=== PATIENT | male | born 1945 | race Caucasian/White ===

== ENCOUNTER 2021-01-10 07:41 | Outpatient (REF) | payer MEDICARE, SELFPAY ==
[2021-01-10 11:15] LABS: Hematocrit 42.3 % (42-52); Hemoglobin 14.1 g/dl (14.0-18.0); Mean Corpuscular HGB Conc 33.3 g/dl (31.0-36.0); Mean Corpuscular Hemoglobin 30.4 pg (27.0-33.0); Mean Corpuscular Volume 91.2 fL (80-98); Platelet Count 367 X10*3/uL (160-400); Red Blood Count 4.64 X10*6/uL (4.60-5.80); Red Cell Distribution Width 13.1 % (11.0-16.0); White Blood Count 8.9 X10*3/uL (4.8-10.8)
[2021-01-10 11:24] LABS: Estimated Average Glucose 146 mg/dL; Hemoglobin A1c % 6.7 %
[2021-01-10 11:46] LABS: Alanine Aminotransferase 82 U/L (0-40); Albumin Level 4.2 g/dL (3.5-5.0); Alkaline Phosphatase 90 U/L (39-117); Anion Gap 14 (12-20); Aspartate Amino Transferase 57 U/L (5-37); Bilirubin Total 0.3 mg/dL (0.0-1.0); Blood Urea Nitrogen 8 mg/dL (9-16); Calcium 9.5 mg/dL (8.4-10.2); Carbon Dioxide 32 mmol/L (22-29); Chloride 97 mmol/L (96-108); Cholesterol 147 mg/dL; Estimated Glomerular Filt Rate > 60; Glucose Fasting 168 mg/dL (60-99); HDL Cholesterol 54 mg/dL; LDL Cholesterol Calculated 61 mg/dl; Potassium 5.5 mmol/L (3.3-5.1); Sodium 137 mmol/L (135-145); Total Protein 7.4 g/dL (6.5-8.0); Triglycerides 162 mg/dL
[2021-01-10 12:02] LABS: Creatinine Urine 116.48 mg/dL; Microalbum/Creatinine Ratio Ur 64.3 ug/mg cr
[2021-01-10 12:10] LABS: Prostate Specific Antigen Scr 0.18 ng/mL (<0.05-4.0)
== END 2021-01-10 07:42 | disposition home or self-care (01) ==
LOC: HO.HMGCLDS 07:41
PROVIDERS: PCP Internal Medicine; Visit Provider Internal Medicine
DX: E11.9 Type 2 diabetes mellitus without complications (principal); I10 Essential (primary) hypertension; E78.5 Hyperlipidemia, unspecified
CPT/HCPCS: 36415; 80053; 80061; 82043; 83036; 84153; 85027

== ENCOUNTER 2021-02-17 14:22 | Outpatient (REF) | payer MEDICARE, SELFPAY ==
[2021-02-17 16:22] LABS: Hematocrit 43.3 % (42-52); Hemoglobin 15.3 g/dl (14.0-18.0); Mean Corpuscular HGB Conc 35.3 g/dl (31.0-36.0); Mean Corpuscular Hemoglobin 30.6 pg (27.0-33.0); Mean Corpuscular Volume 86.6 fL (80-98); Mean Platelet Volume 8.9 fL (9.4-12.4); Platelet Count 413 X10*3/uL (160-400); Red Cell Distribution Width 12.8 % (11.0-16.0); White Blood Count 11.9 X10*3/uL (4.8-10.8)
[2021-02-17 16:32] LABS: Estimated Average Glucose 160 mg/dL; Hemoglobin A1c % 7.2 %
[2021-02-17 16:38] LABS: Glucose Urine UA 100 MG/DL (NEG); Leukocyte Esterase Urine NEG (NEG); Nitrite Urine NEG (NEG); PH 6.5 (5.0-8.0); Urine Blood TRACE (NEG); Urine Ketones NEG (NEG); Urine Protein NEG (NEG-TRACE)
[2021-02-17 16:39] LABS: Appearance Urine CLEAR; Color Urine DARK YELLOW
[2021-02-17 16:50] LABS: Alanine Aminotransferase 58 U/L (0-40); Albumin Level 4.6 g/dL (3.5-5.0); Alkaline Phosphatase 81 U/L (39-117); Anion Gap 17 (12-20); Aspartate Amino Transferase 34 U/L (5-37); Bilirubin Total 0.4 mg/dL (0.0-1.0); Blood Urea Nitrogen 17 mg/dL (9-16); Calcium 9.7 mg/dL (8.4-10.2); Carbon Dioxide 27 mmol/L (22-29); Chloride 90 mmol/L (96-108); Cholesterol 170 mg/dL; Estimated Glomerular Filt Rate > 60; Glucose Fasting 164 mg/dL (60-99); HDL Cholesterol 67 mg/dL; LDL Cholesterol Calculated 65 mg/dl; Potassium 4.2 mmol/L (3.3-5.1); Sodium 130 mmol/L (135-145); Total Protein 7.7 g/dL (6.5-8.0); Triglycerides 192 mg/dL
[2021-02-17 16:57] LABS: Mucus Urine TRACE /LPF; RBC Urine 0-2 /HPF (0); WBC Urine 0-2 /HPF (0-4)
[2021-02-17 17:03] LABS: Creatinine Urine 126.23 mg/dL; Microalbum/Creatinine Ratio Ur 101.4 ug/mg cr
== END 2021-02-17 14:23 | disposition home or self-care (01) ==
LOC: HO.HMGCLDS 14:22
PROVIDERS: PCP Internal Medicine; Visit Provider Internal Medicine
DX: E11.9 Type 2 diabetes mellitus without complications (principal); E78.5 Hyperlipidemia, unspecified; E87.5 Hyperkalemia; I10 Essential (primary) hypertension; F41.9 Anxiety disorder, unspecified
CPT/HCPCS: 36415; 80048; 80053; 80061; 81001; 82043; 83036; 85027

== ENCOUNTER 2021-04-26 08:03 | Outpatient (REF) | payer MEDICARE, SELFPAY ==
[2021-04-26 11:26] LABS: Glucose Urine UA 100 MG/DL (NEG); Leukocyte Esterase Urine NEG (NEG); Nitrite Urine NEG (NEG); PH 6.5 (5.0-8.0); Urine Blood NEG (NEG); Urine Ketones NEG (NEG); Urine Protein 1+ MG/DL (NEG-TRACE)
[2021-04-26 11:28] LABS: Appearance Urine CLEAR; Color Urine YELLOW
[2021-04-26 11:42] LABS: Squamous Epithelial Cell Urine TRACE /LPF; WBC Urine 0-2 /HPF (0-4)
[2021-04-26 11:45] LABS: Anion Gap 15 (12-20); Blood Urea Nitrogen 14 mg/dL (9-16); Calcium 9.8 mg/dL (8.4-10.2); Carbon Dioxide 30 mmol/L (22-29); Chloride 92 mmol/L (96-108); Estimated Glomerular Filt Rate > 60; Glucose Random 128 mg/dL (60-115); Potassium 4.7 mmol/L (3.3-5.1); Sodium 132 mmol/L (135-145)
== END 2021-04-26 08:04 | disposition home or self-care (01) ==
LOC: HO.HMGCLDS 08:03
PROVIDERS: PCP Internal Medicine; Visit Provider Internal Medicine
DX: E87.1 Hypo-osmolality and hyponatremia (principal); E78.5 Hyperlipidemia, unspecified; E87.5 Hyperkalemia; I10 Essential (primary) hypertension; E11.9 Type 2 diabetes mellitus without complications
CPT/HCPCS: 36415; 80048; 81001

== ENCOUNTER 2021-07-19 07:02 | Outpatient (REF) | payer MEDICARE, SELFPAY ==
[2021-07-19 11:19] LABS: Appearance Urine CLEAR; Color Urine YELLOW; Glucose Urine UA 100 MG/DL (NEG); Leukocyte Esterase Urine NEG (NEG); Nitrite Urine NEG (NEG); Urine Blood NEG (NEG); Urine Ketones NEG (NEG); Urine Protein NEG (NEG-TRACE)
[2021-07-19 11:32] LABS: MANUAL DIFF FLAG NO
[2021-07-19 11:43] LABS: Basophils Percent Auto 0.5 % (0-2); Eosinophils Absolute Auto 0.6 X10*3/uL (0.0-0.4); Eosinophils Percent Auto 8.5 % (0-4); Hematocrit 41.8 % (42-52); Hemoglobin 14.2 g/dl (14.0-18.0); Imm Gran Abs Auto 0.02 X10*3/uL (0.00-0.03); Imm Gran Pct Auto 0.3 % (0.0-0.4); Lymphocytes Absolute Auto 3.3 X10*3/uL (1.2-4.9); Lymphocytes Percent Auto 43.3 % (20-40); Mean Corpuscular Hemoglobin 30.5 pg (27.0-33.0); Mean Corpuscular Volume 89.7 fL (80-98); Mean Platelet Volume 9.1 fL (9.4-12.4); Monocytes Absolute Auto 0.8 X10*3/uL (0.1-1.2); Monocytes Percent Auto 9.9 % (2-11); Neutrophils Absolute Auto 2.8 X10*3/uL (2.0-8.3); Neutrophils Percent Auto 37.5 % (45-73); Platelet Count 329 X10*3/uL (160-400); Red Blood Count 4.66 X10*6/uL (4.60-5.80); Red Cell Distribution Width 12.9 % (11.0-16.0); White Blood Count 7.6 X10*3/uL (4.8-10.8)
[2021-07-19 11:49] LABS: Estimated Average Glucose 137 mg/dL; Hemoglobin A1C 160.7444 umol/L; Hemoglobin A1c % 6.4 %
[2021-07-19 12:08] LABS: Alanine Aminotransferase 64 U/L (0-40); Albumin Level 4.1 g/dL (3.5-5.0); Alkaline Phosphatase 72 U/L (39-117); Anion Gap 18 (12-20); Aspartate Amino Transferase 46 U/L (5-37); Bilirubin Total 0.6 mg/dL (0.0-1.0); Blood Urea Nitrogen 9 mg/dL (9-16); Calcium 9.7 mg/dL (8.4-10.2); Carbon Dioxide 29 mmol/L (22-29); Chloride 95 mmol/L (96-108); Cholesterol 160 mg/dL; Estimated Glomerular Filt Rate > 60; Glucose Fasting 141 mg/dL (60-99); HDL Cholesterol 55 mg/dL; LDL Cholesterol Calculated 75 mg/dl; Potassium 4.7 mmol/L (3.3-5.1); Sodium 137 mmol/L (135-145); Total Protein 6.9 g/dL (6.5-8.0); Triglycerides 153 mg/dL
[2021-07-19 12:17] LABS: Anion Gap 17 (12-20); Blood Urea Nitrogen 9 mg/dL (9-16); Calcium 9.8 mg/dL (8.4-10.2); Carbon Dioxide 29 mmol/L (22-29); Chloride 95 mmol/L (96-108); Estimated Glomerular Filt Rate > 60; Glucose Random 138 mg/dL (60-115); Magnesium 1.6 mg/dL (1.6-2.6); Potassium 4.6 mmol/L (3.3-5.1); Sodium 136 mmol/L (135-145)
[2021-07-19 12:18] LABS: Creatinine Urine 59.46 mg/dL; Microalbum/Creatinine Ratio Ur 38.6 ug/mg cr
[2021-07-19 12:32] LABS: TSH reflex Free T4 2.22 uIU/mL (0.32-4.0)
[2021-07-19 13:14] LABS: RBC Urine 0-2 /HPF (0)
[2021-07-19 13:15] LABS: WBC Urine 0-2 /HPF (0-4)
== END 2021-07-19 07:03 | disposition home or self-care (01) ==
LOC: HO.HMGCLDS 07:02
PROVIDERS: PCP Internal Medicine; Visit Provider Internal Medicine Cardiovascular Disease
DX: I48.0 Paroxysmal atrial fibrillation (principal); I10 Essential (primary) hypertension; E87.5 Hyperkalemia; E87.1 Hypo-osmolality and hyponatremia; E78.5 Hyperlipidemia, unspecified; E11.9 Type 2 diabetes mellitus without complications
CPT/HCPCS: 36415; 80048; 80053; 80061; 81001; 82043; 83036; 83735; 84443; 85025

== ENCOUNTER 2022-05-16 06:07 | Outpatient (REF) | payer MEDICARE, SELFPAY ==
[2022-05-16 12:02] LABS: Estimated Average Glucose 137 mg/dL; Hemoglobin A1c % 6.4 %
[2022-05-16 12:22] LABS: Alanine Aminotransferase 68 U/L (0-40); Albumin Level 4.3 g/dL (3.5-5.0); Alkaline Phosphatase 61 U/L (39-117); Anion Gap 14 (12-20); Aspartate Amino Transferase 38 U/L (5-37); Bilirubin Total 0.6 mg/dL (0.0-1.0); Blood Urea Nitrogen 11 mg/dL (9-16); Calcium 9.6 mg/dL (8.4-10.2); Carbon Dioxide 32 mmol/L (22-29); Chloride 95 mmol/L (96-108); Cholesterol 175 mg/dL; Estimated Glomerular Filt Rate > 60; Glucose Fasting 150 mg/dL (60-99); HDL Cholesterol 54 mg/dL; LDL Cholesterol Calculated 93 mg/dl; Potassium 4.7 mmol/L (3.3-5.1); Sodium 136 mmol/L (135-145); Total Protein 7.2 g/dL (6.5-8.0); Triglycerides 142 mg/dL
[2022-05-16 12:40] LABS: Creatinine Urine 68.41 mg/dL; Microalbum/Creatinine Ratio Ur 43.8 ug/mg cr
== END 2022-05-16 06:08 | disposition home or self-care (01) ==
LOC: HO.HMGCLDS 06:07
PROVIDERS: Visit Provider Internal Medicine
DX: E11.9 Type 2 diabetes mellitus without complications (principal); E78.5 Hyperlipidemia, unspecified; I10 Essential (primary) hypertension
CPT/HCPCS: 36415; 80053; 80061; 82043; 83036

== ENCOUNTER 2022-08-11 06:09 | Outpatient (REF) | payer MEDICARE, SELFPAY ==
[2022-08-11 11:46] LABS: Estimated Average Glucose 146 mg/dL; Hemoglobin A1c % 6.7 %
[2022-08-11 11:53] LABS: Anion Gap 15 (12-20); Blood Urea Nitrogen 12 mg/dL (9-16); Carbon Dioxide 31 mmol/L (22-29); Chloride 93 mmol/L (96-108); Estimated Glomerular Filt Rate > 60; Glucose Fasting 158 mg/dL (60-99); Potassium 4.4 mmol/L (3.3-5.1); Sodium 135 mmol/L (135-145)
[2022-08-11 11:54] LABS: Alanine Aminotransferase 59 U/L (0-40); Albumin Level 4.2 g/dL (3.5-5.0); Alkaline Phosphatase 67 U/L (39-117); Aspartate Amino Transferase 39 U/L (5-37); Bilirubin Total 0.4 mg/dL (0.0-1.0); Calcium 9.8 mg/dL (8.4-10.2); Cholesterol 180 mg/dL; HDL Cholesterol 56 mg/dL; LDL Cholesterol Calculated 76 mg/dl; Total Protein 6.8 g/dL (6.5-8.0); Triglycerides 241 mg/dL
== END 2022-08-11 06:10 | disposition home or self-care (01) ==
LOC: HO.HMGCLDS 06:09
PROVIDERS: PCP Internal Medicine; Visit Provider Internal Medicine
DX: E11.9 Type 2 diabetes mellitus without complications (principal); E78.5 Hyperlipidemia, unspecified; I10 Essential (primary) hypertension
CPT/HCPCS: 36415; 80053; 80061; 83036

== ENCOUNTER 2023-01-08 07:14 | Outpatient (REF) | payer MEDICARE, SELFPAY ==
[2023-01-08 12:19] LABS: Estimated Average Glucose 140 mg/dL; Hemoglobin A1c % 6.5 %
[2023-01-08 12:34] LABS: Alanine Aminotransferase 69 U/L (0-40); Alkaline Phosphatase 73 U/L (39-117); Anion Gap 16 (12-20); Aspartate Amino Transferase 51 U/L (5-37); Bilirubin Total 0.6 mg/dL (0.0-1.0); Blood Urea Nitrogen 12 mg/dL (9-16); Calcium 9.2 mg/dL (8.4-10.2); Carbon Dioxide 29 mmol/L (22-29); Chloride 96 mmol/L (96-108); Cholesterol 172 mg/dL; Estimated Glomerular Filt Rate > 60; Glucose Fasting 135 mg/dL (60-99); HDL Cholesterol 56 mg/dL; LDL Cholesterol Calculated 77 mg/dl; Potassium 4.3 mmol/L (3.3-5.1); Sodium 137 mmol/L (135-145); Total Protein 6.5 g/dL (6.5-8.0); Triglycerides 195 mg/dL
[2023-01-08 12:44] LABS: Creatinine Urine 111.51 mg/dL; Microalbum/Creatinine Ratio Ur 67.2 ug/mg cr
== END 2023-01-08 07:15 | disposition home or self-care (01) ==
LOC: HO.HMGCLDS 07:14
PROVIDERS: PCP Internal Medicine; Visit Provider Internal Medicine
DX: Z00.00 Encounter for general adult medical examination without abnormal findings (principal); Z12.5 Encounter for screening for malignant neoplasm of prostate; E11.9 Type 2 diabetes mellitus without complications; E78.5 Hyperlipidemia, unspecified; I10 Essential (primary) hypertension
CPT/HCPCS: 36415; 80053; 80061; 82043; 83036; 84153

== ENCOUNTER 2023-01-26 07:50 | Outpatient (REF) | payer MEDICARE, SELFPAY ==
[2023-01-26 12:17] LABS: C Reactive Protein 0.22 mg/dL (< or = 0.50)
[2023-01-26 12:39] LABS: Erythrocyte Sedimentation Rate 5 MM/HR (0-15)
== END 2023-01-26 07:51 | disposition home or self-care (01) ==
LOC: HO.HMGCLDS 07:50
PROVIDERS: PCP Internal Medicine; Visit Provider Internal Medicine
DX: H49.20 Sixth [abducent] nerve palsy, unspecified eye (principal)
CPT/HCPCS: 36415; 85652; 86140

== ENCOUNTER 2023-05-01 07:08 | Outpatient (REF) | payer MEDICARE, SELFPAY ==
[2023-05-01 11:12] LABS: MANUAL DIFF FLAG NO
[2023-05-01 11:37] LABS: Basophils Percent Auto 0.4 % (0-2); Eosinophils Absolute Auto 0.4 X10*3/uL (0.0-0.4); Eosinophils Percent Auto 4.3 % (0-4); Hematocrit 44.1 % (42.0-52.0); Hemoglobin 15.1 g/dl (14.0-18.0); Imm Gran Abs Auto 0.03 X10*3/uL (0.00-0.03); Imm Gran Pct Auto 0.3 % (0.0-0.4); Lymphocytes Absolute Auto 3.6 X10*3/uL (1.2-4.9); Lymphocytes Percent Auto 34.6 % (20-40); Mean Corpuscular HGB Conc 34.2 g/dl (31.0-36.0); Mean Corpuscular Hemoglobin 29.9 pg (27.0-33.0); Mean Corpuscular Volume 87.3 fL (80.0-98.0); Mean Platelet Volume 8.8 fL (9.4-12.4); Monocytes Absolute Auto 0.8 X10*3/uL (0.1-1.2); Monocytes Percent Auto 8.1 % (2-11); Neutrophils Absolute Auto 5.4 x10*3/uL (2.0-8.3); Neutrophils Percent Auto 52.3 % (45-73); Platelet Count 329 X10*3/uL (160-400); Red Blood Count 5.05 X10*6/uL (4.60-5.80); Red Cell Distribution Width 13.3 % (11.0-16.0); White Blood Count 10.3 X10*3/uL (4.8-10.8)
[2023-05-01 11:43] LABS: Estimated Average Glucose 143 mg/dL; Hemoglobin A1c % 6.6 %
[2023-05-01 11:46] LABS: Alanine Aminotransferase 44 U/L (0-40); Albumin Level 4.1 g/dL (3.5-5.0); Alkaline Phosphatase 55 U/L (39-117); Anion Gap 17 (12-20); Aspartate Amino Transferase 27 U/L (5-37); Bilirubin Total 0.6 mg/dL (0.0-1.0); Blood Urea Nitrogen 11 mg/dL (9-16); Calcium 10.1 mg/dL (8.4-10.2); Carbon Dioxide 28 mmol/L (22-29); Chloride 95 mmol/L (96-108); Cholesterol 166 mg/dL; Estimated Glomerular Filt Rate > 60; Glucose Fasting 147 mg/dL (60-99); HDL Cholesterol 64 mg/dL; LDL Cholesterol Calculated 79 mg/dl; Potassium 4.7 mmol/L (3.3-5.1); Sodium 135 mmol/L (135-145); Triglycerides 116 mg/dL
[2023-05-01 12:17] LABS: Creatinine Urine 130.67 mg/dL; Microalbum/Creatinine Ratio Ur 54.3 ug/mg cr
== END 2023-05-01 07:09 | disposition home or self-care (01) ==
LOC: HO.HMGCLDS 07:08
PROVIDERS: PCP Internal Medicine; Visit Provider Internal Medicine
DX: H49.20 Sixth [abducent] nerve palsy, unspecified eye (principal); E78.5 Hyperlipidemia, unspecified; I10 Essential (primary) hypertension; E11.9 Type 2 diabetes mellitus without complications
CPT/HCPCS: 36415; 80053; 80061; 82043; 83036; 85025

== ENCOUNTER 2023-05-02 12:32 | Outpatient (AMB) | payer MEDICARE, SELFPAY ==
--- NOTE | 2023-05-02 12:59 | MHC.PC.OV ---
Vital Signs 05/02/23 13:00 Height 6 ft 1 in Weight 233 lb BMI 30.7 BP 120/68 Blood Pressure Location Rt brachial Position Sitting Pulse 76 Pulse Source Pulse Oximeter Pulse Oximetry (%) 96 Oxygen Delivery Method Room Air Intake Visit Reasons: 3m follow up DM Intake Note: Pt is here today for 3 months follow up visit on DM. Allergies amoxicillin [Augmentin] Allergy (Unknown, Verified 05/02/23 13:07) diarrhea clavulanic acid [Augmentin] Allergy (Unknown, Verified 05/02/23 13:07) diarrhea Sulfa (Sulfonamide Antibiotics) [SULFA(SULFONAMIDE ANTIBIOTICS)] Allergy (Unknown, Verified 05/02/23 13:07) Swelling Medication List - Last Reconciled 05/02/23 by Kyung Soot MD apixaban (Eliquis) 5 mg PO BID azelastine 1 spray intranasal BID blood sugar diagnostic QD carvedilol 25 mg PO BID clotrimazole 1% appl topical diltiazem HCl 240 mg PO DAILY dulaglutide (Trulicity) 1.5 mg (0.5 mL) subcut QWEEK duloxetine 60 mg PO DAILY gabapentin 1,200 mg (2 x 600 mg) PO BID glipizide 5 mg PO BID Jardiance (empagliflozin) 10 mg PO DAILY NS ketoconazole 2% 1 appl topical DAILY lancets (OneTouch UltraSoft Lancets) qd lisinopril 40 mg PO DAILY metformin 1,000 mg PO BID omeprazole 40 mg PO DAILY pravastatin 40 mg PO DAILY Tobacco use date assessed: 05/02/23 Fall risk assessment: No Falls in past year Last assessed Fall Risk: 01/11/23 Dental Screening Dental Screen Date: 05/02/23 Did you have a dental visit in the last 12 months?: Yes Did you have a dental problem in the last 6 months where you did not have access to dental care?: No Was dental information given to patient?: Patient has dentist HPI 3m follow up DM HPI Details Patient presents for the follow-up of hypertension hyperlipidemia type 2 diabetes stable on current medications. FORMERLY [facility], LAT[facility] Medical History Annual physical exam Anxiety DM type 2 (diabetes mellitus, type 2) HTN (hypertension) Hyperkalemia Hyperlipidemia Hyponatremia Surgical History History of cataract surgery History of laparoscopic cholecystectomy Family History Father No problems noted. Mother Mental health disorder Son No problems noted. Daughter No problems noted. Daughter No problems noted. Daughter No problems noted. Daughter No problems noted. Social History Housing: House Alcohol intake: never Patient Tobacco Use Status: Never used Tobacco e-Cigarette/Vaping Use: Never Used Second Hand Smoke Exposure: No service: Yes Current occupational status: retired Cognitive needs: No Hearing needs: Yes Vision needs: Yes Questionnaire PHQ-9 Over the last 2 weeks, how often have you been bothered by any of the following problems? 1. Little interest or pleasure in doing things: not at all 2. Feeling down, depressed, or hopeless: not at all 3. Trouble falling or staying asleep, or sleeping too much: not at all 4. Feeling tired or having little energy: not at all 5. Poor appetite or overeating: not at all 6. Feeling bad about yourself - or that you are a failure or have let yourself or your family down: not at all 7. Trouble concentrating on things, such as reading the newspaper or watching television: not at all 8. Moving or speaking so slowly that other people could have noticed. Or the opposite - being so fidgety or restless that you have been moving around a lot more than usual: not at all 9. Thoughts that you would be better off or of hurting yourself in some way: not at all Total score: 0 Depression Screening Interpretation: Negative Source: Developed by Drs. Fidencio Carl, Loren Quintanilla, Shawn Khan and colleagues, with an educational alyssia from [employer]. Thrive Questionnaire Date Thrive assessed: 05/02/23 I am a: Patient What is your living situation today?: I have a steady place to live Within the past 12 months, did the food you bought not last and you didn't have the money to get more?: Never true Within the past 12 months, did you worry whether your food would run out before you got money to buy more?: Never true Do you have trouble paying for medicines?: No Do you have trouble getting transportation to medical appointments?: No Do you have trouble paying your heating and electricity bill?: No Do you have trouble taking care of your child, family member or friend?: No Do you have trouble with day-to-day activities such as bathing, preparing meals, shopping, managing finances, etc.?: No Are you currently unemployed and looking for a job?: No Are you interested in more education?: No Please select the resources that you would like help with: None Currently or been in a relationship where the following occur: no concerns reported AUDIT C Alcohol Use Questionnaire (AUDIT-C) 1. How often do you have a drink containing alcohol?: Never 3. How often do you have six or more drinks on one occasion?: Never Total Score: 0 SELENA-7 AMB Questionnaire SELENA-7 Date SELENA - 7 assessed: 05/02/23 Feeling nervous, anxious, or on edge: 0 = Not at all Not being able to stop or control worryin = Not at all Worrying too much about different things: 0 = Not at all Trouble relaxin = Not at all Being so restless that it is hard to sit still: 0 = Not at all Becoming easily annoyed or irritable: 0 = Not at all Feeling afraid as if something awful might happen: 0 = Not at all Total SELENA-7 score (0-4 normal; 5-9 mild; 10-14 moderate; 15-21 severe): 0 Source: Developed by Drs. Fidencio Carl, Loren Quintanilla, Shawn Khan and colleagues, with an educational alyssia from [employer]. Review of Systems Const All systems reviewed & are unremarkable except as noted in HPI and below Reports no additional complaints Eyes Reports no additional complaints ENT Reports no additional complaints Card Reports no additional complaints Resp Reports no additional complaints GI Reports no additional complaints Reports no additional complaints Physical exam (Primary Care) Vital Signs: Last Vital Signs Pulse 76 05/02/23 13:00 BP 120/68 05/02/23 13:00 Pulse Ox 96 05/02/23 13:00 Oxygen Delivery Method Room Air 05/02/23 13:00 BMI result Body Mass Index 30.7 Tobacco/Smoking Status: Tobacco use Status Tobacco use date assessed 05/02/23 05/02/23 13:01 Patient Tobacco Use Status Never used Tobacco 05/02/23 13:01 e-Cigarette/Vaping Use Never Used 05/02/23 13:01 PHQ-9: PHQ-9 Score PHQ-9: Total score 0 05/02/23 13:24 Depression Screening Interpretation: Negative Thrive Assessment: Date of Thrive Assessment Date Thrive assessed 05/02/23 05/02/23 13:24 Currently or been in a relationship where the following occur: no concerns reported Const General: no acute distress HENMT Ears: hearing grossly normal bilaterally Face and sinus: Yes normal facial exam Mouth: Normal oral and palatal mucosa present Neck Neck: Yes supple Resp Effort & Inspection: normal respiratory effort Auscultation: clear to auscultation bilaterally Cardio Rhythm: regular rhythm Heart sounds: S1 normal heart sound present and S2 normal heart sound present GI Inspection: Yes normal to inspection Palpation (GI): Soft to palpation Percussion: Yes normal to percussion Auscultation: normal bowel sounds Assessment and Plan Assessment & Plan (1) HTN (hypertension): Code(s): I10 - Essential (primary) hypertension Plan: Continue current medications (2) DM type 2 (diabetes mellitus, type 2): Code(s): E11.9 - Type 2 diabetes mellitus without complications Plan: A1c is 6.6, ADA diet regular activity discussed with the patient. Change Tradjenta to Jardiance 10 mg, continue Trulicity metformin and glipizide. Follow-up in 4 months with a fasting labs before (3) Hyperlipidemia: Code(s): E78.5 - Hyperlipidemia, unspecified Plan: Continue statin Orders: Orders Hemoglobin A1c 4 Months E11.9 - Type 2 diabetes mellitus without complications, E78.5 - Hyperlipidemia, unspecified, I10 - Essential (primary) hypertension Lipid Panel 4 Months E11.9 - Type 2 diabetes mellitus without complications, E78.5 - Hyperlipidemia, unspecified, I10 - Essential (primary) hypertension Microalbumin, Random (w Creat) 4 Months E11.9 - Type 2 diabetes mellitus without complications, E78.5 - Hyperlipidemia, unspecified, I10 - Essential (primary) hypertension Comprehensive [place]. Panel Fast 4 Months E11.9 - Type 2 diabetes mellitus without complications, E78.5 - Hyperlipidemia, unspecified, I10 - Essential (primary) hypertension Medications: New Jardiance (empagliflozin) 10 mg PO DAILY 90 tabs 1RF NS Discontinued linagliptin (Tradjenta) Discontinued Reason: Doctor's Order 5 mg PO DAILY 90 tabs 3RF Coding Level of Care Code Est Pt Level 4 (11554) Diagnoses HTN (hypertension) I10 DM type 2 (diabetes mellitus, type 2) E11.9 Hyperlipidemia E78.5
[2023-05-02 13:00] VITALS: BP 120/68; PULSE 76; O2SAT 96; BMI 30.7
== END 2023-05-02 13:51 | disposition home or self-care (01) ==
PROVIDERS: PCP Internal Medicine; Visit Provider Internal Medicine
DX: I10 Essential (primary) hypertension (principal); E11.9 Type 2 diabetes mellitus without complications; E78.5 Hyperlipidemia, unspecified
CPT/HCPCS: 99214

== ENCOUNTER 2023-09-05 07:04 | Outpatient (REF) | payer MEDICARE, SELFPAY ==
[2023-09-05 11:55] LABS: Estimated Average Glucose 157 mg/dL; Hemoglobin A1c % 7.1 % (<6.0)
[2023-09-05 11:59] LABS: Alanine Aminotransferase 53 U/L (0-40); Alkaline Phosphatase 70 U/L (39-117); Anion Gap 12 (12-20); Aspartate Amino Transferase 40 U/L (5-37); Bilirubin Total 0.5 mg/dL (0.0-1.0); Blood Urea Nitrogen 10 mg/dL (9-16); Calcium 9.9 mg/dL (8.4-10.2); Carbon Dioxide 30 mmol/L (22-29); Chloride 100 mmol/L (96-108); Cholesterol 169 mg/dL (<200); Estimated Glomerular Filt Rate > 60; Glucose Fasting 152 mg/dL (60-99); HDL Cholesterol 52 mg/dL (>40); LDL Cholesterol Calculated 80 mg/dL (<100); Potassium 4.4 mmol/L (3.3-5.1); Sodium 138 mmol/L (135-145); Triglycerides 188 mg/dL (<150)
[2023-09-05 12:21] LABS: Creatinine Urine 78.16 mg/dL; Microalbum/Creatinine Ratio Ur 53.7 ug/mg cr (<30)
== END 2023-09-05 07:05 | disposition home or self-care (01) ==
LOC: HO.HMGCLDS 07:04
PROVIDERS: PCP Internal Medicine; Visit Provider Internal Medicine
DX: I10 Essential (primary) hypertension (principal); E11.9 Type 2 diabetes mellitus without complications; E78.5 Hyperlipidemia, unspecified
CPT/HCPCS: 36415; 80053; 80061; 82043; 82570; 83036

== ENCOUNTER 2023-09-06 09:42 | Outpatient (AMB) | payer MEDICARE, SELFPAY ==
--- NOTE | 2023-09-06 09:46 | A.OFFPC_ITS ---
Vital Signs 09/06/23 09:47 Height 6 ft 1 in Weight 233 lb BMI 30.7 BP 120/78 Blood Pressure Location Lt brachial Position Sitting Pulse 66 Pulse Source Pulse Oximeter Pulse Oximetry (%) 97 Oxygen Delivery Method Room Air Intake Visit Reasons: EP, 4 Month FU Allergies amoxicillin [Augmentin] Allergy (Unknown, Verified 09/06/23 09:48) diarrhea clavulanic acid [Augmentin] Allergy (Unknown, Verified 09/06/23 09:48) diarrhea Sulfa (Sulfonamide Antibiotics) [SULFA(SULFONAMIDE ANTIBIOTICS)] Allergy (Unknown, Verified 09/06/23 09:48) Swelling Tobacco use date assessed: 05/02/23 Fall risk assessment: No Falls in past year Last assessed Fall Risk: 09/06/23 HPI EP, 4 Month FU HPI Details Pt presents for f/u DM2, HTN, hyperlipid, stable on meds PFSH Medical History Annual physical exam Anxiety DM type 2 (diabetes mellitus, type 2) HTN (hypertension) Hyperkalemia Hyperlipidemia Hyponatremia Surgical History History of cataract surgery History of laparoscopic cholecystectomy Family History Father No problems noted. Mother Mental health disorder Son No problems noted. Daughter No problems noted. Daughter No problems noted. Daughter No problems noted. Daughter No problems noted. Social History Housing: House Alcohol intake: never Patient Tobacco Use Status: Never used Tobacco e-Cigarette/Vaping Use: Never Used Second Hand Smoke Exposure: No service: Yes Current occupational status: retired Cognitive needs: No Hearing needs: Yes Vision needs: Yes Questionnaire Thrive Questionnaire Date Thrive assessed: 05/02/23 SELENA-7 AMB Questionnaire SELENA-7 Date SELENA - 7 assessed: 05/02/23 Source: Developed by Drs. Fidencio Carl, Loren Quintanilla, Shawn Khan and colleagues, with an educational alyssia from [employer] Physical exam (Primary Care) Vital Signs: Last Vital Signs Pulse 66 09/06/23 09:47 BP 130/100 H 09/06/23 09:47 Pulse Ox 97 09/06/23 09:47 Oxygen Delivery Method Room Air 09/06/23 09:47 BMI result Body Mass Index 30.7 Tobacco/Smoking Status: Tobacco use Status Tobacco use date assessed 05/02/23 09/06/23 09:47 Patient Tobacco Use Status Never used Tobacco 09/06/23 09:47 e-Cigarette/Vaping Use Never Used 09/06/23 09:47 Thrive Assessment: Date of Thrive Assessment Date Thrive assessed 05/02/23 09/06/23 09:47 Const General: no acute distress HENMT Head: Yes normal to inspection Ears: hearing grossly normal bilaterally Face and sinus: Yes normal facial exam Eyes General: appearance normal, both eyes and all related structures Neck Neck: Yes supple Resp Effort & Inspection: normal respiratory effort Auscultation: clear to auscultation bilaterally Cardio Rhythm: regular rhythm Heart sounds: S1 normal heart sound present and S2 normal heart sound present GI Inspection: Yes normal to inspection Palpation (GI): Soft to palpation Percussion: Yes normal to percussion Auscultation: normal bowel sounds Extrem General: Yes no clubbing, cyanosis or edema Assessment and Plan Assessment & Plan (1) Hyperlipidemia: Code(s): E78.5 - Hyperlipidemia, unspecified Plan: cont statin (2) HTN (hypertension): Code(s): I10 - Essential (primary) hypertension Plan: cont meds (3) DM type 2 (diabetes mellitus, type 2): Code(s): E11.9 - Type 2 diabetes mellitus without complications Plan: A1C is 7.0, ADA, exercise, weight loss discussed, increase Jardience to 25 mg and cont other meds, f/u 6 months Orders: Orders Complete Blood Count Auto Diff 6 Months E11.9 - Type 2 diabetes mellitus without complications, E78.5 - Hyperlipidemia, unspecified, I10 - Essential (primary) hypertension Lipid Panel 6 Months E11.9 - Type 2 diabetes mellitus without complications, E78.5 - Hyperlipidemia, unspecified, I10 - Essential (primary) hypertension Hemoglobin A1c 6 Months E11.9 - Type 2 diabetes mellitus without complications, E78.5 - Hyperlipidemia, unspecified, I10 - Essential (primary) hypertension Microalbumin, Random (w Creat) 6 Months E11.9 - Type 2 diabetes mellitus without complications, E78.5 - Hyperlipidemia, unspecified, I10 - Essential (primary) hypertension Comprehensive [place]. Panel Fast 6 Months E11.9 - Type 2 diabetes mellitus without complications, E78.5 - Hyperlipidemia, unspecified, I10 - Essential (primary) hypertension Medications: New empagliflozin (Jardiance) 25 mg PO DAILY 90 tabs 3RF Discontinued Jardiance (empagliflozin) Discontinued Reason: Doctor's Order 10 mg PO DAILY 90 tabs 1RF NS Coding Level of Care Code Est Pt Level 4 (27605) Diagnoses Hyperlipidemia E78.5 HTN (hypertension) I10 DM type 2 (diabetes mellitus, type 2) E11.9
[2023-09-06 09:47] VITALS: BP 120/78; PULSE 66; O2SAT 97; BMI 30.7
== END 2023-09-06 10:23 | disposition home or self-care (01) ==
PROVIDERS: PCP Internal Medicine; Visit Provider Internal Medicine
DX: E78.5 Hyperlipidemia, unspecified (principal); I10 Essential (primary) hypertension; E11.9 Type 2 diabetes mellitus without complications
CPT/HCPCS: 99214

== ENCOUNTER 2024-01-07 10:01 | Outpatient (AMB) | payer MEDICARE, SELFPAY ==
[2024-01-07 10:12] VITALS: BP 126/82; PULSE 92; O2SAT 96; BMI 29.0
--- NOTE | 2024-01-07 10:12 | MHC.PC.OV ---
Vital Signs 01/07/24 10:12 Height 6 ft 1 in Weight 220 lb BMI 29.0 BP 126/82 Blood Pressure Location Lt brachial Position Sitting Pulse 92 Pulse Source Pulse Oximeter Pulse Oximetry (%) 96 Oxygen Delivery Method Room Air Intake Visit Reasons: 4 month fu Intake Note: Pt is here today for 4 months follow up on labs. Allergies amoxicillin [Augmentin] Allergy (Unknown, Verified 01/07/24 10:13) diarrhea clavulanic acid [Augmentin] Allergy (Unknown, Verified 01/07/24 10:13) diarrhea Sulfa (Sulfonamide Antibiotics) [SULFA(SULFONAMIDE ANTIBIOTICS)] Allergy (Unknown, Verified 01/07/24 10:13) Swelling Medication List - Last Reconciled 01/07/24 by Kyung Soto MD apixaban (Eliquis) 5 mg PO BID azelastine 1 spray intranasal BID blood sugar diagnostic QD carvedilol 25 mg PO BID clotrimazole 1% appl topical diltiazem HCl 240 mg PO DAILY dulaglutide (Trulicity) 1.5 mg (0.5 mL) subcut QWEEK duloxetine 60 mg PO DAILY empagliflozin (Jardiance) 25 mg PO DAILY gabapentin 1,200 mg (2 x 600 mg) PO BID glipizide 5 mg PO BID ketoconazole 2% 1 appl topical DAILY lancets (OneTouch UltraSoft Lancets) qd lisinopril 40 mg PO DAILY metformin 1,000 mg PO BID omeprazole 40 mg PO DAILY pravastatin 40 mg PO DAILY Tobacco use date assessed: 01/07/24 Fall risk assessment: No Falls in past year Last assessed Fall Risk: 01/07/24 Dental Screening Dental Screen Date: 01/07/24 Did you have a dental visit in the last 12 months?: Yes Did you have a dental problem in the last 6 months where you did not have access to dental care?: No Was dental information given to patient?: Patient has dentist HPI 4 month fu HPI Details Patient presents for the follow-up of hypertension hyperlipidemia type 2 diabetes stable on current medications. he has not been monitoring his blood glucose but lost 10 lb in the last 4 months. FORMERLY [facility], [facility] Medical History Annual physical exam Anxiety DM type 2 (diabetes mellitus, type 2) HTN (hypertension) Hyperkalemia Hyperlipidemia Hyponatremia Surgical History History of laparoscopic cholecystectomy History of cataract surgery Family History Father No problems noted. Mother Mental health disorder Son No problems noted. Daughter No problems noted. Daughter No problems noted. Daughter No problems noted. Daughter No problems noted. Social History Housing: House Alcohol intake: never Patient Tobacco Use Status: Never used Tobacco e-Cigarette/Vaping Use: Never Used Second Hand Smoke Exposure: No service: Yes Current occupational status: retired Cognitive needs: No Hearing needs: Yes Vision needs: Yes Questionnaire PHQ-9 Over the last 2 weeks, how often have you been bothered by any of the following problems? 37760 - PHQ-9 Billing: Patient declined-do not bill Source: Developed by Drs. Fidencio Carl, Shawn Patterson and colleagues, with an educational alyssia from [employer]. Thrive Questionnaire Date Thrive assessed: 01/07/24 I am a: Patient What is your living situation today?: I have a steady place to live Within the past 12 months, did the food you bought not last and you didn't have the money to get more?: Never true Within the past 12 months, did you worry whether your food would run out before you got money to buy more?: Never true Do you have trouble paying for medicines?: No Do you have trouble getting transportation to medical appointments?: No Do you have trouble paying your heating and electricity bill?: No Do you have trouble taking care of your child, family member or friend?: No Do you have trouble with day-to-day activities such as bathing, preparing meals, shopping, managing finances, etc.?: No Are you currently unemployed and looking for a job?: No Are you interested in more education?: No Please select the resources that you would like help with: None THRIVE Score: 0 SELENA-7 AMB Questionnaire SELENA-7 Date SELENA - 7 assessed: 01/07/24 Source: Developed by Drs. Fidencio Carl, Shawn Patterson and colleagues, with an educational alyssia from [employer]. SELENA-7 Assessment Billing SELENA-7 Assessment Tool: pt declined-do not bill Review of Systems Const All systems reviewed & are unremarkable except as noted in HPI and below Reports no additional complaints Eyes Reports no additional complaints ENT Reports no additional complaints Card Reports no additional complaints Resp Reports no additional complaints GI Reports no additional complaints Physical exam (Primary Care) Vital Signs: Last Vital Signs Pulse 92 01/07/24 10:12 BP 126/82 01/07/24 10:12 Pulse Ox 96 01/07/24 10:12 Oxygen Delivery Method Room Air 01/07/24 10:12 BMI result Body Mass Index 29.0 Tobacco/Smoking Status: Tobacco use Status Tobacco use date assessed 01/07/24 01/07/24 10:14 Patient Tobacco Use Status Never used Tobacco 01/07/24 10:14 e-Cigarette/Vaping Use Never Used 01/07/24 10:14 Thrive Assessment: Date of Thrive Assessment Date Thrive assessed 01/07/24 01/07/24 10:27 Const General: no acute distress HENMT Head: Yes normal to inspection Face and sinus: Yes normal facial exam Throat: Yes posterior oropharynx normal Neck Neck: Yes no lymphadenopathy and Yes supple Resp Effort & Inspection: normal respiratory effort Auscultation: clear to auscultation bilaterally Cardio Rhythm: regular rhythm Heart sounds: S1 normal heart sound present and S2 normal heart sound present Assessment and Plan Assessment & Plan (1) DM type 2 (diabetes mellitus, type 2): Code(s): E11.9 - Type 2 diabetes mellitus without complications Plan: ADA diet increase physical activity weight loss discussed with the patient. Follow-up in 2 months with a fasting labs before (2) HTN (hypertension): Code(s): I10 - Essential (primary) hypertension Plan: Continue current medications (3) Hyperlipidemia: Code(s): E78.5 - Hyperlipidemia, unspecified Plan: Continue statin (4) Neuropathy: Code(s): G62.9 - Polyneuropathy, unspecified Plan: Continue gabapentin (5) Anxiety: Code(s): F41.9 - Anxiety disorder, unspecified Plan: Continue duloxetine Coding Level of Care Code Est Pt Level 4 (48178) Diagnoses DM type 2 (diabetes mellitus, type 2) E11.9 HTN (hypertension) I10 Hyperlipidemia E78.5 Neuropathy G62.9 Anxiety F41.9
== END 2024-01-07 11:12 | disposition home or self-care (01) ==
PROVIDERS: PCP Internal Medicine; Visit Provider Internal Medicine
DX: E11.42 Type 2 diabetes mellitus with diabetic polyneuropathy (principal); I10 Essential (primary) hypertension; E78.5 Hyperlipidemia, unspecified; G62.9 Polyneuropathy, unspecified; F41.9 Anxiety disorder, unspecified
CPT/HCPCS: 99214

== ENCOUNTER 2024-03-25 07:16 | Outpatient (REF) | payer MEDICARE, SELFPAY ==
[2024-03-25 10:34] LABS: MANUAL DIFF FLAG NO
[2024-03-25 10:49] LABS: Basophils Percent Auto 0.4 % (0-2); Eosinophils Absolute Auto 0.3 X10*3/uL (0.0-0.4); Eosinophils Percent Auto 3.5 % (0-4); Hematocrit 45.7 % (42.0-52.0); Hemoglobin 15.5 g/dl (14.0-18.0); Imm Gran Abs Auto 0.01 X10*3/uL (0.00-0.03); Imm Gran Pct Auto 0.1 % (0.0-0.4); Lymphocytes Absolute Auto 3.5 X10*3/uL (1.2-4.9); Lymphocytes Percent Auto 41.8 % (20-40); Mean Corpuscular HGB Conc 33.9 g/dl (31.0-36.0); Mean Corpuscular Hemoglobin 29.8 pg (27.0-33.0); Mean Corpuscular Volume 87.9 fL (80.0-98.0); Monocytes Absolute Auto 0.6 X10*3/uL (0.1-1.2); Monocytes Percent Auto 7.8 % (2-11); Neutrophils Absolute Auto 3.8 x10*3/uL (2.0-8.3); Neutrophils Percent Auto 46.4 % (45-73); Platelet Count 255 X10*3/uL (160-400); Red Cell Distribution Width 14.2 % (11.0-16.0); White Blood Count 8.3 X10*3/uL (4.8-10.8)
[2024-03-25 11:04] LABS: Alanine Aminotransferase 38 U/L (0-40); Albumin Level 3.9 g/dL (3.5-5.0); Alkaline Phosphatase 75 U/L (39-117); Anion Gap 16 (12-20); Aspartate Amino Transferase 19 U/L (5-37); Bilirubin Total 0.5 mg/dL (0.0-1.0); Blood Urea Nitrogen 11 mg/dL (9-16); Calcium 9.8 mg/dL (8.4-10.2); Carbon Dioxide 26 mmol/L (22-29); Chloride 100 mmol/L (96-108); Cholesterol 174 mg/dL (<200); Estimated Glomerular Filt Rate > 60; Glucose Fasting 126 mg/dL (60-99); HDL Cholesterol 56 mg/dL (>40); LDL Cholesterol Calculated 79 mg/dL (<100); Potassium 4.5 mmol/L (3.3-5.1); Sodium 137 mmol/L (135-145); Total Protein 6.6 g/dL (6.5-8.0); Triglycerides 198 mg/dL (<150)
[2024-03-25 11:16] LABS: Estimated Average Glucose 174 mg/dL; Hemoglobin A1c % 7.7 % (<6.0)
[2024-03-25 11:28] LABS: Microalbum/Creatinine Ratio Ur 13.8 ug/mg cr (<30)
== END 2024-03-25 07:17 | disposition home or self-care (01) ==
LOC: HO.HMGCLDS 07:16
PROVIDERS: PCP Internal Medicine; Visit Provider Internal Medicine
DX: E78.5 Hyperlipidemia, unspecified (principal); I10 Essential (primary) hypertension; E11.9 Type 2 diabetes mellitus without complications
CPT/HCPCS: 36415; 80053; 80061; 82043; 82570; 83036; 85025

== ENCOUNTER 2024-03-27 11:45 | Outpatient (AMB) | payer MEDICARE, SELFPAY ==
[2024-03-27 12:03] VITALS: BP 106/66; PULSE 78; O2SAT 95; BMI 29.9
--- NOTE | 2024-03-27 12:03 | A.OFFVIS_ITS ---
Intake Vital Signs 03/27/24 12:03 Height 6 ft 1 in Weight 227 lb BMI 29.9 BP 106/66 Blood Pressure Location Rt brachial Position Sitting Pulse 78 Pulse Source Pulse Oximeter Pulse Oximetry (%) 95 Oxygen Delivery Method Room Air Intake Visit Reasons: [facility] [id number] Allergies amoxicillin [Augmentin] Allergy (Unknown, Verified 03/27/24 12:06) diarrhea clavulanic acid [Augmentin] Allergy (Unknown, Verified 03/27/24 12:06) diarrhea Sulfa (Sulfonamide Antibiotics) [SULFA(SULFONAMIDE ANTIBIOTICS)] Allergy (Unknown, Verified 03/27/24 12:06) Swelling Medication List - Last Reconciled 03/27/24 by Kyung Soto MD apixaban (Eliquis) 5 mg PO BID azelastine 1 spray intranasal BID blood sugar diagnostic QD carvedilol 25 mg PO BID clotrimazole 1% appl topical diltiazem HCl CD 240 mg PO DAILY duloxetine 60 mg PO DAILY empagliflozin (Jardiance) 25 mg PO DAILY gabapentin 1,200 mg (2 x 600 mg) PO BID glipizide 5 mg PO BID ketoconazole 2% 1 appl topical DAILY lancets (OneTouch UltraSoft Lancets) qd lisinopril 40 mg PO DAILY metformin 1,000 mg PO BID omeprazole 40 mg PO DAILY pravastatin 40 mg PO DAILY semaglutide (Ozempic) 0.5 mg (0.736 mL) subcut QWEEK HPI [facility] [id number] HPI Details Patient presents for physical. He had difficulty using Ozempic pen and just start taking it regularly for the last month. Patient denies hypoglycemia and does not check his blood glucose regularly. Initiated the conversation about Advanced Directives. Advanced Directives help? patients prepare for current and future decisions about their medical treatment? and place of care. Discussed with patient that it is a process where a patients? current condition and prognosis are reviewed, their wishes for information? regarding their illness are elicited, and likely medical dilemmas are presented? and options discussed. The form can be amended as needed, reviewed yearly and? make changes as needed IPPE/AWV ? year old presents? for her ? Annual? Wellness Visit, initial visit.? Medical / Social History Reviewed? Past Medical History ?Yes? . ? [place]? of Care / Care Team list updated ?Yes . ? Surgical/Hospitalization? History ?Yes . ? Current Medications? (including OTC and supplements) ?Yes . ? Family History ?Yes? . ? Tobacco? Control form ?Yes . ? AUDIT-C (Alcohol use) form? ?Yes . ? Illicit drug use in Social? History ?Yes . ? Current diagnosis of? depression? ?No ? Appropriate PHQ2/PHQ9? completed ?Yes . ? Data entered by ?Medical? Stock Taker and reviewed by provider ? Fall Risk ? Fall? History? Have you had any falls with? injury in the past year? ?No . ? Have you had two or more? falls in the past year? ?No . ? Fall Risk Assessment: ?No? falls in the past year . ? HRA filled out by? the patient, reviewed by Provider and scanned. ? IPPE/AWV ? Balance? [place]? ?Yes . ? Tandem? walk ?Yes . ? Walk and? Turn ?Yes . ? Rise from? sit to stand ?Yes . ?Vision? Corrective? lens ?Yes ? Vision? screen ? Up-to-date, has an appointment [] for vision? screening and glaucoma screening ?Hearing? Whisper? test ?pass .? Initiated the conversation about Advanced Directives. Advanced Directives help? patients prepare for current and future decisions about their medical treatment? and place of care. Discussed with patient that it is a process where a patients? current condition and prognosis are reviewed, their wishes for information? regarding their illness are elicited, and likely medical dilemmas are presented? and options discussed. The form can be amended as needed, reviewed yearly and? make changes as needed Written? Plan?Completed. See Patient? Documents. [facility] Medical History Annual physical exam Anxiety DM type 2 (diabetes mellitus, type 2) HTN (hypertension) Hyperkalemia Hyperlipidemia Hyponatremia Surgical History History of laparoscopic cholecystectomy History of cataract surgery Family History Father No problems noted. Mother Mental health disorder Son No problems noted. Daughter No problems noted. Daughter No problems noted. Daughter No problems noted. Daughter No problems noted. Social History Housing: House Alcohol intake: never Patient Tobacco Use Status: Never used Tobacco e-Cigarette/Vaping Use: Never Used Second Hand Smoke Exposure: No service: Yes Current occupational status: retired Cognitive needs: No Hearing needs: Yes Vision needs: Yes Questionnaire Medicare Wellness Checkup [age] What gender do you identify with?: male During the past 4 weeks, how much have you been bothered by emotional problems such as feeling anxious, depressed, irritable, sad or downhearted, and blue?: not at all During the past 4 weeks, has your physical & emotional health limited your so cial activities with family, friends, neighbors, or groups?: not at all During the past 4 weeks, how much bodily pain have you generally had?: moderate pain During the past 4 weeks, was someone available to help you if you needed & wanted help?: yes, as much as I wanted During the past 4 weeks, what was the hardest physical activity you could do for at least 2 minutes?: very heavy Can you get to places out of walking distance without help? (For eg., can you travel alone on buses, taxis or drive your car?): Yes Can you go shopping for groceries or clothes without someone's help?: Yes Can you prepare your own meals?: Yes Can you do your housework without help?: Yes Because of any health problems, do you need the help of another person with your personal care needs such as eating, bathing, dressing or getting around the house?: No Can you handle your own money without help?: Yes During the past 4 weeks, how would you rate your health in general?: excellent During the past 4 weeks how have things been going for you?: very well; could hardly better Are you having difficulties driving your car?: no Do you always fasten your seat belt when you are in a car?: yes, usually During past 4 weeks, have you been bothered by the following: never: Falling or dizzy when standing up, Sexual problems?, Trouble eating well?, Teeth or denture problems?, Problems using the telephone? and Tiredness or fatigue? Have you fallen 2 or more times in the past year?: No Are you afraid of falling?: No Are you a smoker?: no During the past 4 weeks, how many drinks of wine, beer, or other alcoholic beverages did you have?: no alcohol at all Do you exercise for about 20 minutes 3 or more times a week?: yes, most of the time Have you been given information to help with the following?: yes: Hazards in your house that might hurt you? and yes: Keeping track of your medications? How often do you have trouble taking medicines the way you have been told to take them?: I always take medicine as prescribed How confident are you that you can control & manage most of your health p roblems?: very confident What is your race?: White Mini Mental State Exam (MMSE) Orientation What is the (year) (season) (date) (day) (month)?: year, season, date, day and month Where are we (state) (county) (town or city) (hospital) (floor)?: state, county, town or city, hospital/clinic and floor Registration Name of 3 unrelated objects clearly and slowly, then ask patient to repeat all 3 of them. (1st repeat determines score. Make sure they can repeat all three): object 1, object 2 and object 3 Attention & Calculation (CHOOSE ONE) Spell WORLD backwards (DLROW): 5 letters Recall Ask patient to repeat the 3 items from question #3.: object 1, object 2 and object 3 Language Show patient a wristwatch & ask what it is. Repeat for pencil.: watch and pencil Ask the patient to repeat the phrase 'No ifs, ands, or buts' after you.: correct Ask the patient to 'take a piece of paper with their right hand' 'fold paper in half' 'place paper on floor': take paper in right hand, fold paper in half and place paper on floor Print the sentence 'CLOSE YOUR EYES' on a piece. If patient actually closes eyes then score.: followed written direction Give patient a blank piece of paper & ask to write a sentence. Score if it contains a noun & verb.: sentence contains subject and verb Score Score: 29 Activity of Daily Living Bathing - sponge bath, tub bath or shower: receives no assistance (gets in/out by self, if usual bathing means Dressing - getting clothes from closets & drawers, including inner/outer garments & fasteners.: gets clothes & gets completely dressed without help Toileting - going to the 'toilet room' for urine/bowel elimination & cleaning self/arranging clothes: goes to toilet room, cleans self, arranges clothes without help Transfer: moves in & out of bed and chair without help (may use support object) Continence: controls urination/bowel movements completely by self Feeding: feeds self without help Total Score: 0 Information obtained from: patient Using telephone: independent Traveling: independent Shopping: independent Preparing meals: independent Housework: independent Taking medicine: independent Managing money: independent PHQ-9 Over the last 2 weeks, how often have you been bothered by any of the following problems? 1. Little interest or pleasure in doing things: not at all 2. Feeling down, depressed, or hopeless: not at all 3. Trouble falling or staying asleep, or sleeping too much: not at all 4. Feeling tired or having little energy: not at all 5. Poor appetite or overeating: not at all 6. Feeling bad about yourself - or that you are a failure or have let yourself or your family down: not at all 7. Trouble concentrating on things, such as reading the newspaper or watching television: not at all 8. Moving or speaking so slowly that other people could have noticed. Or the opposite - being so fidgety or restless that you have been moving around a lot more than usual: not at all 9. Thoughts that you would be better off or of hurting yourself in some way: not at all Total score: 0 Depression Screening Interpretation: Negative Depression Screening Done: Yes Source: Developed by Drs. Fidencio Carl, Loren Quintanilla, Shawn Khan and colleagues, with an educational alyssia from [employer]. Review of Systems Const All systems reviewed & are unremarkable except as noted in HPI and below Reports no additional complaints Eyes Reports no additional complaints ENT Reports no additional complaints Card Reports no additional complaints Resp Reports no additional complaints GI Reports no additional complaints Reports no additional complaints Musc Reports no additional complaints Physical Exam Vital Signs: Last Vital Signs Pulse 78 03/27/24 12:03 BP 106/66 03/27/24 12:03 Pulse Ox 95 03/27/24 12:03 Oxygen Delivery Method Room Air 03/27/24 12:03 BMI result Body Mass Index 29.9 Const General: no acute distress HEENT Head: Yes normal to inspection Neck Neck: Yes no meningeal signs and Yes supple Resp Effort & Inspection: normal respiratory effort Auscultation: clear to auscultation bilaterally Cardio Rhythm: regular rhythm Heart sounds: S1 normal heart sound present and S2 normal heart sound present GI Inspection: Yes normal to inspection Palpation (GI): Soft to palpation Percussion: Yes normal to percussion Auscultation: normal bowel sounds Neuro General: no meningeal signs Extrem General: Yes no clubbing, cyanosis or edema Assessment & Plan Assessment & Plan (1) Hyperlipidemia: Code(s): E78.5 - Hyperlipidemia, unspecified Plan: Continue statin (2) HTN (hypertension): Code(s): I10 - Essential (primary) hypertension Plan: Continue current medications (3) DM type 2 (diabetes mellitus, type 2): Code(s): E11.9 - Type 2 diabetes mellitus without complications Plan: A1c is up to 7.7, ADA diet increase exercise weight loss discussed with the patient he will continue 0.5 mg of Ozempic weekly with metformin and glipizide and return in 3 months with a fasting labs before (4) Annual physical exam: Code(s): Z00.00 - Encounter for general adult medical examination without abnormal findings Plan: Well-balanced diet regular exercise weight loss discussed with the patient Orders: Orders Comprehensive [place]. Panel Fast 3 Months E11.9 - Type 2 diabetes mellitus without complications, E78.5 - Hyperlipidemia, unspecified, I10 - Essential (primary) hypertension Hemoglobin A1c 3 Months E11.9 - Type 2 diabetes mellitus without complications, E78.5 - Hyperlipidemia, unspecified, I10 - Essential (primary) hypertension Medications: Refilled semaglutide (Ozempic) 0.5 mg (0.736 mL) subcut QWEEK 9 mL 2RF Quality Reporting (2019) Depression/Bipolar (159/160/161/177) PHQ-9: Total score: 0 Coding Level of Care Code Medicare Subsequent (G0439) Diagnoses Hyperlipidemia E78.5 HTN (hypertension) I10 DM type 2 (diabetes mellitus, type 2) E11.9 Annual physical exam Z00.00 CPT Codes Advance Care Planning - Advance Care Planning discussion: On file, no changes ([id number]) Advance Care Planning - Time spent: 1-15 minutes, on File ([id number]) Advance Care Planning Advance Care Planning discussion: On file, no changes Forms completed: Health Care Proxy Time spent: 1-15 minutes, on File
== END 2024-03-27 12:56 | disposition home or self-care (01) ==
PROVIDERS: PCP Internal Medicine; Visit Provider Internal Medicine
DX: Z00.00 Encounter for general adult medical examination without abnormal findings (principal); E11.9 Type 2 diabetes mellitus without complications; E78.5 Hyperlipidemia, unspecified; I10 Essential (primary) hypertension
CPT/HCPCS: 1123F; G0439

== ENCOUNTER 2024-06-25 08:12 | Outpatient (REF) | payer MEDICARE, SELFPAY ==
[2024-06-25 10:17] LABS: Estimated Average Glucose 143 mg/dL; Hemoglobin A1c % 6.6 % (<6.0)
[2024-06-25 10:24] LABS: Alanine Aminotransferase 35 U/L (0-40); Alkaline Phosphatase 67 U/L (39-117); Anion Gap 15 (12-20); Aspartate Amino Transferase 20 U/L (5-37); Bilirubin Total 0.4 mg/dL (0.0-1.0); Blood Urea Nitrogen 13 mg/dL (9-16); Carbon Dioxide 29 mmol/L (22-29); Chloride 99 mmol/L (96-108); Estimated Glomerular Filt Rate > 60; Glucose Fasting 141 mg/dL (60-99); Potassium 4.5 mmol/L (3.3-5.1); Sodium 138 mmol/L (135-145); Total Protein 6.7 g/dL (6.5-8.0)
== END 2024-06-25 08:13 | disposition home or self-care (01) ==
LOC: HO.HMGCLDS 08:12
PROVIDERS: PCP Internal Medicine; Visit Provider Internal Medicine
DX: E78.5 Hyperlipidemia, unspecified (principal); I10 Essential (primary) hypertension; E11.9 Type 2 diabetes mellitus without complications
CPT/HCPCS: 36415; 80053; 83036

== ENCOUNTER 2024-07-01 09:18 | Outpatient (AMB) | payer MEDICARE, SELFPAY ==
[2024-07-01 09:20] VITALS: BP 130/80; PULSE 89; O2SAT 96; BMI 29.4
--- NOTE | 2024-07-01 09:20 | A.OFFPC_ITS ---
Vital Signs 07/01/24 09:20 Height 6 ft 1 in Weight 223 lb BMI 29.4 BP 130/80 Blood Pressure Location Lt brachial Position Sitting Pulse 89 Pulse Source Pulse Oximeter Pulse Oximetry (%) 96 Oxygen Delivery Method Room Air Intake Visit Reasons: 3 month follow up - see comment Allergies amoxicillin [Augmentin] Allergy (Unknown, Verified 07/01/24 09:21) diarrhea clavulanic acid [Augmentin] Allergy (Unknown, Verified 07/01/24 09:21) diarrhea Sulfa (Sulfonamide Antibiotics) [SULFA(SULFONAMIDE ANTIBIOTICS)] Allergy (Unknown, Verified 07/01/24 09:21) Swelling Medication List - Last Reconciled 07/01/24 by Kyung Soto MD apixaban (Eliquis) 5 mg PO BID azelastine 1 spray intranasal BID blood sugar diagnostic QD carvedilol 25 mg PO BID clotrimazole 1% appl topical diltiazem HCl CD 240 mg PO DAILY duloxetine 60 mg PO DAILY empagliflozin (Jardiance) 25 mg PO DAILY gabapentin 1,200 mg (2 x 600 mg) PO BID glipizide 5 mg PO .QD ketoconazole 2% 1 appl topical DAILY lancets (OneTouch UltraSoft Lancets) qd lisinopril 40 mg PO DAILY metformin 1,000 mg PO BID omeprazole 40 mg PO DAILY Ozempic (semaglutide) 1 mg (0.75 mL) subcut QWEEK NS pravastatin 40 mg PO DAILY Tobacco use date assessed: 07/01/24 Dental Screening Dental Screen Date: 01/07/24 HPI 3 month follow up - see comment HPI Details Patient presents for the follow-up of hypertension hyperlipidemia type 2 diabetes chronic anxiety [facility] Medical History Annual physical exam Hyponatremia Anxiety Hyperkalemia Hyperlipidemia HTN (hypertension) DM type 2 (diabetes mellitus, type 2) Surgical History History of laparoscopic cholecystectomy History of cataract surgery Family History Father No problems noted. Mother Mental health disorder Son No problems noted. Daughter No problems noted. Daughter No problems noted. Daughter No problems noted. Daughter No problems noted. Social History Housing: House Alcohol intake: never Patient Tobacco Use Status: Never used Tobacco e-Cigarette/Vaping Use: Never Used Second Hand Smoke Exposure: No service: Yes Current occupational status: retired Cognitive needs: No Hearing needs: Yes Vision needs: Yes Questionnaire PHQ-9 Over the last 2 weeks, how often have you been bothered by any of the following problems? 1. Little interest or pleasure in doing things: not at all 2. Feeling down, depressed, or hopeless: not at all 3. Trouble falling or staying asleep, or sleeping too much: not at all 4. Feeling tired or having little energy: not at all 5. Poor appetite or overeating: not at all 6. Feeling bad about yourself - or that you are a failure or have let yourself or your family down: not at all 7. Trouble concentrating on things, such as reading the newspaper or watching television: not at all 8. Moving or speaking so slowly that other people could have noticed. Or the opposite - being so fidgety or restless that you have been moving around a lot more than usual: not at all 9. Thoughts that you would be better off or of hurting yourself in some way: not at all Total score: 0 Depression Screening Interpretation: Negative Depression Screening Done: Yes 45687 - PHQ-9 Billing: Yes Source: Developed by Drs. Fidencio Carl, Loren Quintanilla, Shawn Khan and colleagues, with an educational alyssia from [employer]. Thrive Questionnaire Date Thrive assessed: 01/07/24 I am a: Patient What is your living situation today?: I have a steady place to live Within the past 12 months, did the food you bought not last and you didn't have the money to get more?: Never true Within the past 12 months, did you worry whether your food would run out before you got money to buy more?: Never true Do you have trouble paying for medicines?: No Do you have trouble getting transportation to medical appointments?: No Do you have trouble paying your heating and electricity bill?: No Do you have trouble taking care of your child, family member or friend?: No Do you have trouble with day-to-day activities such as bathing, preparing meals, shopping, managing finances, etc.?: No Are you currently unemployed and looking for a job?: No Are you interested in more education?: No Please select the resources that you would like help with: None Currently or been in a relationship where the following occur: No concerns reported THRIVE Score: 0 AUDIT C Alcohol Use Questionnaire (AUDIT-C) 1. How often do you have a drink containing alcohol?: Never Total Score: 0 SELENA-7 AMB Questionnaire SELENA-7 Date SELENA - 7 assessed: 07/01/24 Feeling nervous, anxious, or on edge: 0 = Not at all Not being able to stop or control worryin = Not at all Worrying too much about different things: 0 = Not at all Trouble relaxin = Not at all Being so restless that it is hard to sit still: 0 = Not at all Becoming easily annoyed or irritable: 0 = Not at all Feeling afraid as if something awful might happen: 0 = Not at all Total SELENA-7 score (0-4 normal; 5-9 mild; 10-14 moderate; 15-21 severe): 0 Source: Developed by Drs. Fidencio Carl, Loren Quintanilla, Shawn Khan and colleagues, with an educational alyssia from [employer]. SELENA-7 Assessment Billing SELENA-7 Assessment Tool: SELENA-7 Assessment 90377 Review of Systems Const All systems reviewed & are unremarkable except as noted in HPI and below Eyes Reports no additional complaints ENT Reports no additional complaints Card Reports no additional complaints Resp Reports no additional complaints GI Reports no additional complaints Reports no additional complaints Physical exam (Primary Care) Vital Signs: Last Vital Signs Pulse 89 07/01/24 09:20 BP 130/80 07/01/24 09:20 Pulse Ox 96 07/01/24 09:20 Oxygen Delivery Method Room Air 07/01/24 09:20 BMI result Body Mass Index 29.4 Tobacco/Smoking Status: Tobacco use Status Tobacco use date assessed 07/01/24 07/01/24 09:28 Patient Tobacco Use Status Never used Tobacco 07/01/24 09:28 e-Cigarette/Vaping Use Never Used 07/01/24 09:28 PHQ-9: PHQ-9 Score PHQ-9: Total score 0 07/01/24 09:28 Depression Screening Interpretation: Negative Thrive Assessment: Date of Thrive Assessment Date Thrive assessed 01/07/24 07/01/24 09:28 Currently or been in a relationship where the following occur: No concerns reported Const General: no acute distress HENMT Head: Yes normal to inspection Face and sinus: Yes normal facial exam Mouth: Normal oral and palatal mucosa present Throat: Yes posterior oropharynx normal Eyes General: appearance normal, both eyes and all related structures Neck Neck: Yes supple Resp Effort & Inspection: normal respiratory effort Auscultation: clear to auscultation bilaterally Cardio Rhythm: regular rhythm Heart sounds: S1 normal heart sound present and S2 normal heart sound present GI Inspection: Yes normal to inspection Palpation (GI): Soft to palpation Percussion: Yes normal to percussion Auscultation: normal bowel sounds Assessment and Plan Assessment & Plan (1) Anxiety: Code(s): F41.9 - Anxiety disorder, unspecified Plan: Continue current medications (2) Hyperlipidemia: Code(s): E78.5 - Hyperlipidemia, unspecified Plan: Continue statin (3) HTN (hypertension): Code(s): I10 - Essential (primary) hypertension Plan: Continue current medications (4) DM type 2 (diabetes mellitus, type 2): Code(s): E11.9 - Type 2 diabetes mellitus without complications Plan: A1c is down to 6.6 from 7.7, increase Ozempic to 1 mg weekly decrease glipizide to 5 mg daily and patient was advised to monitor blood glucose for hypoglycemia, follow-up in 3 months Orders: Orders Complete Blood Count Auto Diff 3 Months E11.9 - Type 2 diabetes mellitus without complications, E78.5 - Hyperlipidemia, unspecified, I10 - Essential (primary) hypertension Comprehensive [place]. Panel Fast 3 Months E11.9 - Type 2 diabetes mellitus without complications, E78.5 - Hyperlipidemia, unspecified, I10 - Essential (primary) hypertension Lipid Panel 3 Months E11.9 - Type 2 diabetes mellitus without complications, E78.5 - Hyperlipidemia, unspecified, I10 - Essential (primary) hypertension Hemoglobin A1c 3 Months E11.9 - Type 2 diabetes mellitus without complications, E78.5 - Hyperlipidemia, unspecified, I10 - Essential (primary) hypertension Microalbumin, Random (w Creat) 3 Months E11.9 - Type 2 diabetes mellitus without complications, E78.5 - Hyperlipidemia, unspecified, I10 - Essential (primary) hypertension Medications: New Ozempic (semaglutide) 1 mg (0.75 mL) subcut QWEEK 9 mL 1RF NS Changed From glipizide 5 mg PO BID 180 tabs 3RF To glipizide 5 mg PO .QD 90 tabs 3RF Discontinued semaglutide (Ozempic) Discontinued Reason: Doctor's Order 0.5 mg (0.736 mL) subcut QWEEK 9 mL 2RF Coding Level of Care Code Est Pt Level 4 (46776) Diagnoses Anxiety F41.9 Hyperlipidemia E78.5 HTN (hypertension) I10 DM type 2 (diabetes mellitus, type 2) E11.9 Additional Codes SELENA-7 Assessment Billing - SELENA-7 Assessment Tool: SELENA-7 Assessment 73582 ( [id number])
== END 2024-07-01 09:44 | disposition home or self-care (01) ==
PROVIDERS: PCP Internal Medicine; Visit Provider Internal Medicine
DX: F41.9 Anxiety disorder, unspecified (principal); E78.5 Hyperlipidemia, unspecified; I10 Essential (primary) hypertension; E11.9 Type 2 diabetes mellitus without complications
CPT/HCPCS: 96127; 99214

== ENCOUNTER 2024-10-03 07:58 | Outpatient (REF) | payer MEDICARE, SELFPAY ==
--- OUTSIDE RECORDS SUMMARY | 2024-10-03 08:01 | XMS_ITS ---
Author Organization [facility] Address [address] [facility] [address] Care Team Providers Care Binder Stripper Hand Name Role Phone Kyung Soto MD Primary Care Provider UnavailJacek Sebastian Unavailable [phone] Allergies Allergen (clinical drug ingredient) Drug/Non Drug Allergy documented on EMR Reaction Allergy Type Onset Date Status Substance with sulfonamide structure and antibacterial mechanism of action (substance) Sulfa Antibiotics rash Drug Allergy Active REASON FOR VISIT At Risk Footcare Medications Medication SIG (Take, Route, Frequency, Duration) Notes Start Date End Date Status Multivitamins as directed Orally Active metFORMIN HCl 1000 MG Orally Twice a day Active Lisinopril 40 mg Act oskar Pravastatin Sodium 40 mg Active Omeprazole 40 mg Act oskar Eliquis 5 MG Orally Active dilTIAZem HCl Active glipiZIDE ER 5 MG 1 tablet Orally Once a day Active Gabapentin 600 mg 2 tabs Twice a day Active Carvedilol 25 MG Orally twice daily Active DULoxetine HCl 60 MG 1 capsule Orally On ce a day Active Ozempic Active Naproxen 500 MG TAKE 1 TABLET BY MOUTH TWICE A DAY WITH FOOD Oral for 30 Not-Taking Jardiance Active hydroCHLOROthiazide 25 mg Not-Taking Astelin 137 MCG/SPRAY 1 puff in each nostril Nasally Twice a day for 30 day(s) Not-Taking busPIRone HCl Not-Ta munir clonazePAM 0.5 MG 1 tablet Orally twic e a day Not-Taking Cymbalta 60 mg 1 capsule Orally onc e a day for 30 day(s) Not-Taking glipiZIDE 5 MG 1 tablet Orally Once a day Not-Taking Fish Oil 1 capsule Orally Onc e a day for 30 day(s) Active Extra Depth Orthopedic Shoes (1 Pair) with Customized Heat Molded Multidensity Innersoles (3 Pair) as directed Dx: NIDDM/Polyneuropathy (E11.42), Hammertoe Foot Deformity (M20.41,M20.42), Preulcerative Skin Lesion(s) (L85.1 09/10/2023 Active Azelastine HCl Not-T aking Trulicity Not-Taking Clotrimazole 1 % 1 application Externally Twice a day for 30 days 04/26/2023 Active Ammonium Lactate 12 % 1 application to affected area Externally to feet Twice a day for 28 Active Social History Tobacco Use: Social History Observation Description Date Details (start date - stop date) Never Smoker NA - NA Tobacco Use/Smoking Question Answer Notes Are you a: nonsmoker Additional Findings: Tobacco Non-User Current no n-smoker Alcohol Screen Question Answer Notes Did you have a drink containing alcohol in the p ast year? No Points 0 Interpretation Negative Tobacco use other than smoking: Question Answer Notes Are you an other tobacco user? No Vital Signs Height 6 ft 1 in in 04/14/2024 Weight 221 lbs 04/14/2024 BMI 29.15 kg/m2 04/14/2024 Procedures Procedure Date Ordered Date Performed Result Body Sit e 68618-ABSIWFY NAIL, 6 OR MORE 04/14/2024 N/A 57009-WTUS SKIN LESIONS, OVER 4 04/14/2024 N/A Encounters Encounter Location Date Provider Diagnosis [facility] [address] [address] 04/14/2024 Jacek Parks Type 2 diabetes mellitus with diabetic polyneuropathy E11.42 and Tinea unguium B35.1 Assessments Encounter Date Diagnosis (ICD Code) Assessment Notes Treatment Notes Treatment Clinical Notes Section Notes 04/14/2024 Type 2 diabetes mellitus with diabetic polyneuropathy (ICD-10 - E11.42) 04/14/2024 Tinea unguium (ICD-10 - B35.1) Plan Of Treatment Pending Test Test Name Order Date 89261-[id number] NAIL, 6 OR MORE 04/14/2024 71511-MDYL SKIN LESIONS, OVER 4 04/14/20 Next Appt Details Follow Up: prn, Reason: Provider Name:Jacek Garcia Charly , 12/31/2024 08:45:00 AM, [address] , [address], [place], [address], Procedure Notes * Category Sub-Category Detail Notes Debride Nail 6-10 Nail debridement Nail debridem ent performed extensively to reduce/remove overall nail length, girth, thickness, subungual debris, and necrotic tissue, by manual and electrical means through the use of a nail nipper and/or dremel, to more viable healthy nail plate or bed tissue 1-5. Silver nitrate used for any petechial bleeding as necessary. Patient chooses, no pharmaceutical tx (38489) Keratoma Treatment Parring or Cutting o f Benign Hyperkeratotic Lesion(s) 48614 ( >4 Lesions) - The Benign hyperkeratotic lesions, as described above were pared, and/or cut utilizing a sterile #15 blade, tissue nippers, and/or dremel Progress Notes * Gerardo WEI GDOB:1945 (78 yo M)Acc No.[id number]:04/14/2024 Progress Note Patient:?Eriberto Gerardo Belkis Provider:?Jacek Parks DPM :1945???Age:78 Y???Sex:Male Patel e:04/14/2024 Address:[address] [place], [place] [address] Pcp:Kyung Soto MD Subjective: * Chief Complaints: * ???At Risk Footcare * HPI: ???At Risk footcare:?Pt States Last PCP Visit:?Date?01/17/2024 * ROS:?General/Constitutional:?Nausea?denies.?Vomiting?denies.?Hunger Thirst?denies.?Loss appetite?denies.?Chills?denies.?Fatigue?denies.?Fever?denies.?Night Sweats?denies.?Unexplained weight loss?denies.?Ophthalmologic:?Blurred vision?denies.?Red eye?denies.?HEENTM:?Dentures?denies.?Dizziness?denies.?Glasses/contacts?admits.?Retinopathy?de nies.?Blurred/double vision?denies.?TMJ?denies.?Discharge/drainage?denies.?Implants?denies.?Hard of hearing admits.?Difficulty chewing/swallowing/speaking?denies.?Nose bleeds?denies.?Sore mouth?denies.?Swollen glands?denies.?Respiratory:?On Oxygen?denies.?Pneumonia/pleurisy?denies.?Bronchitis?denies.?Emphysema?denies.?C oughing?denies.?Cough blood?denies.?Shortness of breath?denies.?Wheezing?denies.?Cardiovascular:?Pacemaker?denies.?MVP?denies.?WPW?denies.?CHF?denies.?Heart attack?denies.?Septal defect?denies.?Rapid beat?denies.?Chest pain ?denies.?Atrial Fib.?denies.?Murmur/Palpitations?denies.?Gastrointestinal:?Hemorrhoids?denies.?Stomach/Abdominal pain?denies.?Dark blood stool?denies.?Irritable bowel ?denies.?Constipation?denies.?Diarrhea?denies.?Vomiting?denies.?Hematology:?Swelling?denies.?Bruising?admits, on anticoagulants.?Bleeding problem?admits, on anticoagulants.?Genitourinary:?Blood urine?denies.?Frequent/Painfu/urination/bladder control?denies.?Kidney stones?denies.?Infection (UTI)?denies.?Nephropathy?denies.?Musculoskeletal:?Hammertoes?admits.?Bunions?admits.?Scoliosis/kyphosis?denies.?Muscle cramps / walking?denies.?Generalized aches and pains?denies.?Weakness?denies.?Integ.:?[place]?denies.?Scars?denies.?Corns/calluses?admits.?Ingrown nails?admits.?Painful nails?denies.?Rashes?denies.?Neurologic:?Difficulty sleeping?denies.?Bipolar?denies.?Brain disorder?denies.?Balance trouble?denies.?Confusion?denies.?Fainting/blackouts?denies.?Headache?denies.?Tr emors?denies.? * Medical History:? * Surgical History:?elbow sx 1 984prostate surgery 06/2012eye surgery 12/07/2015gall bladder 06/30/2016left knee replacement 12/28/2016skin cancer, cheek * Hospitalization/Major Diagno stic Procedure:?[facility]- Dehydration and A-fib 01/2018 * Family History:?Mother: dece ased, diagnosed with Unspecified heart disease.?Father: .?Daughter(s): alive.?Son(s): alive.?Spouse: alive.?Paternal Grand Mother: diagnosed with Diabetic - NIDDM, Other malignant neoplasm of unspecified site.?Paternal Grand Father: diagnosed with Family history of arthritis.?1 son(s) , 4 daughter(s) . .? * Social History:?Tobacco Use:?Tobacco Use/Smoking?Are you a:?nonsmoker ?Additional Findings: Tobacco Non-User?Current non-smoker ?Tobacco use other than smoking?Are you an other tobacco user??No ???Drugs/Alcohol:?Drugs?Have you used drugs other than those for medical reasons in the past 12 months??No ?Alcohol Screen?Did you have a drink containing alcohol in the past year??No ?Points?0 ?Interpretation?Negative ???Miscellaneous:?Caffeine: yes, frequency:, 2-3 cups per day. ?Children: yes, 5. ?no Exercise. ?Marital status: . ?Occupation: Retired. * Medications:?TakingOzempic D ULoxetine HCl 60 MG Capsule Delayed Release Particles 1 capsule Orally Once a dayJardiance Carvedilol 25 MG Tablet Orally twice dailydilTIAZem HCl Eliquis 5 MG Tablet Orally Gabapentin 600 mg 2 tabs Twice a dayglipiZIDE ER 5 MG Tablet Extended Release 24 Hour 1 tablet Orally Once a dayLisinopril 40 mg metFORMIN HCl 1000 MG Tablet Orally Twice a dayMultivitamins Tablet as directed Orally Omeprazole 40 mg Pravastatin Sodium 40 mg Ammonium Lactate 12 % Cream 1 application to affected area Externally to feet Twice a dayClotrimazole 1 % Cream 1 application Externally Twice a dayExtra Depth Orthopedic Shoes (1 Pair) with Customized Heat Molded Multidensity Innersoles (3 Pair) as directed Dx: NIDDM/Polyneuropathy (E11.42), Hammertoe Foot Deformity (M20.41,M20.42), Preulcerative Skin Lesion(s) (L85.1Fish Oil Capsule 1 capsule Orally Once a dayTaking Ozempic Taking DULoxetine HCl 60 MG Capsule Delayed Release Particles 1 capsule Orally Once a dayTaking Jardiance Taking Carvedilol 25 MG Tablet Orally twice dailyTaking dilTIAZem HCl Taking Eliquis 5 MG Tablet Orally Taking Gabapentin 600 mg 2 tabs Twice a dayTaking glipiZIDE ER 5 MG Tablet Extended Release 24 Hour 1 tablet Orally Once a dayTaking Lisinopril 40 mg Taking metFORMIN HCl 1000 MG Tablet Orally Twice a dayTaking Multivitamins Tablet as directed Orally Taking Omeprazole 40 mg Taking Pravastatin Sodium 40 mg Taking Ammonium Lactate 12 % Cream 1 application to affected area Externally to feet Twice a dayTaking Clotrimazole 1 % Cream 1 application Externally Twice a dayTaking Extra Depth Orthopedic Shoes (1 Pair) with Customized Heat Molded Multidensity Innersoles (3 Pair) as directed Dx: NIDDM/Polyneuropathy (E11.42), Hammertoe Foot Deformity (M20.41,M20.42), Preulcerative Skin Lesion(s) (L85.1Taking Fish Oil Capsule 1 capsule Orally Once a dayNot-Taking/PRNTrulicity Azelastine HCl clonazePAM 0.5 MG Tablet 1 tablet Orally twice a daybusPIRone HCl Astelin 137 MCG/SPRAY Solution 1 puff in each nostril Nasally Twice a dayglipiZIDE 5 MG Tablet 1 tablet Orally Once a dayCymbalta 60 mg Capsule Delayed Release Particles 1 capsule Orally once a dayhydroCHLOROthiazide 25 mg Naproxen 500 MG Tablet TAKE 1 TABLET BY MOUTH TWICE A DAY WITH FOOD Oral Medication List reviewed and reconciled with the patientNot-Taking/PRN Trulicity Not-Taking/PRN Azelastine HCl Not-Taking/PRN clonazePAM 0.5 MG Tablet 1 tablet Orally twice a dayNot-Taking/PRN busPIRone HCl Not-Taking/PRN Astelin 137 MCG/SPRAY Solution 1 puff in each nostril Nasally Twice a dayNot-Taking/PRN glipiZIDE 5 MG Tablet 1 tablet Orally Once a dayNot-Taking/PRN Cymbalta 60 mg Capsule Delayed Release Particles 1 capsule Orally once a dayNot-Taking/PRN hydroCHLOROthiazide 25 mg Not-Taking/PRN Naproxen 500 MG Tablet TAKE 1 TABLET BY MOUTH TWICE A DAY WITH FOOD Oral Medication List reviewed and reconciled with the patient * Allergies:?Sulfa Antibiotics : rashyes[Allergies Verified] Objective: * Vitals:?Ht: 6 ft 1 in, Wt: 2 21, BMI: 29.15, Shoe size: 13, BS: did not test, Wt- k.24 kg. * ???Past Orders: ???Lab:HEMOGLOBIN A1C (GLYCO HEMOGLOBIN) (Order Date - 01/30/2024) (Collection Date - 01/30/2024) ? Value Reference Range ?HEMOGLOBIN A1C % (HH) 7.4 * Examination: ???Neurological: ?SENSORY:?Neurological exam demonstrates, reduced light touch sensation, reduced sharp/dull discrimination , plantar aspects, B/L, 5.07 monofilament test performed at plantar aspects of 5 varied sites per foot shows sensation, reduced, B/L.?Nails: ?NAILS are:?Elongated, overgrown, dystrophic, lytic, greater than 3mm thick, discolored and friable with crumbly malodorous subungual debris, 1-5 B/L.?Dermatologic: ?SKIN FINDINGS:?Skin exam reveals Keratotic lesion(s) located at, Medial, IPJ, TA,?Medial, IPJ, T5, SUB MTH (s), 1, B/L , SUB MTH (s), 2, B/L, SUB MTH (s), 3, B/L, SUB MTH (s), 5, B/L , Heel, B/L.? Assessment: * Assessment: 1.?Type 2 diabetes mellitus with diabetic polyneuropathy - E11.42 (Primary)?2.?Tinea unguium - B35.1? Plan: * Treatment: * Procedures:?Debride Nail 6-10:?Nail debridement?Nail debridement performed extensively to reduce/remove overall nail length, girth, thickness, subungual debris, and necrotic tissue, by manual and electrical means through the use of a nail nipper and/or dremel, to more viable healthy nail plate or bed tissue 1-5. Silver nitrate used for any petechial bleeding as necessary. Patient chooses, no pharmaceutical tx (92226).?Keratoma Treatment:?Parring or Cutting of Benign Hyperkeratotic Lesion(s)?05583 ( >4 Lesions) - The Benign hyperkeratotic lesions, as described above were pared, and/or cut utilizing a sterile #15 blade, tissue nippers, and/or dremel.? * Procedure Codes:?68322 DEBRI DE NAIL, 6 OR MORE, Modifiers: XS 99351 TRIM SKIN LESIONS, OVER 4, Modifiers: XS * Follow Up:?prn * Images: * Sign off status: Completed Addendum: * ? true * Provider:?Jacek Parks DPM Date:?2023 Generated for Дмитрий pace/De/Agustin on:?10/03/2024 08:01 AM EST History and Physical Notes * HPI (History of Present Illness) Category Sub-Category Detail Notes Category Not es At Risk footcare Pt States Last PCP Visit: Date: 4 Examination Category Sub-Category Detail Notes Category Not es Neurological SENSORY: Neurological exa m demonstrates, reduced light touch sensation, reduced sharp/dull discrimination , plantar aspects, B/L, 5.07 monofilament test performed at plantar aspects of 5 varied sites per foot shows sensation, reduced, B/L Dermatologic SKIN FINDINGS: Skin exam reveal s Keratotic lesion(s) located at, Medial, IPJ, TA, Medial, IPJ, T5, SUB MTH (s), 1, B/L , SUB MTH (s), 2, B/L, SUB MTH (s), 3, B/L, SUB MTH (s), 5, B/L , Heel, B/L Nails NAILS are: Elongated, overg rown, dystrophic, lytic, greater than 3mm thick, discolored and friable with crumbly malodorous subungual debris, 1-5 B/L
--- OUTSIDE RECORDS SUMMARY | 2024-10-03 08:01 | XMS_ITS ---
Author Organization [facility] Address [address] [facility] [place] [address] Care Team Providers Care Supervisor Case Loading Name Role Phone Kyung Soto MD Primary Care Provider Unavaila Jacek Otoole Unavailable [phone] Allergies Allergen (clinical drug ingredient) Drug/Non Drug Allergy documented on EMR Reaction Allergy Type Onset Date Status Substance with sulfonamide structure and antibacterial mechanism of action (substance) Sulfa Antibiotics rash Drug Allergy Active REASON FOR VISIT At Risk Footcare Medications Medication SIG (Take, Route, Frequency, Duration) Notes Start Date End Date Status Astelin 137 MCG/SPRAY 1 puff in each nostril Nasally Twice a day for 30 day(s) Not-Taking hydroCHLOROthiazide 25 mg Not-Taking Naproxen 500 MG TAKE 1 TABLET BY MOUTH TWICE A DAY WITH FOOD Oral for 30 Not-Taking glipiZIDE 5 MG 1 tablet Orally Once a day Not-Taking Cymbalta 60 mg 1 capsule Orally onc e a day for 30 day(s) Not-Taking Trulicity Not-Taking busPIRone HCl Not-Ta munir Azelastine HCl Not-T aking clonazePAM 0.5 MG 1 tablet Orally twic e a day Not-Taking Clotrimazole 1 % APPLY TO AFFECTED AREA TWICE A DAY 30 DAYS. MAX 45GM/30DAYS for 30 Active Ammonium Lactate 12 % 1 application to affected area Externally to feet Twice a day for 28 Active Extra Depth Orthopedic Shoes (1 Pair) with Customized Heat Molded Multidensity Innersoles (3 Pair) as directed Dx: NIDDM/Polyneuropathy (E11.42), Hammertoe Foot Deformity (M20.41,M20.42), Preulcerative Skin Lesion(s) (L85.1 09/10/2023 Active Omeprazole 40 mg Act oskar Pravastatin Sodium 40 mg Active Fish Oil 1 capsule Orally Onc e a day for 30 day(s) Active metFORMIN HCl 1000 MG Orally Twice a day Active Multivitamins as directed Orally Active glipiZIDE ER 5 MG 1 tablet Orally Once a day Active Lisinopril 40 mg Act oskar Gabapentin 600 mg 2 tabs Twice a day Active Jardiance Active Carvedilol 25 MG Orally twice daily Active DULoxetine HCl 60 MG 1 capsule Orally On ce a day Active dilTIAZem HCl Active Eliquis 5 MG Orally Active Ozempic Active Social History Tobacco Use: Social History [...] Signs Height 6 ft 1 in in 06/26/2024 Weight 223 lbs 06/26/2024 BMI 29.42 kg/m2 06/26/2024 Procedures Procedure Date Ordered Date Performed Result Body Sit e 65256-XVSTBFG NAIL, 6 OR MORE 06/26/2024 N/A 13218-SSCM SKIN LESIONS, OVER 4 06/26/2024 N/A Encounters Encounter Location Date Provider Diagnosis [facility] [address] [address] 06/26/2024 Jacek Parks Type 2 diabetes mellitus with diabetic polyneuropathy E11.42 and Tinea unguium B35.1 Assessments Encounter Date Diagnosis (ICD Code) Assessment Notes Treatment Notes Treatment Clinical Notes Section Notes 06/26/2024 Type 2 diabetes mellitus with diabetic polyneuropathy (ICD-10 - E11.42) 06/26/2024 Tinea unguium (ICD-10 - B35.1) Plan Of Treatment Pending Test Test Name Order Date 46513-OYTCBAI NAIL, 6 OR MORE 06/26/2024 23526-WFGT SKIN LESIONS, OVER 4 06/26/20 24 Next Appt Details Follow Up: prn, Reason: Provider Name:Jacek Garcia Charly , 12/31/2024 08:45:00 AM, [address] , [address], [place], [address], Procedure Notes * Category Sub-Category Detail Notes Debride Nail 6-10 Nail debridement Performance o f this nail treatment by a nonprofessional would put this patients foot and overall health at risk. Therefore, nail debridement was performed extensively to reduce/remove overall nail length, girth, thickness, subungual debris, and necrotic tissue, by manual and/or electrical means through the use of a nail nipper and/or dremel-type watch parts grinder, to a more viable healthy nail plate or bed tissue 6-10. Silver nitrate used for any petechial bleeding as necessary. Definitive antifungal treatment options have been reviewed and discussed with the patient. The patient chooses, no pharmaceutical tx - 85669 Keratoma Treatment Parring or Cutting o f Benign Hyperkeratotic Lesion(s) (-57) More than 4 Lesions - The Benign hyperkeratotic lesions, as described above were pared, and/or cut utilizing a sterile 15 blade, tissue nippers, and/or dremel - 25658 Progress Notes * Gerardo WEI GDOB:1945 (79 yo M)Acc No.[id number]:06/26/2024 Progress Note Patient:Gerardo Carrizales Provider:?Jacek Parks DPM :1945???Age:79 Y???Sex:Male Patel e:06/26/2024 Address:[facility] [address] [place], [place] Pcp:Kyung oSto MD Subjective: * Chief Complaints: * ???At [...] affected area Externally to feet Twice a dayExtra Depth Orthopedic Shoes (1 Pair) with Customized Heat Molded Multidensity Innersoles (3 Pair) as directed Dx: NIDDM/Polyneuropathy (E11.42), Hammertoe Foot Deformity (M20.41,M20.42), Preulcerative Skin Lesion(s) (L85.1Fish Oil Capsule 1 capsule Orally Once a dayClotrimazole 1 % Cream APPLY TO AFFECTED AREA TWICE A DAY 30 DAYS. MAX 45GM/30DAYS Taking Ozempic Taking DULoxetine HCl 60 MG Capsule [...] area Externally to feet Twice a dayTaking Extra Depth Orthopedic Shoes (1 Pair) with Customized Heat Molded Multidensity Innersoles (3 Pair) as directed Dx: NIDDM/Polyneuropathy (E11.42), Hammertoe Foot Deformity (M20.41,M20.42), Preulcerative Skin Lesion(s) (L85.1Taking Fish Oil Capsule 1 capsule Orally Once a dayTaking Clotrimazole 1 % Cream APPLY TO AFFECTED AREA TWICE A DAY 30 DAYS. MAX 45GM/30DAYS Not-Taking/PRNTrulicity Azelastine HCl clonazePAM 0.5 MG Tablet 1 [...] Vitals:?Ht: 6 ft 1 in, Wt: 2 23, BMI: 29.42, Shoe size: 13, BS: 110, Wt-k.15 kg. * ???Past Orders: ???Lab:HEMOGLOBIN A1C (GLYCO [...] Plan: * Treatment: * Procedures:?Debride Nail 6-10:?Nail debridement?Performance of this nail treatment by a nonprofessional would put this patients foot and overall health at risk. Therefore, nail debridement was performed extensively to reduce/remove overall nail length, girth, thickness, subungual debris, and necrotic tissue, by manual and/or electrical means through the use of a nail nipper and/or dremel-type watch parts grinder, to a more viable healthy nail plate or bed tissue 6-10. Silver nitrate used for any petechial bleeding as necessary. Definitive antifungal treatment options have been reviewed and discussed with the patient. The patient chooses, no pharmaceutical tx - 35411.?Keratoma Treatment:?Parring or Cutting of Benign Hyperkeratotic Lesion(s)?(-57) More than 4 Lesions - The Benign hyperkeratotic lesions, as described above were pared, and/or cut utilizing a sterile 15 blade, tissue nippers, and/or dremel - 14148.? * Procedure Codes:?03146 DEBRI DE NAIL, 6 OR MORE, Modifiers: XS 74419 TRIM SKIN LESIONS, OVER 4, Modifiers: XS * Follow Up:?prn * Images: * Sign off status: Completed true * Provider:?Jacek Parks DPM Date:?2023 Generated for Дмитрий pace/De/eTransmitting on:?10/03/2024 08:01 AM EST History and Physical [...]
--- OUTSIDE RECORDS SUMMARY | 2024-10-03 08:01 | XMS_ITS ---
[facility] Organization [facility] Address [address] [place] [address] Care Team Providers Care Librarian Helper Name Role Phone Kyung Soto MD Primary Care Provider Unavaila Jacek Otoole Unavailable [phone] Allergies Allergen (clinical drug ingredient) Drug/Non Drug Allergy documented on EMR Reaction Allergy Type Onset Date Status Substance with sulfonamide structure and antibacterial mechanism of action (substance) Sulfa Antibiotics rash Drug Allergy Active REASON FOR VISIT At Risk Footcare, Skin problem(s) Medications Medication SIG (Take, Route, Frequency, Duration) Notes Start Date End Date Status Ammonium Lactate 12 % 1 application Externally to affected areas of dry skin to feet except for between the toes Twice a day for 30 days Active hydroCHLOROthiazide 25 mg Not-Taking Naproxen 500 MG TAKE 1 TABLET BY MOUTH TWICE A DAY WITH FOOD Oral for 30 Not-Taking glipiZIDE 5 MG 1 tablet Orally Once a day Not-Taking Cymbalta 60 mg 1 capsule Orally onc e a day for 30 day(s) Not-Taking Trulicity Not-Taking Azelastine HCl Not-T aking busPIRone HCl Not-Ta munir Astelin 137 MCG/SPRAY 1 puff in each nostril Nasally Twice a day for 30 day(s) Not-Taking clonazePAM 0.5 MG 1 tablet Orally twic e a day Not-Taking Fish Oil 1 capsule Orally Onc e a day for 30 day(s) Active Clotrimazole 1 % APPLY TO AFFECTED AREA TWICE A DAY 30 DAYS. MAX 45GM/30DAYS for 30 Active Pravastatin Sodium 40 mg Active Extra Depth Orthopedic Shoes (1 Pair) with Customized Heat Molded Multidensity Innersoles (3 Pair) as directed Dx: NIDDM/Polyneuropathy (E11.42), Hammertoe Foot Deformity (M20.41,M20.42), Preulcerative Skin Lesion(s) (L85.1 09/10/2023 Active Omeprazole 40 mg Act oskar glipiZIDE ER 5 MG 1 tablet Orally Once a day Active Gabapentin 600 mg 2 tabs Twice a day Active Multivitamins as directed Orally Active Lisinopril 40 mg Act oskar metFORMIN HCl 1000 MG Orally Twice a day Active Eliquis 5 MG Orally Active Carvedilol 25 MG Orally twice daily Active dilTIAZem HCl Active DULoxetine HCl 60 MG 1 capsule Orally On ce a day Active Jardiance Active Ozempic Active Social History Tobacco Use: Social History Observation Description Date Details (start date - stop date) Never Smoker NA - NA Tobacco Use/Smoking Question Answer Notes Are you a: nonsmoker Additional Findings: Tobacco Non-User Current no n-smoker Tobacco use other than smoking: Question Answer Notes Are you an other tobacco user? No Vital Signs Height 6 ft 1 in in 09/25/2024 Weight 212 lbs 09/25/2024 BMI 27.97 kg/m2 09/25/2024 Blood pressure systolic 118 mm Hg 09/25/20 24 Blood pressure diastolic 78 mm Hg 024 Procedures Procedure Date Ordered Date Performed Result Body Sit e 07875-XWMWSGH NAIL, 6 OR MORE 09/25/2024 N/A 01887-FBCF SKIN LESIONS, OVER 4 09/25/2024 N/A Encounters Encounter Location Date Provider Diagnosis [facility] [address] [address] 09/25/2024 Jacek Parks Type 2 diabetes mellitus with diabetic polyneuropathy E11.42 ; Tinea unguium B35.1 and Xerosis of skin L85.3 Assessments Encounter Date Diagnosis (ICD Code) Assessment Notes Treatment Notes Treatment Clinical Notes Section Notes 09/25/2024 Type 2 diabetes mellitus with diabetic polyneuropathy (ICD-10 - E11.42) 09/25/2024 Tinea unguium (ICD-10 - B35.1) 09/25/2024 Xerosis of skin (ICD-10 - L85.3) Plan Of Treatment Medication Medication Name Sig Start Date Stop Date Notes Ammonium Lactate 12 % 1 application Exte rnally to affected areas of dry skin to feet except for between the toes Twice a day for 30 days Pending Test Test Name Order Date 10522-CIZFVXY NAIL, 6 OR MORE 09/25/2024 70522-MDVE SKIN LESIONS, OVER 4 09/25/20 24 Next Appt Details Follow Up: prn, Reason: Provider Name:Jacek Parks , 12/31/2024 08:45:00 AM, [address], [place], [address], Procedure Notes * Category Sub-Category Detail Notes Debride Nail 6-10 Nail debridement Performance o f this nail treatment by a nonprofessional would put this patients foot and overall health at risk. Therefore, debridement to affected nail(s), as described in exam, was performed extensively to reduce/remove overall nail length, girth, thickness, subungual debris, and necrotic tissue, by manual and/or electrical means through the use of a nail nipper and/or dremel-type sapphire stylus grinder, to a more viable healthy nail plate or bed tissue 6-10 nails in total. Silver nitrate was used for any petechial bleeding as necessary. Definitive antifungal treatment options, both pharmaceutical and surgical, have been reviewed and discussed with the patient. The patient solely prefers the use of intermittent/as needed professional debridement services for their nail condition and understands the need for additional periodic treatments to maintain effectiveness in symptomatic relief - 74658 Keratoma Treatment Parring or Cutting o f Benign Hyperkeratotic Lesion(s) (-57) More than 4 Lesions - The Benign hyperkeratotic lesions, ( 12) in total, locations as stated and described in exam, were pared, and/or cut utilizing a sterile 15 blade, tissue nippers, and/or power dremel instrumentation - 02227 Progress Notes * Gerardo WEI GDOB:1945 (79 yo M)Acc No.[id number]:09/25/2024 Progress Note Patient:?Gerardo WEI Provider:?Jacek Parks DPM :1945???Age:79 Y???Sex:Male Patel e:09/25/2024 [facility] [facility] Pcp:Kyung Soto MD Subjective: * Chief Complaints: * ???At Risk FootcareSkin prob vazquez(s) * HPI: ???At Risk footcare:?Pt States Last PCP Visit:?Date?07/21/2024 ???Skin problems:?Nature:?dryness , scaling.?Location:?B/L .?Duration:?several days.?Course:?worse.? * ROS:?General/Constitutional:?Nausea?denies.?Vomiting?denies.?Hunger Thirst?denies.?Loss appetite?denies.?Chills?denies.?Fatigue?denies.?Fever?denies.?Night Sweats?denies.?Unexplained weight loss?denies.?Ophthalmologic:?Blurred [...] alive.?Son(s): alive.?Spouse: alive.?Paternal Grand Mother: diagnosed with Other malignant neoplasm of unspecified site, Diabetic - NIDDM.?Paternal Grand Father: diagnosed with Family history of arthritis.?1 son(s) , 4 daughter(s) . .? * Social History:?Tobacco Use:?Tobacco Use/Smoking?Are you a:?nonsmoker ?Additional Findings: Tobacco Non-User?Current non-smoker ?Tobacco use other than smoking?Are you an other tobacco user??No * Medications:?TakingOzempic D ULoxetine HCl 60 MG Capsule Delayed Release Particles 1 capsule Orally Once a day Jardiance Carvedilol 25 MG Tablet Orally twice daily dilTIAZem HCl Eliquis 5 MG Tablet Orally Gabapentin 600 mg 2 tabs Twice a day glipiZIDE ER 5 MG Tablet Extended Release 24 Hour 1 tablet Orally Once a day Lisinopril 40 mg metFORMIN HCl 1000 MG Tablet Orally Twice a day Multivitamins Tablet as directed Orally Omeprazole 40 mg Pravastatin Sodium 40 mg Extra Depth Orthopedic Shoes (1 Pair) with Customized Heat Molded Multidensity Innersoles (3 Pair) as directed Dx: NIDDM/Polyneuropathy (E11.42), Hammertoe Foot Deformity (M20.41,M20.42), Preulcerative Skin Lesion(s) (L85.1 Fish Oil Capsule 1 capsule Orally Once a day Clotrimazole 1 % Cream APPLY TO AFFECTED AREA TWICE A DAY 30 DAYS. MAX 45GM/30DAYS Taking Ozempic Taking DULoxetine HCl 60 MG Capsule Delayed Release Particles 1 capsule Orally Once a day Taking Jardiance Taking Carvedilol 25 MG Tablet Orally twice daily Taking dilTIAZem HCl Taking Eliquis 5 MG Tablet Orally Taking Gabapentin 600 mg 2 tabs Twice a day Taking glipiZIDE ER 5 MG Tablet Extended Release 24 Hour 1 tablet Orally Once a day Taking Lisinopril 40 mg Taking metFORMIN HCl 1000 MG Tablet Orally Twice a day Taking Multivitamins Tablet as directed Orally Taking Omeprazole 40 mg Taking Pravastatin Sodium 40 mg Taking Extra Depth Orthopedic Shoes (1 Pair) with Customized Heat Molded Multidensity Innersoles (3 Pair) as directed Dx: NIDDM/Polyneuropathy (E11.42), Hammertoe Foot Deformity (M20.41,M20.42), Preulcerative Skin Lesion(s) (L85.1 Taking Fish Oil Capsule 1 capsule Orally Once a day Taking Clotrimazole 1 % Cream APPLY TO AFFECTED AREA TWICE A DAY 30 DAYS. MAX 45GM/30DAYS Not-Taking/PRNTrulicity Azelastine HCl clonazePAM 0.5 MG Tablet 1 tablet Orally twice a day busPIRone HCl Astelin 137 MCG/SPRAY Solution 1 puff in each nostril Nasally Twice a day glipiZIDE 5 MG Tablet 1 tablet Orally Once a day Cymbalta 60 mg Capsule Delayed Release Particles 1 capsule Orally once a day hydroCHLOROthiazide 25 mg Naproxen 500 MG Tablet TAKE 1 TABLET BY MOUTH TWICE A DAY WITH FOOD Oral Medication List reviewed and reconciled with the patientNot- Taking/PRN Trulicity Not-Taking/PRN Azelastine HCl Not-Taking/PRN clonazePAM 0.5 MG Tablet 1 tablet Orally twice a day Not-Taking/PRN busPIRone HCl Not-Taking/PRN Astelin 137 MCG/SPRAY Solution 1 puff in each nostril Nasally Twice a day Not-Taking/PRN glipiZIDE 5 MG Tablet 1 tablet Orally Once a day Not-Taking/PRN Cymbalta 60 mg Capsule Delayed Release Particles 1 capsule Orally once a day Not-Taking/PRN hydroCHLOROthiazide 25 mg Not-Taking/PRN Naproxen 500 MG Tablet TAKE 1 TABLET BY MOUTH TWICE A DAY WITH FOOD Oral Medication List reviewed and reconciled with the patient * Allergies:?Sulfa Antibiotics : rashyes[Allergies Verified] Objective: * Vitals:?Ht: 6 ft 1 in, Wt: 2 12, BMI: 27.97, Shoe size: 13, BP: 118/78 mm Hg, BS: not taken, Wt-k.16 kg. * ???Past Orders: ???Lab:HEMOGLOBIN A1C (GLYCO HEMOGLOBIN) (Order Date - 06/22/2024) (Collection Date & Time - 06/22/2024 10:54 AM) ? Value Reference Range ?TOTAL HEMOGLOBIN (HGBA1C) 6.4 * Examination: ???Neurological: ?SENSORY:?Neurological exam demonstrates, reduced light touch sensation, reduced sharp/dull discrimination , plantar aspects, B/L, 5.07 monofilament test performed at plantar aspects of 5 varied sites per foot shows sensation, reduced, B/L.?Nails: ?NAILS are:?Elongated, overgrown, dystrophic, lytic, greater than 3mm thick, discolored and friable with crumbly malodorous subungual debris, 1-5 B/L.?Dermatologic: ?SKIN FINDINGS:?Skin exam reveals Keratotic lesion(s) located at, Medial, IPJ, TA, Medial, IPJ, T5, SUB MTH (s), 1, B/L , SUB MTH (s), 2, B/L, SUB MTH (s), 3, B/L, SUB MTH (s), 5, B/L , Plantar, Heel, B/L , Skin shows sign(s) of, dryness, scaling, in a stocking fashion, no fissure(s) present, B/L.? Assessment: * Assessment: 1.?Type 2 diabetes mellitus with diabetic polyneuropathy - E11.42 (Primary)???2.?Tinea unguium - B35.1???3.?Xerosis of skin - L85.3???Specify :Acute problem, Uncomplicated (3),Rx Management (4)??? Plan: * Treatment: 2.?Xerosis of skin? Start Ammonium Lactate Cream, 12 %, 1 application, Externally to affected areas of dry skin to feet except for between the toes, Twice a day, 30 days, 140, Refills 2.?? * Procedures:?Debride Nail 6-10:?Nail debridement?Performance of this nail treatment by a nonprofessional would put this patients foot and overall health at risk. Therefore, debridement to affected nail(s), as described in exam, was performed extensively to reduce/remove overall nail length, girth, thickness, subungual debris, and necrotic tissue, by manual and/or electrical means through the use of a nail nipper and/or dremel-type sapphire stylus grinder, to a more viable healthy nail plate or bed tissue 6-10 nails in total. Silver nitrate was used for any petechial bleeding as necessary. Definitive antifungal treatment options, both pharmaceutical and surgical, have been reviewed and discussed with the patient. The patient solely prefers the use of intermittent/as needed professional debridement services for their nail condition and understands the need for additional periodic treatments to maintain effectiveness in symptomatic relief - 44783.?Keratoma Treatment:?Parring or Cutting of Benign Hyperkeratotic Lesion(s)?(-57) More than 4 Lesions - The Benign hyperkeratotic lesions, ( 12) in total, locations as stated and described in exam, were pared, and/or cut utilizing a sterile 15 blade, tissue nippers, and/or power dremel instrumentation - 66157.? * Procedure Codes:?24529 DEBRI DE NAIL, 6 OR MORE, Modifiers: XS 79488 TRIM SKIN LESIONS, OVER 4, Modifiers: XS * Preventive Medicine:? ??Counseling:?Discussion:?-13: Office or other outpatient visit for the evaluation and management of an established patient, which required a medically appropriate history and/or examination and LOW level of DECISION MAKING for: 1 STABLE ACUTE UNCOMPLICATED PROBLEM, 2 OR MORE MINOR PROBLEMS, OR 1 STABLE CHRONIC PROBLEM, THAT POSE(S) A LOW RISK FOR MORBIDITY/MORTALITY. The visit on the day of the encounter encompassed interpreting the data and educating the patient as to the nature of their condition, treatment options available according to their individual PMH, meds, allergies, and overall health/living conditions, as well as any potential risks or complications that may occur from a failure to adhere to, and participate in, the recommended course of therapy. The discussion included a complete verbal, and/or written explanation of the examination results, any x-rays taken, the proposed diagnosis, and outline of the treatment plan. A schedule for future care needs was also explained. The patient verbalized an understanding of the instructions at this time and agreed to be an active participant in their treatment. If the patient should think of any questions or concerns after the visit, I have encouraged the patient to call the office.?Xerosis:?The patient was counseled on the diagnosis, potential etiologies, and treatment options for their skin condition. We discussed the risks and benefits of each option from performing no treatment, to utilizing OTC topical skin creams/ointments, to utilizing prescription topical creams/ointments, to utilizing customized compounded topical medications and use of nocturnal occlusion with any/all previously detailed therapies. We discussed the advantages and disadvantages of each possible treatment and importance for adherence to all the recommended therapies for optimum success and avoid potential complications such as open sore/infection/possible hospitalization. We discussed the potential effectiveness of each topical preparation as well as each ones possible side effects and/or patient medication interactions. Patient questions re: use, dosage, successful outcomes, and application consistency were reviewed and the patient verbalized that all answers were clearly understood. The patient has decided to apply Rx skin creams to their feet save the interspaces while paying special attention to the heels. Such was sent to their pharmacy at the time of visit.? * Follow Up:?prn * Images: * Sign off status: Completed true * Provider:?Jacek Parks DPM Date:?2023 Generated for Дмитрий pace/De/Agustin on:?10/03/2024 08:01 AM EST History and Physical Notes * HPI (History of Present Illness) Category Sub-Category Detail Notes Category Not es Skin problems Nature: dryness , scaling Location: B/L Duration: several days Course: worse At Risk footcare Pt States Last PCP [...] B/L, SUB MTH (s), 5, B/L , Plantar, Heel, B/L , Skin shows sign(s) of, dryness, scaling, in a stocking fashion, no fissure(s) present, B/L Nails NAILS are: Elongated, overg rown, dystrophic, lytic, greater than 3mm thick, discolored and friable with crumbly malodorous subungual debris, 1-5 B/L
--- OUTSIDE RECORDS SUMMARY | 2024-10-03 08:01 | XMS_ITS | Patient Health Record ---
Author Organization [facility] Address [address] [place] [address] Care Team Providers Care Lining Finisher Name Role Phone Kyung Soto MD Primary Care Provider UnavailJacek Sebastian Unavailable [phone] Allergies Allergen (clinical drug ingredient) Drug/Non Drug Allergy documented on EMR Reaction Allergy Type Onset Date Status Substance with sulfonamide structure and antibacterial mechanism of action (substance) Sulfa Antibiotics rash Drug Allergy Active Results Component Value Reference Range Notes HEMOGLOBIN A1C (GLYCOHEMOGLO BIN) Reviewed date:01/30/2024 08:34:51 AM Interpretation: Performing Lab: Notes/Report: HEMOGLOBIN A1C % (HH) 7.4 HEMOGLOBIN A1C (GLYCOHEMOGLO BIN) Reviewed date:09/25/2024 10:55:31 AM Interpretation: Performing Lab: Notes/Report: TOTAL HEMOGLOBIN (HGBA1C) 6.4 Reason For Referral No Information Medications Medication SIG (Take, Route, Frequency, Duration) Notes Start Date End Date Status Trulicity Not-Taking Azelastine HCl Not-T aking Fish Oil 1 capsule Orally Onc e [...] (M20.41,M20.42), Preulcerative Skin Lesion(s) (L85.1 09/10/2023 Active glipiZIDE 5 MG 1 tablet Orally Once a day Not-Taking Ozempic Active Cymbalta 60 mg 1 capsule Orally onc e a day for 30 day(s) Not-Taking busPIRone HCl Not-Ta munir Astelin 137 MCG/SPRAY 1 puff in each nostril Nasally Twice a day for 30 day(s) Not-Taking clonazePAM 0.5 MG 1 tablet Orally twic e a day Not-Taking glipiZIDE ER 5 MG 1 tablet Orally Once a day Active Eliquis 5 MG Orally Active Gabapentin 600 mg 2 tabs Twice a day Active Ammonium Lactate 12 % 1 application Externally to affected areas of dry skin to feet except for between the toes Twice a day for 30 days Active Carvedilol 25 MG Orally twice daily Active dilTIAZem HCl Active DULoxetine HCl 60 MG 1 capsule Orally On ce a day Active hydroCHLOROthiazide 25 mg Not-Taking Jardiance Active Naproxen 500 MG TAKE 1 TABLET BY MOUTH TWICE A DAY WITH FOOD Oral for 30 Not-Taking Multivitamins as directed Orally Active Omeprazole 40 mg Act oskar Lisinopril 40 mg Act oskar metFORMIN HCl 1000 MG Orally Twice a day Active Immunizations Vaccine Route Administration Date Status Comme nts Pneumococcal Unknown 09/21/2015 Administered Pneumococcal Unknown 08/08/2016 Administered Influenza Unknown 02/23/2016 Administered Influenza Unknown 07/27/2016 Administered Influenza Unknown 09/12/2017 Administered Influenza Unknown 08/09/2018 Administered Influenza Unknown 07/22/2019 Administered COVID-19 Moderna Vaccine Unknown 12/01/2020 Administere d #2 12/29/20 Social History Tobacco Use: Social History Observation [...] Are you an other tobacco user? No Problems Problem Type SNOMED Code ICD Code Onset Dates Problem Status W/U Status Risk Notes Problem Acquired hammer toe of right foot (0720191335548205 ) Other hammer toe(s) (acquired), right foot (M20.41) Active confirmed Response to treatment, Improvemen t Problem Acquired hammer toe of left foot (6029091907812418 ) Other hammer toe(s) (acquired), left foot (M20.42) Active confirmed Response to treatment, Gigi gomez Problem Polyneuropathy due to type 2 diabetes mellitus (936053972) Type 2 diabetes mellitus with diabetic polyneuropathy (E11.42) Active confirmed Vital Signs Blood pressure diastolic 78 mm Hg 09/25/2024 Height 6 ft 1 in in 09/25/2024 Blood pressure systolic 118 mm Hg 09/25/2024 Weight 212 lbs 09/25/2024 BMI 27.97 kg/m2 09/25/2024 Procedures Procedure Date Ordered Date Performed Result Body Sit e 69566-AQWLWMV NAIL, 6 OR MORE 11/19/2023 N/A 62200-VNUZ SKIN LESIONS, OVER 4 11/19/2023 N/A 60521-HZOQQWS NAIL, 6 OR MORE 01/30/2024 N/A 53273-RFWY SKIN LESIONS, OVER 4 01/30/2024 N/A 74737-PNKRDHW NAIL, 6 OR MORE 04/14/2024 N/A 02383-HVFZ SKIN LESIONS, OVER 4 04/14/2024 N/A 71167-HTCVEJN NAIL, 6 OR MORE 06/26/2024 N/A 66521-KTUF SKIN LESIONS, OVER 4 06/26/2024 N/A 62813-TOQFXJC NAIL, 6 OR MORE 09/25/2024 N/A 55907-CJKF SKIN LESIONS, OVER 4 09/25/2024 N/A Encounters Encounter Location Date Provider Diagnosis [address] [address] 11/19/2023 Jacek Parks Type 2 diabetes mellitus with diabetic polyneuropathy E11.42 and Tinea unguium B35.[address] [address] 01/30/2024 Jacek Charly Type 2 diabetes mellitus with diabetic polyneuropathy E11.42 ; Tinea unguium B35.1 ; Other hammer toe(s) (acquired), right foot M20.41 and Other hammer toe(s) (acquired), left foot M20.[address] [address] 04/14/2024 Jacek Parks Type 2 diabetes mellitus with diabetic polyneuropathy E11.42 and Tinea unguium B35.[address] [address] 06/26/2024 Jacek Parks Type 2 diabetes mellitus with diabetic polyneuropathy E11.42 and Tinea unguium B35.[address] [address] 09/25/2024 Jacek Parks Type 2 diabetes mellitus with diabetic polyneuropathy E11.42 ; Tinea unguium B35.1 and Xerosis of skin L85.3 Assessments Encounter Date Diagnosis (ICD Code) Assessment Notes Treatment Notes Treatment Clinical Notes Section Notes 01/30/2024 Type 2 diabetes mellitus with diabetic polyneuropathy (ICD-10 - E11.42) 01/30/2024 Tinea unguium (ICD-10 - B35.1) 04/14/2024 Type 2 diabetes mellitus with diabetic polyneuropathy (ICD-10 - E11.42) 04/14/2024 Tinea unguium (ICD-10 - B35.1) 06/26/2024 Type 2 diabetes mellitus with diabetic polyneuropathy (ICD-10 - E11.42) 06/26/2024 Tinea unguium (ICD-10 - B35.1) 09/25/2024 Type 2 diabetes mellitus with diabetic polyneuropathy (ICD-10 - E11.42) 09/25/2024 Tinea unguium (ICD-10 - B35.1) 11/19/2023 Type 2 diabetes mellitus with diabetic polyneuropathy (ICD-10 - E11.42) 11/19/2023 Tinea unguium (ICD-10 - B35.1) 09/25/2024 Xerosis of skin (ICD-10 - L85.3) 01/30/2024 Other hammer toe(s) (acquired), right foot (ICD-10 - M20.41) Response to treatment,Impro vement 01/30/2024 Other hammer toe(s) (acquired), left foot (ICD-10 - M20.42) Response to treatment,Impro vement 11/19/2023 Other 01/30/2024 Other Plan Of Treatment Pending Test Test Name Order Date Hemoglobin A1c 02/24/2015 X ray : Foot, left 3V 10/18/2017 19807-EESGHZH NAIL, 6 OR MORE 11/23/2017 74274-OEWFYIT NAIL, 6 OR MORE 02/05/2018 74779-ZFDUQYE NAIL, 6 OR MORE 04/16/2018 14915-DXASUTE NAIL, 6 OR MORE 2018 52537-WMGVSVV NAIL, 6 OR MORE 09/25/2018 56660-HPTPFQU NAIL, 6 OR MORE 12/26/2018 30977-VDFQPHJ NAIL, 6 OR MORE 04/02/2019 82112-ZDBOPAP NAIL, 6 OR MORE 06/04/2019 57061-KIGLIXR NAIL, 6 OR MORE 02/23/2016 29187-DPKEKNG NAIL, 6 OR MORE 05/24/2016 63643-INMXNNH NAIL, 6 OR MORE 08/21/2016 21513-XRSQDWN NAIL, 6 OR MORE 10/30/2016 52635-RXPIQAQ NAIL, 6 OR MORE 01/29/2017 11916-OEWTREK NAIL, 6 OR MORE 04/05/2017 64146-ZFDKXFV NAIL, 6 OR MORE 07/11/2017 62179-YFMEAGG NAIL, 6 OR MORE 09/19/2017 68422-TYRWJHS NAIL, 6 OR MORE 05/10/2015 42226-JAZOPVK NAIL, 6 OR MORE 07/19/2015 15923-UCYREIZ NAIL, 6 OR MORE 09/30/2015 65164-RTQJFAJ NAIL, 6 OR MORE 12/16/2015 51840-WRZCIOS NAIL, 6 OR MORE 11/14/2012 39831-HONJVBQ NAIL, 6 OR MORE 09/21/2014 07671-XBNVPHG NAIL, 6 OR MORE 12/14/2014 35171-LTYZOYO NAIL, 6 OR MORE 02/24/2015 65705-TFBXZSQ NAIL, 6 OR MORE 03/19/2013 49906-YTBSCDQ NAIL, 6 OR MORE 06/26/2013 53811-ZJYUCET NAIL, 6 OR MORE 09/10/2013 87051-LDFWMHR NAIL, 6 OR MORE 11/20/2013 78640-NVOYOIR NAIL, 6 OR MORE 01/21/2014 37426-OQADFTZ NAIL, 6 OR MORE 05/04/2014 97039-LDWDEHT NAIL, 6 OR MORE 07/20/2014 92831-WNQRXTL NAIL, 6 OR MORE 08/13/2019 50585-MMMKURR NAIL, 6 OR MORE 12/15/2019 89425-XRKRIVA NAIL, 6 OR MORE 07/15/2020 66378-WPLIDIG NAIL, 6 OR MORE 01/13/2021 68904-HLXNHLW NAIL, 6 OR MORE 04/11/2021 33116-DMXWHNC NAIL, 6 OR MORE 07/13/2021 70767-THGUDEQ NAIL, 6 OR MORE 09/21/2021 03512-CROMHHQ NAIL, 6 OR MORE 12/07/2021 86530-MQRIYJO NAIL, 6 OR MORE 02/15/2022 57351-SUXFGNC NAIL, 6 OR MORE 04/26/2022 87209-LAYCLCF NAIL, 6 OR MORE 07/17/2022 54771-AZJDQMU NAIL, 6 OR MORE 09/25/2022 29609-BBUBHBZ NAIL, 6 OR MORE 12/04/2022 74265-MCCMVRV NAIL, 6 OR MORE 02/12/2023 12083-CEZHLBK NAIL, 6 OR MORE 04/26/2023 43279-QJRLSFU NAIL, 6 OR MORE 07/05/2023 64442-APQRZSV NAIL, 6 OR MORE 09/10/2023 80602-ARIAEIJ NAIL, 6 OR MORE 11/19/2023 27304-SLIMMFX NAIL, 6 OR MORE 01/30/2024 42777-GXMQXCX NAIL, 6 OR MORE 04/14/2024 93031-VLEYNAC NAIL, 6 OR MORE 06/26/2024 81450-SYUPCCE NAIL, 6 OR MORE 09/25/2024 35257-Bmwxckjn Plate 07/20/2014 56574-Gpsbbszp Plate 05/04/2014 60102-Sluwpcgz Plate 01/21/2014 89149-Deaxogzh Plate 11/20/2013 46825-Knsbgrin Plate 12/14/2014 34709-Chwcxnoo Plate 09/21/2014 09455-Ubwmfhiu Plate 01/06/2013 73828-Nncxdvul Plate 05/10/2015 83612-Jkrlvxra Plate Each Additional 49134-Nsnsqkjx Plate Each Additional 11/2013 30476-Wxfqfcmm Plate Each Additional 47735-Mmdmylyc Plate Each Additional 51775- Debride <25 sq cm 10/18/2017 75102- Debride <25 sq cm 02/05/2018 83977 I&D ABSCESS- SIMPLE,SINGLE 013 49025-FGDE SKIN LESIONS, OVER 4 09/25/20 79966-OGKL SKIN LESIONS, OVER 4 06/26/20 87633-YRFV SKIN LESIONS, OVER 4 04/14/20 60538-DKZD SKIN LESIONS, OVER 4 01/30/20 18989-QHHJ SKIN LESIONS, OVER 4 11/19/19 35087-XYJM SKIN LESIONS, OVER 4 09/10/20 65975-CHSY SKIN LESIONS, OVER 4 07/05/20 76954-ZYKD SKIN LESIONS, OVER 4 04/26/20 54246-QHNW SKIN LESIONS, OVER 4 02/13/20 05273-XYKV SKIN LESIONS, OVER 4 12/04/19 16820-XCNH SKIN LESIONS, OVER 4 09/25/20 37225-SDNM SKIN LESIONS, OVER 4 07/17/20 65288-PGGL SKIN LESIONS, OVER 4 04/26/20 56176-GEBI SKIN LESIONS, OVER 4 02/16/20 76997-ZPQM SKIN LESIONS, OVER 4 12/07/19 48329-HDAF SKIN LESIONS, OVER 4 09/21/20 15104-UCGC SKIN LESIONS, OVER 4 07/13/20 14175-TODI SKIN LESIONS, OVER 4 04/11/20 28474-FYRC SKIN LESIONS, OVER 4 01/14/20 77638-LWMN SKIN LESIONS, OVER 4 07/15/20 20 12191-MSMU SKIN LESIONS, OVER 4 12/15/19 20 05212-MDND SKIN LESIONS, OVER 4 08/13/20 45444-BQRN SKIN LESIONS, OVER 4 02/06/20 18 28749-DGQD SKIN LESIONS, OVER 4 11/23/19 18 83855-LJAK SKIN LESIONS, OVER 4 06/25/20 18 20172-ROJW SKIN LESIONS, OVER 4 04/16/20 18 78157-IBAY SKIN LESIONS, OVER 4 06/04/20 19 79860-GJDM SKIN LESIONS, OVER 4 04/02/20 19 11935-VEZG SKIN LESIONS, OVER 4 12/27/19 19 47734-FSWC SKIN LESIONS, OVER 4 09/25/20 18 31822-LPTL SKIN LESIONS, OVER 4 09/19/20 17 88492-LUEG SKIN LESIONS, OVER 4 07/11/20 17 70973-HCCV SKIN LESIONS, OVER 4 01/30/20 17 19621-DRBY SKIN LESIONS, OVER 4 04/05/20 17 59399-CYSV SKIN LESIONS, OVER 4 10/30/19 17 12689-EAFX SKIN LESIONS, OVER 4 08/21/20 16 17567-AOUN SKIN LESIONS, OVER 4 05/24/20 16 87194-LNIX SKIN LESIONS, OVER 4 02/23/20 16 36009-XSSV SKIN LESIONS, OVER 4 07/20/20 14 85076-PJXI SKIN LESIONS, OVER 4 05/10/20 15 04553-LBCZ SKIN LESIONS, OVER 4 12/16/19 16 11551-MUOL SKIN LESIONS, OVER 4 07/19/20 15 28257-LRTL SKIN LESIONS, OVER 4 09/30/20 15 92447-AYRO SKIN LESIONS, OVER 4 09/21/20 14 75852-ERRW SKIN LESIONS, OVER 4 12/14/19 15 80695-IWYH SKIN LESIONS, OVER 4 02/25/20 15 50135-MIVG SKIN LESIONS, 2 TO 4 05/04/20 14 56487-KMQX SKIN LESIONS, 2 TO 4 01/22/20 14 19034-KZQK SKIN LESIONS, 2 TO 4 11/20/19 14 Next Appt Details Provider Name:Jacek Garcia Charly , 12/31/2024 08:45:00 AM, [address] [facility], [place] [address], [place], [address], Insurance Providers Payer Name Payer Address Payer Phone Subscriber Number Group Number Insured Name Patient Relationship to Insured Coverage Start Date Coverage End Date Medicare National [employer]t [employer] [address] [facility] [place] [address] [id number] Gerardo Wei Self - patient is the insured 0 [employer] [address] [place] [address] [id number] Gerardo Wei Self - patient is the insured Medical (General) History Medical History History ICD Code chicken pox cholesterol Diabetic high blood pressure measles mumps reflux Surgical History Surgery Date(Month/Year) elbow sx 1984 prostate surgery 06/2012 eye surgery 12/07/2015 gall bladder 06/30/2016 left knee replacement 12/28/2016 skin cancer, cheek Hospitalization History Reason Date(Month/Year) [facility]- Dehydration and A-fib 01/2018
[2024-10-03 10:31] LABS: MANUAL DIFF FLAG NO
[2024-10-03 10:39] LABS: Basophils Percent Auto 0.4 % (0-2); Eosinophils Absolute Auto 0.3 X10*3/uL (0.0-0.4); Eosinophils Percent Auto 3.6 % (0-4); Hemoglobin 16.3 g/dl (14.0-18.0); Imm Gran Abs Auto 0.02 X10*3/uL (0.00-0.03); Imm Gran Pct Auto 0.2 % (0.0-0.4); Lymphocytes Absolute Auto 3.4 X10*3/uL (1.2-4.9); Lymphocytes Percent Auto 37.6 % (20-40); Mean Corpuscular HGB Conc 34.7 g/dl (31.0-36.0); Mean Corpuscular Hemoglobin 29.3 pg (27.0-33.0); Mean Corpuscular Volume 84.5 fL (80.0-98.0); Mean Platelet Volume 8.6 fL (9.4-12.4); Monocytes Absolute Auto 0.7 X10*3/uL (0.1-1.2); Monocytes Percent Auto 7.9 % (2-11); Neutrophils Absolute Auto 4.6 x10*3/uL (2.0-8.3); Neutrophils Percent Auto 50.3 % (45-73); Platelet Count 277 X10*3/uL (160-400); Red Blood Count 5.56 X10*6/uL (4.60-5.80); Red Cell Distribution Width 14.4 % (11.0-16.0); White Blood Count 9.1 X10*3/uL (4.8-10.8)
[2024-10-03 10:43] LABS: Creatinine Urine 174.65 mg/dL
[2024-10-03 10:51] LABS: Estimated Average Glucose 137 mg/dL; Hemoglobin A1C 193.7945 umol/L; Hemoglobin A1c % 6.4 % (<6.0); Total Hemoglobin (HGBA1C) 4129.3287 umol/L
[2024-10-03 11:04] LABS: Alanine Aminotransferase 43 U/L (0-40); Alkaline Phosphatase 88 U/L (39-117); Anion Gap 14 (12-20); Aspartate Amino Transferase 25 U/L (5-37); Bilirubin Total 0.4 mg/dL (0.0-1.0); Blood Urea Nitrogen 16 mg/dL (9-16); Calcium 9.6 mg/dL (8.4-10.2); Carbon Dioxide 26 mmol/L (22-29); Chloride 100 mmol/L (96-108); Cholesterol 143 mg/dL (<200); Estimated Glomerular Filt Rate > 60; Glucose Fasting 124 mg/dL (60-99); HDL Cholesterol 50 mg/dL (>40); LDL Cholesterol Calculated 53 mg/dL (<100); Potassium 4.3 mmol/L (3.3-5.1); Sodium 136 mmol/L (135-145); Total Protein 6.8 g/dL (6.5-8.0); Triglycerides 201 mg/dL (<150)
== END 2024-10-03 07:59 | disposition home or self-care (01) ==
LOC: HO.HMGCLDS 07:58
PROVIDERS: PCP Internal Medicine; Visit Provider Internal Medicine
DX: I10 Essential (primary) hypertension (principal); E11.9 Type 2 diabetes mellitus without complications; E78.5 Hyperlipidemia, unspecified
CPT/HCPCS: 36415; 80053; 80061; 82043; 82570; 83036; 85025

== ENCOUNTER 2025-05-04 07:49 | Outpatient (REF) | payer MEDICARE, SELFPAY ==
--- OUTSIDE RECORDS SUMMARY | 2025-05-04 07:51 | XMS_ITS | Patient Health Record ---
Author Organization [facility] Address [address] [place] [address] Care Team Providers Care Internet Sales Manager Name Role Phone Kyung Soto MD Primary Care Provider UnavailJacek Sebastian Unavailable [phone] Allergies Allergen (clinical drug ingredient) Drug/Non Drug Allergy documented on EMR Reaction Allergy Type Onset Date Status Substance with sulfonamide structure and antibacterial mechanism of action (substance) Sulfa Antibiotics rash Drug Allergy Active Results Component Value Reference Range Notes HEMOGLOBIN A1C (GLYCOHEMOGLO BIN) Reviewed date:01/29/2025 10:20:06 AM Interpretation: Performing Lab: Notes/Report: HEMOGLOBIN A1C % (HH) 6.1 HEMOGLOBIN A1C (GLYCOHEMOGLO BIN) Reviewed date:09/25/2024 10:55:31 AM Interpretation: Performing Lab: Notes/Report: TOTAL HEMOGLOBIN (HGBA1C) 6.4 Reason For Referral No Information Medications Medication SIG (Take, Route, Frequency, Duration) Notes Start Date End Date Status Clotrimazole 1 % APPLY 1 APPLICATION TO AFFECTED AREA TWICE A DAY; Duration: 30 Active Ammonium Lactate 12 % 1 application Externally to affected areas of dry skin to feet except for between the toes Twice a day; Duration: 30 days Active Azelastine HCl Not-T aking Trulicity Not-Taking Pravastatin Sodium 40 mg Active Omeprazole 40 mg Act oskar Fish Oil 1 capsule Orally Onc e a day; Duration: 30 day(s) Active Multivitamins as directed Orally Active metFORMIN HCl 1000 MG Orally Twice a day Active Extra Depth Orthopedic Shoes (1 Pair) with Customized Heat Molded Multidensity Innersoles (3 Pair) as directed Dx: NIDDM/Polyneuropathy (E11.42), Hammertoe Foot Deformity (M20.41,M20.42), Preulcerative Skin Lesion(s) (L85.1 Active Lisinopril 40 mg Act oskar Eliquis 5 MG Orally Active dilTIAZem HCl Active glipiZIDE ER 5 MG 1 tablet Orally Once a day Active Gabapentin 600 mg 2 tabs Twice a day Active DULoxetine HCl 60 MG 1 capsule Orally On ce a day Active Cymbalta 60 mg 1 capsule Orally onc e a day; Duration: 30 day(s) Not-Taking Ozempic Active glipiZIDE 5 MG 1 tablet Orally Once a day Not-Taking Carvedilol 25 MG Orally twice daily Active Naproxen 500 MG TAKE 1 TABLET BY MOUTH TWICE A DAY WITH FOOD Oral; Duration: 30 Not-Taking Jardiance Active hydroCHLOROthiazide 25 mg Not-Taking clonazePAM 0.5 MG 1 tablet Orally twic e a day Not-Taking Astelin 137 MCG/SPRAY 1 puff in each nostril Nasally Twice a day; Duration: 30 day(s) Not-Taking busPIRone HCl Not-Ta munir Immunizations Vaccine Route Administration Date Status Comme nts COVID-19 Moderna Vaccine Unknown 12/01/2020 Administere d #2 12/29/20 Influenza Unknown 02/23/2016 Administered Influenza Unknown 07/27/2016 Administered Influenza Unknown 09/12/2017 Administered Influenza Unknown 08/09/2018 Administered Influenza Unknown 07/22/2019 Administered Pneumococcal Unknown 09/21/2015 Administered Pneumococcal Unknown 08/08/2016 Administered Social History Tobacco Use: Social History Observation Description Date Details (start date - stop date) Never Smoker NA - NA Alcohol Screen Question Answer Notes Did you have a drink containing alcohol in the p ast year? No Points 0 Interpretation Negative Tobacco use other than smoking: Question Answer Notes Are you an other tobacco user? No Tobacco Control (Standard) Question Answer Notes Tobacco use: Nonsmoker Additional Findings: Tobacco non-user Current no nsmoker Problems Problem Type SNOMED Code ICD Code Onset Dates Problem Status W/U Status Risk Notes Problem Acquired hammer toe of right foot (8904532458515171 ) Other hammer toe(s) (acquired), right foot (M20.41) Active confirmed Response to treatment, Improvemen t Problem Acquired hammer toe of left foot ([id number] ) Other hammer toe(s) (acquired), left foot (M20.42) Active confirmed Response to treatment, Gigi gomez Problem Polyneuropathy due to type 2 diabetes mellitus (366813912) Type 2 diabetes mellitus with diabetic polyneuropathy (E11.42) Active confirmed Vital Signs Blood pressure diastolic 70 mm Hg 01/29/2025 Height 6 ft 1 in in 01/29/2025 Blood pressure systolic 122 mm Hg 01/29/2025 Weight 212 lbs 01/29/2025 BMI 27.97 kg/m2 01/29/2025 Procedures Procedure Date Ordered Date Performed Result Body Sit e 15256-YPIBIGJ NAIL, 6 OR MORE 06/26/2024 N/A 56837-WZOJ SKIN LESIONS, OVER 4 06/26/2024 N/A 76686-BPOAGFJ NAIL, 6 OR MORE 09/25/2024 N/A 97706-ONZJ SKIN LESIONS, OVER 4 09/25/2024 N/A 87191-WOUYPCR NAIL, 6 OR MORE 01/29/2025 N/A 90785-UZQW SKIN LESIONS, OVER 4 01/29/2025 N/A Encounters Encounter Location Date Provider Diagnosis [address] [address] 06/26/2024 Jacekconor WatsonCharly Type 2 diabetes mellitus with diabetic polyneuropathy E11.42 and Tinea unguium B35.[address] [address] 09/25/2024 Jacek Charly Type 2 diabetes mellitus with diabetic polyneuropathy E11.42 ; Tinea unguium B35.1 and Xerosis of skin L85.[address] [address] 01/29/2025 Jacek Charly Type 2 diabetes mellitus with diabetic polyneuropathy E11.42 ; Tinea unguium B35.1 ; Other hammer toe(s) (acquired), right foot M20.41 and Other hammer toe(s) (acquired), left foot M20.42 Assessments Encounter Date Diagnosis (ICD Code) Assessment Notes Treatment Notes Treatment Clinical Notes Section Notes 06/26/2024 Type 2 diabetes mellitus with diabetic polyneuropathy (ICD-10 - E11.42) 06/26/2024 Tinea unguium (ICD-10 - B35.1) 09/25/2024 Type 2 diabetes mellitus with diabetic polyneuropathy (ICD-10 - E11.42) 09/25/2024 Tinea unguium (ICD-10 - B35.1) 01/29/2025 Type 2 diabetes mellitus with diabetic polyneuropathy (ICD-10 - E11.42) 01/29/2025 Tinea unguium (ICD-10 - B35.1) 01/29/2025 Other hammer toe(s) (acquired), right foot (ICD-10 - M20.41) Patient Educated with: DIABETIC FOOT CARE INSTRUCTIONS. pdf (DIABETIC FOOT CARE INSTRUCTIONS. pdf) 09/25/2024 Xerosis of skin (ICD-10 - L85.3) 01/29/2025 Other hammer toe(s) (acquired), left foot (ICD-10 - M20.42) Plan Of Treatment Pending Test Test Name Order Date Hemoglobin A1c 02/24/2015 X ray : Foot, left 3V 10/18/2017 80471-PMIWYYI NAIL, 6 OR MORE 11/23/2017 04930-DAJSVMW NAIL, 6 OR MORE 02/05/2018 81045-VANLBVY NAIL, 6 OR MORE 04/16/2018 90551-AMAQONL NAIL, 6 OR MORE 2018 76037-WLLCCMN NAIL, 6 OR MORE 09/25/2018 56995-GINDJYV NAIL, 6 OR MORE 12/26/2018 71311-BPRWQUM NAIL, 6 OR MORE 04/02/2019 19438-JLBBYRY NAIL, 6 OR MORE 06/04/2019 38031-LKTHLFB NAIL, 6 OR MORE 02/23/2016 48947-EJFCXPQ NAIL, 6 OR MORE 05/24/2016 04243-MIYKYME NAIL, 6 OR MORE 08/21/2016 01970-NDIVELZ NAIL, 6 OR MORE 10/30/2016 23353-QVMYULN NAIL, 6 OR MORE 01/29/2017 86456-CPLWVUR NAIL, 6 OR MORE 04/05/2017 67863-JBBHXPJ NAIL, 6 OR MORE 07/11/2017 49966-QVDGMCP NAIL, 6 OR MORE 09/19/2017 25864-OOONTTT NAIL, 6 OR MORE 05/10/2015 72959-QFKBCDA NAIL, 6 OR MORE 07/19/2015 79044-UNFPXYE NAIL, 6 OR MORE 09/30/2015 17489-ORYBQLM NAIL, 6 OR MORE 12/16/2015 42442-GBWDEDK NAIL, 6 OR MORE 11/14/2012 20350-MTTEEXE NAIL, 6 OR MORE 09/21/2014 86672-OAITOGL NAIL, 6 OR MORE 12/14/2014 15306-IYABUAM NAIL, 6 OR MORE 02/24/2015 62296-BZXQYEV NAIL, 6 OR MORE 03/19/2013 68358-RNYGJQA NAIL, 6 OR MORE 06/26/2013 22010-LRHYTWF NAIL, 6 OR MORE 09/10/2013 10310-HWKSNBS NAIL, 6 OR MORE 11/20/2013 54516-LFCGPGJ NAIL, 6 OR MORE 01/21/2014 84591-CEGCUIE NAIL, 6 OR MORE 05/04/2014 13961-KSYGOTA NAIL, 6 OR MORE 07/20/2014 72827-NVFLKPH NAIL, 6 OR MORE 08/13/2019 02232-QDLHNYH NAIL, 6 OR MORE 12/15/2019 73541-NSBMXBP NAIL, 6 OR MORE 07/15/2020 33327-WHNWYFT NAIL, 6 OR MORE 01/13/2021 59756-PRROTZW NAIL, 6 OR MORE 04/11/2021 47981-LLMFAOM NAIL, 6 OR MORE 07/13/2021 80530-SFGZENM NAIL, 6 OR MORE 09/21/2021 72773-BBAIYDW NAIL, 6 OR MORE 12/07/2021 28903-XRPWOSK NAIL, 6 OR MORE 02/15/2022 44335-IIMPIJV NAIL, 6 OR MORE 04/26/2022 31364-JTYWXDX NAIL, 6 OR MORE 07/17/2022 10948-RKYXPPC NAIL, 6 OR MORE 09/25/2022 10908-BKFCHUK NAIL, 6 OR MORE 12/04/2022 88941-XWYZZDQ NAIL, 6 OR MORE 02/12/2023 39056-GIYSVUK NAIL, 6 OR MORE 04/26/2023 27311-LGMBVND NAIL, 6 OR MORE 07/05/2023 47790-FHPIHAI NAIL, 6 OR MORE 09/10/2023 78834-YEBLYXY NAIL, 6 OR MORE 11/19/2023 09603-PXUTMRZ NAIL, 6 OR MORE 01/30/2024 46303-FTKSIVQ NAIL, 6 OR MORE 04/14/2024 67324-TLHDNMQ NAIL, 6 OR MORE 06/26/2024 51166-EGZAMDA NAIL, 6 OR MORE 09/25/2024 23781-NXLXMTB NAIL, 6 OR MORE 01/29/2025 24558-Jvurdwhi Plate 07/20/2014 47249-Nctaayga Plate 05/04/2014 82913-Junqpvrf Plate 01/21/2014 98647-Iangxaxu Plate 11/20/2013 79793-Pmwnidka Plate 12/14/2014 35466-Awgubrky Plate 09/21/2014 67380-Tryzssdk Plate 01/06/2013 29821-Lsewogcl Plate 05/10/2015 36668-Bbhrqmhj Plate Each Additional 42177-Cjyvuhcv Plate Each Additional 11/2013 68754-Itiiabhm Plate Each Additional 71608-Vknlujfq Plate Each Additional 99665- Debride <25 sq cm 10/18/2017 74416- Debride <25 sq cm 02/05/2018 47201 I&D ABSCESS- SIMPLE,SINGLE 013 15850-QEVB SKIN LESIONS, OVER 4 01/30/20 25 85555-ERVV SKIN LESIONS, OVER 4 09/25/20 24 41163-BAFB SKIN LESIONS, OVER 4 06/26/20 24 99167-SIMZ SKIN LESIONS, OVER 4 04/14/20 24 04467-JCDZ SKIN LESIONS, OVER 4 01/30/20 24 82229-TPAW SKIN LESIONS, OVER 4 11/19/19 24 80508-YTMS SKIN LESIONS, OVER 4 09/10/20 23 34567-IAMB SKIN LESIONS, OVER 4 07/05/20 23 05691-KACO SKIN LESIONS, OVER 4 04/26/20 23 19798-QUNH SKIN LESIONS, OVER 4 02/13/20 23 71744-BXXO SKIN LESIONS, OVER 4 12/04/19 23 91893-PWPS SKIN LESIONS, OVER 4 09/25/20 78286-DSIL SKIN LESIONS, OVER 4 07/17/20 22 11385-GBUV SKIN LESIONS, OVER 4 04/26/20 67519-JOJA SKIN LESIONS, OVER 4 02/16/20 22 66083-SKSE SKIN LESIONS, OVER 4 12/07/19 96450-VUCF SKIN LESIONS, OVER 4 09/21/20 21 80228-TLOF SKIN LESIONS, OVER 4 07/13/20 21 86020-HSPI SKIN LESIONS, OVER 4 04/11/20 21 05699-CNYN SKIN LESIONS, OVER 4 01/14/20 21 47704-CTHY SKIN LESIONS, OVER 4 07/15/20 20 26324-GZAU SKIN LESIONS, OVER 4 12/15/19 20 96622-IDZM SKIN LESIONS, OVER 4 08/13/20 19 95999-JJON SKIN LESIONS, OVER 4 02/06/20 18 83934-TTQA SKIN LESIONS, OVER 4 11/23/19 18 78418-NSHO SKIN LESIONS, OVER 4 06/25/20 18 32862-DGEQ SKIN LESIONS, OVER 4 04/16/20 18 26559-TUUI SKIN LESIONS, OVER 4 06/04/20 19 58584-WKPS SKIN LESIONS, OVER 4 04/02/20 19 26092-KVZB SKIN LESIONS, OVER 4 12/27/19 19 67576-USFO SKIN LESIONS, OVER 4 09/25/20 18 11910-GHJY SKIN LESIONS, OVER 4 09/19/20 17 15093-RVHK SKIN LESIONS, OVER 4 07/11/20 17 25919-MNIT SKIN LESIONS, OVER 4 01/30/20 17 28095-ASGI SKIN LESIONS, OVER 4 04/05/20 17 61076-NEKT SKIN LESIONS, OVER 4 10/30/19 17 15670-POVW SKIN LESIONS, OVER 4 08/21/20 16 33198-GWWK SKIN LESIONS, OVER 4 05/24/20 16 65272-GKHX SKIN LESIONS, OVER 4 02/23/20 16 81431-PZVR SKIN LESIONS, OVER 4 07/20/20 14 86169-IGEE SKIN LESIONS, OVER 4 05/10/20 15 17545-GANV SKIN LESIONS, OVER 4 12/16/19 16 22795-CVQO SKIN LESIONS, OVER 4 07/19/20 15 58215-JNVO SKIN LESIONS, OVER 4 09/30/20 15 02054-ECFM SKIN LESIONS, OVER 4 09/21/20 14 93258-ZLBR SKIN LESIONS, OVER 4 12/14/19 15 77327-RUYO SKIN LESIONS, OVER 4 02/25/20 15 48344-TIEL SKIN LESIONS, 2 TO 4 05/04/20 14 27169-MUZC SKIN LESIONS, 2 TO 4 01/22/20 14 37671-FKDB SKIN LESIONS, 2 TO 4 11/20/19 14 Next Appt Details Provider Name:Jacek Parks , 05/25/2025 09:00:00 AM, [address] [facility], [address], [place], [address], Insurance Providers Payer Name Payer Address Payer Phone Subscriber Number Group Number Insured Name Patient Relationship to Insured Coverage Start Date Coverage End Date Medicare National Govt [facility] [address] [place] [address] [id number] Gerardo Wei Self - patient is the insured 0 [employer] [address] [place] [address] [id number] Gerardo Wei Self - patient is the [...]
--- OUTSIDE RECORDS SUMMARY | 2025-05-04 07:51 | XMS_ITS | Data Portability ---
Author Organization [place] [facility], Allergy Address [address] [place] [address] Care Team Providers Care Manager Case Name Role Phone DIANECkBHAVESH Primary Care Provider Assessment No assessment recorded. Plan of Treatment Reminders Order Date Submit Date Provider Last Modified By Organization Details Last Modified Time Details Appointments [facility] Follow Up (30) 2024 09:30A M JORGE ALVARES Not available Not available Not available Lab None recorded . Referral None recorded . Procedures None recorded . Surgeries None recorded . Imaging None recorded . Medication Orders None recorded . Patient TargetsNo targets recorded. Patient InstructionsNo instructions recorded. Reason for Referral None Reported. Results Created Date Observation Date Name Description Value Unit Range Abnormal Flag Note LastModifiedBy Organization Detail LastModifiedTime 02/21/20 25 audio gram No observ ation record ed. BARCODE Not Available 2024 14:24:36 Result Notes None recorded. Problems Name Problem SNOMED Code Status Onset Date Resolution Date Notes Provider Name and Address Organization Details Recorded Time Otorrhagi a of right ear 76122222658 96010 Active 2019 Otorrhagi a, right ear; Note: Date Diagnosed : 06/18/2020 10:22 AM (H92.21) Not Available [facility] 4 02:33:32 Sensorine ural hearing loss of bilateral ears 341277302 Active 2018 Sensorine ural hearing loss, bilateral ; Note: Date Diagnosed : 12/23/2018 10:38 AM (H90.3) Not Available [facility] 4 02:33:34 Impacted cerumen in right ear 02231267737 51518 Active 2019 Impacted cerumen, right ear; Note: Date Diagnosed : 12/15/2019 4:53 PM (H61.21) Not Available [facility] 4 02:33:38 Impacted cerumen of bilateral ears 92262898961 59263 Active 2017 Impacted cerumen, bilateral ; Note: Date Diagnosed : 11/05/2017 1:06 PM (H61.23) Not Available [facility] 4 02:33:48 Problem Notes None recorded. Medical Equipment None Reported. Allergies Allergen ID Allergen Name Allergen Category Reaction Reaction Severity Criticality Documentation Date Start Date Code Code System Note Provider Name and Address Organization Details Recorded Time 73072 Substance with sulfonami de structure and antibacte rial mechanism of action (substanc e) medicatio n other Not available Not available 03/04/2024 44050 8003 SNOMED React ion: unkno wn, unspe cifie d;; Not Available [facility] 4 00:56:19 Medications Name Sig Start Date Stop Date Status Note LastModified by Organization Details LastModified Time carvedilo l 25 mg tablet TAKE 1 TABLET BY MOUTH TWICE A DAY WITH MEALS/FO OD active Not Available Not Available No t Available gabapenti n 600 mg tablet TAKE 2 TABLETS TWICE A DAY active Not Available Not Available No t Available carvedilo l 12.5 mg tablet 04/21 completed Medicati on ID: [id number] D uration Value: 90 Reason: () Brand Name: carvedil ol Send Method: E-Prescr ibed Sub s Allowed: subs OK Medic ationGen ericName : carvedil ol Not Available Not Available Not Available pravastat in 40 mg tablet TAKE 1 TABLET DAILY active Not Available Not Available No t Available diltiazem CD 180 mg capsule,e xtended release 24 hr 2018 active Medicati on ID: [id number] D uration Value: 30 Brand Name: diltiaze m HCl Send Method: E-Prescr ibed Sub s Allowed: subs OK Speci al Instruct ion: TAKE ONE CAPSULE BY MOUTH EVERY DAY Medi cationGe nericNam e: diltiaze m HCl Not Available Not Available Not Available diltiazem CD 240 mg capsule,e xtended release 24 hr TAKE 1 CAPSULE BY MOUTH DAILY active Not Available Not Available No t Available clonazepa m 0.5 mg tablet 2018 active Medicati on ID: [id number] D uration Value: 30 Brand Name: clonazep am Send Method: E-Prescr ibed Sub s Allowed: subs OK Speci al Instruct ion: TAKE 1 TABLET BY MOUTH TWICE A DAY Medi cationGe nericNam e: clonazep am Not Available Not Available Not Available glipizide ER 5 mg tablet, extended release 24 hr 2019 active Medicati on ID: [id number] D uration Value: 90 Brand Name: glipizid e Send Method: E-Prescr ibed Sub s Allowed: subs OK Speci al Instruct ion: TAKE 1 TABLET BY MOUTH TWICE A DAY Medi cationGe nericNam e: glipizid e Not Available Not Available Not Available omeprazol e 40 mg capsule,d elayed release TAKE 1 CAPSULE BY MOUTH EVERY DAY active Not Available Not Available No t Available ofloxacin 0.3 % ear drops 4 drop into both ears 2019 active Medicati on ID: [id number] D uration Value: 7 Prescri bed By Name: JADEN Corona nd Name: ofloxaci n Send Method: E-Prescr ibed Sub s Allowed: subs OK Medic ationGen ericName : ofloxaci n Not Available Not Available Not Available amlodipin e 10 mg tablet 2017 active Medicati on ID: [id number] B rand Name: amlodipi ne Send Method: E-Prescr ibed Sub s Allowed: subs OK Medic ationGen ericName : amlodipi ne Not Available Not Available Not Available glipizide ER 2.5 mg tablet, extended release 24 hr 04/21 completed Medicati on ID: [id number] D uration Value: 90 Reason: () Brand Name: glipizid e Send Method: E-Prescr ibed Sub s Allowed: subs OK Medic ationGen ericName : glipizid e Not Available Not Available Not Available metformin 1,000 mg tablet TAKE 1 TABLET TWICE A DAY active Not Available Not Available No t Available ammonium lactate 12 % topical cream APPLY TO AFFECTED AREAS OF DRY SKIN TO FEET EXCEPT FOR BETWEEN THE TOES TWICE A DAY 30 DAYS active Not Available Not Available No t Available hydrochlo rothiazid e 25 mg tablet 2017 active Medicati on ID: [id number] B rand Name: hydrochl orothiaz willis Send Method: E-Prescr ibed Sub s Allowed: subs OK Medic ationGen ericName : hydrochl orothiaz willis Not Available Not Available Not Available azelastin e 137 mcg (0.1 %) nasal spray INSTILL 1 SPRAY INTRANAS ALLY 2 TIMES A DAY ADMINIST ER INTO EACH NOSTRIL active Not Available Not Available No t Available ketoconaz ole 2 % topical cream APPLY TOPICALL Y DAILY active Not Available Not Available No t Available lisinopri l 40 mg tablet TAKE 1 TABLET BY MOUTH EVERY DAY active Not Available Not Available No t Available clotrimaz ole 1 % topical cream APPLY TO AFFECTED AREA TWICE A DAY. MAX 45GM/30D AYS active Not Available Not Available No t Available glipizide 5 mg tablet TAKE 1 TABLET BY MOUTH TWICE A DAY active Not Available Not Available No t Available buspirone 15 mg tablet 2019 active Medicati on ID: [id number] D uration Value: 90 Brand Name: buspiron e Send Method: E-Prescr ibed Sub s Allowed: subs OK Medic ationGen ericName : buspiron e Not Available Not Available Not Available metformin ER 1,000 mg tablet,ex tended release 24hr (osmotic) 2017 active Medicati on ID: [id number] B rand Name: metformi n Send Method: E-Prescr ibed Sub s Allowed: subs OK Medic ationGen ericName : metformi n Not Available Not Available Not Available duloxetin e 60 mg capsule,d elayed release TAKE 1 CAPSULE DAILY active Not Available Not Available No t Available Tradjenta 5 mg tablet 2019 active Medicati on ID: [id number] D uration Value: 90 Brand Name: Tradjent a Send Method: E-Prescr ibed Sub s Allowed: subs OK Speci al Instruct ion: TAKE 1 TABLET BY MOUTH EVERY DAY Medi cationGe nericNam e: Tradjent a Not Available Not Available Not Available Eliquis 5 mg tablet TAKE 1 TABLET BY MOUTH TWICE A DAY active Not Available Not Available No t Available Jardiance 25 mg tablet TAKE 1 TABLET BY MOUTH EVERY DAY active Not Available Not Available No t Available Trulicity 1.5 mg/0.5 mL subcutane ous pen injector active Not Available Not Available Not Available Trulicity 0.75 mg/0.5 mL subcutane ous pen injector 2019 active Medicati on ID: [id number] D uration Value: 84 Brand Name: Kristi salgado Send Method: E-Prescr ibed Sub s Allowed: subs OK Speci al Instruct ion: INJECT 0.75MG (1 SYRINGE) SUBCUTAN EOUSLY ONCE A WEEK DIRECTED Medicat ionGener icName: Kristi salgado Not Available Not Available Not Available Ozempic 1 mg/dose (4 mg/3 mL) subcutane ous pen injector INJECT 1 MG (0.75 ML) SUBCUTAN EOUSLY WEEKLY active Not Available Not Available No t Available Ozempic 0.25 mg or 0.5 mg (2 mg/3 mL) subcutane ous pen injector INJECT 0.5 MG (0.736 ML) SUBCUTAN EOUSLY EVERY WEEK active Not Available Not Available No t Available Vitals None Recorded Social History None recorded. Functional Status None recorded. Mental Status None recorded. Family History Nothing Reported. Medical History No medical history recorded. Past Encounters Encounter ID Performer Location Encounter Start Date Encounter Closed Date Diagnosis/Indication Diagnosis SNOMED-CT Code Diagnosis ICD10 Code Diagnosis Note [id number] JORGE ALVARES [facility] [place] [facility] [address] [place] [address] 11/21/2024 08:43:51 11/24/2024 10:21:47 Sensorineural hearing loss of bilateral ears 387720057 H90.3 [id number] JORGE ALVARES [facility] [place] [address] [address] 02/20/2025 08:52:52 02/24/2025 18:02:30 Sensorineural hearing loss of bilateral ears 309892833 H90.3 [id number] JORGE ALVARES [facility] [place] [address] [facility] [address] [place] [address] 03/05/2025 12:48:02 03/06/2025 09:42:07 Sensorineural hearing loss of bilateral ears 893190611 H90.3 Health Concerns Section Related Observation LastModified by Organization Detai ls LastModified Time None Recorded Concern Status LastModified by Organization Details LastModified Time None Recorded Advance Directives Directive None Recorded Payers Insurance Date Sequence Insurance Name Policy Number Policy Parish Covered Member ID Parish Member ID Guarantor Name 03/05/2025 2 [place] [id number] Gerardo Wei [id number] Gerardo Wei 03/05/2025 1 [place] [facility] Gerardo Wei [id number] Gerardo Wei Notes Date Note Type Note Provider Name and Address Organization Details Recorded Time 11/21/2024 text/html Concerns: RHA stopped working. He has been wearing his old one.Check/clean: LHA GWO before and after cleaning. RHA required a new wire and then it was working again.Adjustments: none made today. No firmware update needed today.FU: 6 months. Needs new batteries before warranty is up. Will do hearing test at this time. JORGE ALVARES [address] [facility],[address], [address], [facility] [place] [facility] 11/21/2024 09:43:29 02/20/2025 text/html Audiogram completed today showed stable hearing. Concerns: LHA has been not working for a couple weeks. RHA seems okay. Check/clean: RHA in GWO before and afte cleaning. LHA is only outputting static, microphones don't seem to be picking up sound. [employer] Operator change did not fix issue. Will need to be sent out for repair. I gave him a demo for the mean time. Adjustments: updated to new test. Changed battery in the RHA. FU: 6 months. I will call when the LHA is back from repair, I will just need the RHA dropped off to pair them together. JORGE ALVARES [address] [facility],[address], [address], [facility] [place] [facility] 02/20/2025 10:29:40 03/05/2025 text/html Returned loaner. Paired LHA to RHA. Everything was in GWO when he left the office. No charge for today's visit. JORGE ALVARES [address] [facility],[place] [address], [place], [address], [place] - [facility] 03/05/2025 13:09:07
[2025-05-04 10:25] LABS: MANUAL DIFF FLAG NO
[2025-05-04 10:42] LABS: Hematocrit 44.7 % (42.0-52.0); Hemoglobin 14.8 g/dl (14.0-18.0); Imm Gran Abs Auto 0.02 X10*3/uL (0.00-0.03); Imm Gran Pct Auto 0.2 % (0.0-0.4); Lymphocytes Absolute Auto 3.2 X10*3/uL (1.2-4.9); Mean Corpuscular HGB Conc 33.1 g/dl (31.0-36.0); Mean Corpuscular Hemoglobin 28.8 pg (27.0-33.0); Mean Corpuscular Volume 87.0 fL (80.0-98.0); NRBC Abs Auto 0.000 X10*3/uL (0.0-0.012); NRBC Pct Auto 0.0 /100WBC (0.0-0.2); Platelet Count 312 X10*3/uL (160-400); Red Blood Count 5.14 X10*6/uL (4.60-5.80); White Blood Count 8.7 X10*3/uL (4.8-10.8)
[2025-05-04 10:59] LABS: Hemoglobin A1C 154.5574 umol/L; Total Hemoglobin (HGBA1C) 3959.1161 umol/L
[2025-05-04 11:14] LABS: Alanine Aminotransferase 19 U/L (0-40); Albumin Level 4.0 g/dL (3.5-5.0); Alkaline Phosphatase 77 U/L (39-117); Anion Gap 12 (12-20); Aspartate Amino Transferase 22 U/L (5-37); Blood Urea Nitrogen 14 mg/dL (9-16); Calcium 9.1 mg/dL (8.4-10.2); Carbon Dioxide 31 mmol/L (22-29); Chloride 100 mmol/L (96-108); Cholesterol 137 mg/dL (<200); Estimated Glomerular Filt Rate > 60; HDL Cholesterol 48 mg/dL (>40); Potassium 4.2 mmol/L (3.3-5.1); Sodium 139 mmol/L (135-145); Total Protein 6.4 g/dL (6.5-8.0); Triglycerides 186 mg/dL (<150)
[2025-05-04 11:28] LABS: Microalbum/Creatinine Ratio Ur 24.3 ug/mg cr (<30)
== END 2025-05-04 07:50 | disposition home or self-care (01) ==
LOC: HO.HMGCLDS 07:49
PROVIDERS: PCP Internal Medicine; Visit Provider Internal Medicine
DX: E11.9 Type 2 diabetes mellitus without complications (principal); I10 Essential (primary) hypertension; E78.5 Hyperlipidemia, unspecified
CPT/HCPCS: 36415; 80053; 80061; 82043; 82570; 83036; 84443; 85025

== ENCOUNTER 2025-05-06 12:39 | Outpatient (AMB) | payer MEDICARE, SELFPAY ==
--- OUTSIDE RECORDS SUMMARY | 2024-12-31 04:45 | XMS_ITS ---
Author Organization [facility] Address [address] [place] [address] Care Team Providers Care Gis Database Administrator Name Role Phone Charles SEQUEIRA, Kyung Primary Care Provider Unavaila Jacek Otoole Unavailable [phone] Frank Encounters Encounter Location Date Provider Diagnosis [address] [address] 12/31/2024 Jacek Parks Plan Of Treatment Next Appt Details Provider Name:Jacek Parks , 05/25/2025 09:00:00 AM, [address] [place] [address], [phone], Progress Notes * PABLOGerardo GDOB:1945 (79 yo M)Acc No.[id number]:12/31/2024 Progress Note Patient: Gerardo WEN Provider: Kevan Parks DPM :1945 A ge:79 Y S ex:Male Date:12/31/2024 Address:[address] [place], [place] Pcp:Kyung Soto MD Subjective: * Chief [...] 0 12/31/2024 Generated for Дмитрий Rice on: 0 05/06/2025 01:34 PM EDT
[2025-05-06 12:44] VITALS: BP 120/78; PULSE 77; RESP 18; TEMP 36.8; O2SAT 97; BMI 28.6
--- NOTE | 2025-05-06 12:44 | A.OFFPC_ITS ---
Vital Signs 05/06/25 12:44 Height 6 ft 1 in Weight 217 lb BMI 28.6 BP 120/78 Blood Pressure Location Lt brachial Position Sitting Respiration 18 Pulse 77 Pulse Source Pulse Oximeter Temp 98.2 F Temp Source Oral Pulse Oximetry (%) 97 Oxygen Delivery Method Room Air Intake Visit Reasons: Diabetes followup Intake Note: Pt is here today for a follow up visit on DM. Allergies amoxicillin (Augmentin) Allergy (Unknown, Verified 05/06/25 12:57) diarrhea clavulanic acid (Augmentin) Allergy (Unknown, Verified 05/06/25 12:57) diarrhea Sulfa (Sulfonamide Antibiotics) (SULFA(SULFONAMIDE ANTIBIOTICS)) Allergy (Unknown, Verified 05/06/25 12:57) Swelling Medication List - Last Reconciled 05/06/25 by Kyung Soto MD apixaban (Eliquis) 5 mg PO BID azelastine 1 spray intranasal BID blood sugar diagnostic QD carvedilol 25 mg PO BID clotrimazole 1% appl topical diltiazem HCl CD 240 mg PO DAILY duloxetine 60 mg PO DAILY empagliflozin (Jardiance) 25 mg PO DAILY gabapentin 1,200 mg (2 x 600 mg) PO BID glipizide 5 mg PO .QD ketoconazole 2% 1 appl topical DAILY lancets (OneTouch UltraSoft Lancets) qd lisinopril 40 mg PO DAILY metformin 1,000 mg PO BID omeprazole 40 mg PO DAILY Ozempic (semaglutide) 1 mg (0.75 mL) subcut QWEEK NS pravastatin 40 mg PO DAILY Tobacco use date assessed: 05/06/25 Fall risk assessment: No Falls in past year Last assessed Fall Risk: 05/06/25 Dental Screening Dental Screen Date: 05/06/25 Did you have a dental visit in the last 12 months?: Yes Did you have a dental problem in the last 6 months where you did not have access to dental care?: No Was dental information given to patient?: Patient has dentist HPI Diabetes followup HPI Details Follow-up of type 2 diabetes hypertension hyperlipidemia. [facility] Medical History Annual physical exam Hyponatremia Anxiety Hyperkalemia Hyperlipidemia HTN (hypertension) DM type 2 (diabetes mellitus, type 2) Surgical History History of laparoscopic cholecystectomy History of cataract surgery Family History Father No problems noted. Mother Mental health disorder Son No problems noted. Daughter No problems noted. Daughter No problems noted. Daughter No problems noted. Daughter No problems noted. Social History Housing: House Alcohol intake: never Patient Tobacco Use Status: Never used Tobacco e-Cigarette/Vaping Use: Never Used Second Hand Smoke Exposure: No service: Yes Current occupational status: retired Cognitive needs: No Hearing needs: Yes Vision needs: Yes Questionnaire PHQ-9 Over the last 2 weeks, how often have you been bothered by any of the following problems? 1. Little interest or pleasure in doing things: not at all 2. Feeling down, depressed, or hopeless: not at all 3. Trouble falling or staying asleep, or sleeping too much: not at all 4. Feeling tired or having little energy: not at all 5. Poor appetite or overeating: not at all 6. Feeling bad about yourself - or that you are a failure or have let yourself or your family down: not at all 7. Trouble concentrating on things, such as reading the newspaper or watching television: not at all 8. Moving or speaking so slowly that other people could have noticed. Or the opposite - being so fidgety or restless that you have been moving around a lot more than usual: not at all 9. Thoughts that you would be better off or of hurting yourself in some way: not at all Total score: 0 Depression Screening Interpretation: Negative Depression Screening Done: Yes 31150 - PHQ-9 Billing: Yes Source: Developed by Drs. Fidencio Carl, Loren Quintanilla, Shawn Khan and colleagues, with an educational alyssia from [employer]. Thrive Questionnaire Date Thrive assessed: 05/06/25 I am a: Patient Within the past 12 months, did the food you bought not last and you didn't have the money to get more?: Never true Within the past 12 months, did you worry whether your food would run out before you got money to buy more?: Never true Do you have trouble paying for medicines?: No Do you have trouble getting transportation to medical appointments?: No Do you have trouble paying your heating and electricity bill?: No Do you have trouble taking care of your child, family member or friend?: No Do you have trouble with day-to-day activities such as bathing, preparing meals, shopping, managing finances, etc.?: No Are you currently unemployed and looking for a job?: No Are you interested in more education?: No Please select the resources that you would like help with: None Currently or been in a relationship where the following occur: No concerns reported THRIVE Score: 0 AUDIT C Alcohol Use Questionnaire (AUDIT-C) 1. How often do you have a drink containing alcohol?: Monthly or less 2. How many drinks containing alcohol do you have on a typical day when you are drinking?: 1 or 2 3. How often do you have six or more drinks on one occasion?: Never Total Score: 1 SELENA-7 AMB Questionnaire SELENA-7 Date SELENA - 7 assessed: 05/06/25 Feeling nervous, anxious, or on edge: 0 = Not at all Not being able to stop or control worryin = Not at all Worrying too much about different things: 0 = Not at all Trouble relaxin = Not at all Being so restless that it is hard to sit still: 0 = Not at all Becoming easily annoyed or irritable: 0 = Not at all Feeling afraid as if something awful might happen: 0 = Not at all Total SELENA-7 score (0-4 normal; 5-9 mild; 10-14 moderate; 15-21 severe): 0 Source: Developed by Drs. Fidencio Carl, Loren Quintanilla, Shawn Khan and colleagues, with an educational alyssia from [employer]. SELENA-7 Assessment Billing SELENA-7 Assessment Tool: SELENA-7 Assessment 56615 Review of Systems Const All systems reviewed & are unremarkable except as noted in HPI and below ENT Reports no additional complaints Resp Reports no additional complaints GI Reports no additional complaints Reports no additional complaints Musc Reports no additional complaints Physical exam (Primary Care) Vital Signs: Last Vital Signs Temp 98.2 F 05/06/25 12:44 Pulse 77 05/06/25 12:44 Resp 18 05/06/25 12:44 BP 120/78 05/06/25 12:44 Pulse Ox 97 05/06/25 12:44 Oxygen Delivery Method Room Air 05/06/25 12:44 BMI result Body Mass Index 28.6 Tobacco/Smoking Status: Tobacco use Status Tobacco use date assessed 05/06/25 05/06/25 13:02 Patient Tobacco Use Status Never used Tobacco 05/06/25 12:45 e-Cigarette/Vaping Use Never Used 05/06/25 12:45 PHQ-9: PHQ-9 Score PHQ-9: Total score 0 05/06/25 13:34 Depression Screening Interpretation: Negative Thrive Assessment: Date of Thrive Assessment Date Thrive assessed 05/06/25 05/06/25 12:45 Currently or been in a relationship where the following occur: No concerns reported Const General: no acute distress HENMT Face and sinus: Yes normal facial exam Neck Neck: Yes supple Resp Effort & Inspection: normal respiratory effort Auscultation: clear to auscultation bilaterally Cardio Rhythm: regular rhythm Heart sounds: S1 normal heart sound present and S2 normal heart sound present GI Inspection: Yes normal to inspection Palpation (GI): Soft to palpation Percussion: Yes normal to percussion Immunizations pneumoc 20-baldemar conj-dip cr(PF) 0.5 mL IM syringe Performing Provider: Kyung Soto MD Performing Location: [facility] [place] [facility] [place] Administered by: CHE Coreas on 05/06/25 13:34 Dose Route Admin Location Dispensed Lot Number Expiration Date [facility][NOTE 3] Vat Washer 0.5 mL IM Left Deltoid 0.5 mL [id number] 04/20/26 [employer] Total Dispensed Waste 0.5 mL 0 % VIS Given Date VIS Provided VIS Publication Date 05/06/25 Single Vaccine 25 Eligibility Eligibility Date Funding Source Not [facility] Eligible 05/06/25 Private Coding Level of Care Code Est Pt Level 4 (30974) Diagnoses HTN (hypertension) I10 Hyperlipidemia E78.5 DM type 2 (diabetes mellitus, type 2) E11.9 Additional Codes SELENA-7 Assessment Billing - SELENA-7 Assessment Tool: SELNEA-7 Assessment 06974 ([id number]) PHQ-9 - 94709 - PHQ-9 Billing: Yes ([id number]) Assessment & Plan Assessment & Plan (1) HTN (hypertension): Code(s): I10 - Essential (primary) hypertension Category: Medical Plan: Continue current medications (2) Hyperlipidemia: Code(s): E78.5 - Hyperlipidemia, unspecified Category: Medical Plan: Continue statin (3) DM type 2 (diabetes mellitus, type 2): Code(s): E11.9 - Type 2 diabetes mellitus without complications Category: Medical Plan: A1c is 5.7, continue ADA diet increase physical activity continue Ozempic Jardiance and metformin . Patient will discontinue glipizide he will follow-up in 4 months with a fasting labs Orders: Orders Comprehensive [place]. Panel Fast 4 Months E11.9 - Type 2 diabetes mellitus without complications, E78.5 - Hyperlipidemia, unspecified, I10 - Essential (primary) hypertension Hemoglobin A1c 4 Months E11.9 - Type 2 diabetes mellitus without complications, E78.5 - Hyperlipidemia, unspecified, I10 - Essential (primary) hypertension Microalbumin, Random (w Creat) 4 Months E11.9 - Type 2 diabetes mellitus without complications, E78.5 - Hyperlipidemia, unspecified, I10 - Essential (primary) hypertension Lipid Panel 4 Months E11.9 - Type 2 diabetes mellitus without complications, E78.5 - Hyperlipidemia, unspecified, I10 - Essential (primary) hypertension Pneumococcal 20 Immunization Today Z23 - Encounter for immunization Medications: New blood sugar diagnostic (OneTouch Ultra Test strips) 1 qd 100 ea 3RF blood-glucose meter (OneTouch Ultra2 Meter) As directed 1 ea 0RF Refilled duloxetine 60 mg PO DAILY 90 caps 3RF pravastatin 40 mg PO DAILY 90 tabs 3RF gabapentin 1,200 mg (2 x 600 mg) PO BID 360 tabs 3RF empagliflozin (Jardiance) 25 mg PO DAILY 90 tabs 3RF Discontinued glipizide Discontinued Reason: Doctor's Order 5 mg PO .QD 90 tabs 3RF
== END 2025-05-06 13:36 | disposition home or self-care (01) ==
LOC: HO.HMCC 12:40
PROVIDERS: PCP Internal Medicine; Visit Provider Internal Medicine
DX: I10 Essential (primary) hypertension (principal); E78.5 Hyperlipidemia, unspecified; E11.9 Type 2 diabetes mellitus without complications; Z23 Encounter for immunization

== ENCOUNTER → 2025-05-06 12:39 | Outpatient (BNVA) | payer MEDICARE, SELFPAY | PROVIDERS: PCP Internal Medicine; Visit Provider Internal Medicine | DX: Z23 Encounter for immunization (principal); I10 Essential (primary) hypertension; E11.9 Type 2 diabetes mellitus without complications; E78.5 Hyperlipidemia, unspecified | CPT/HCPCS: 90471; 90677; 96127; 99212 ==

== ENCOUNTER 2025-08-31 08:28 | Outpatient (REF) | payer MEDICARE, SELFPAY ==
--- OUTSIDE RECORDS SUMMARY | 2024-12-31 03:45 | XMS_ITS ---
Author Organization [facility] Address [address] [place] [address] Care Team Providers Care Petroleum Refinery Worker Name Role Phone Charles SEQUEIRA, Kyung Primary Care Provider Unavaila Jcaek Otoole Unavailable [phone] Frank Encounters Encounter Location Date Provider Diagnosis [address] [address] 12/31/2024 Jacek Parks Plan Of Treatment Next Appt Details Provider Name:Jacek Parks , 09/02/2025 09:00:00 AM, [address] [place] [address], [phone], Progress Notes * PABLOGerardo GDOB:1945 (80 yo M)Acc No.[id number]:12/31/2024 Progress Note Patient: Gerardo WEN Provider: Kevan Parks DPM :1945 A ge:79 Y S ex:Male Date:12/31/2024 Address:[address] [place], [place] Pcp:Kyung Soto MD Subjective: * Chief [...] 0 12/31/2024 Generated for Дмитрий Rice on: 10/31/2024 08:49 AM EST
--- OUTSIDE RECORDS SUMMARY | 2025-08-31 08:50 | XMS_ITS | Data Portability ---
Author Organization [place] [facility], Allergy Address [address] [place] [id number] Care Team Providers Care Food Quality Tester Name Role Phone [id number] Primary Care Provider [phone] Assessment No assessment recorded. Plan of Treatment [...] Name and Address Organization Details Recorded Time Impacted cerumen of bilateral ears [id number] 98368 Active 2017 Impacted cerumen, bilateral ; Note: Date Diagnosed : 11/05/2017 1:06 PM (H61.23) Not Available [employer] 4 02:33:48 Sensorine ural hearing loss of bilateral ears [id number] Active 2018 Sensorine ural hearing loss, bilateral ; Note: Date Diagnosed : 12/23/2018 10:38 AM (H90.3) Not Available [facility] 4 02:33:34 Impacted cerumen in right ear [id number] 82867 Active 2019 Impacted cerumen, right ear; Note: Date Diagnosed : 12/15/2019 4:53 PM (H61.21) Not Available Count includes the [facility] 4 02:33:38 Otorrhagi a of right ear [id number] 19542 Active 2019 Otorrhagi a, right ear; Note: Date Diagnosed : 06/18/2020 10:22 AM (H92.21) Not Available Count includes the [facility] 4 02:33:32 Problem Notes None recorded. Medical Equipment None Reported. Allergies Allergen ID Allergen Name Allergen Category Reaction Reaction Severity Criticality Documentation Date Start Date Code Code System Note Provider Name and Address Organization Details Recorded Time 99166 Substance with sulfonami de structure and antibacte rial mechanism of action (substanc e) medicatio n other Not available Not available 03/04/2024 55763 8003 SNOMED React ion: unkno wn, unspe cifie d;; Not Available Count includes the [facility] 4 00:56:19 Medications Name Sig Start Date [...] mg tablet 04/21 completed Medicati on ID: [id number] D uration Value: 90 Reason: () Brand Name: carvedil ol Send Method: E-Prescr ibed Sub s Allowed: subs OK Medic ationGen ericName : carvedil ol Not Available Not Available Not Available pravastat in 40 mg tablet TAKE 1 TABLET DAILY active Not Available Not Available No t Available diltiazem CD 180 mg capsule,e xtended release 24 hr 2018 active Medicati on ID: [id number] D uration Value: 30 Brand Name: diltiaze [...] mg tablet 2018 active Medicati on ID: [id number] D uration Value: 30 Brand Name: clonazep am Send Method: E-Prescr ibed Sub s Allowed: subs OK Speci al Instruct ion: TAKE 1 TABLET BY MOUTH TWICE A DAY Medi cationGe nericNam e: clonazep am Not Available Not Available Not Available glipizide ER 5 mg tablet, extended release 24 hr 2019 active Medicati on ID: [id number] D uration Value: 90 Brand Name: glipizid [...] both ears 2019 active Medicati on ID: [id number] D uration Value: 7 Prescri bed By Name: JADEN Corona nd Name: ofloxaci n Send Method: E-Prescr ibed Sub s Allowed: subs OK Medic ationGen ericName : ofloxaci n Not Available Not Available Not Available amlodipin e 10 mg tablet 2017 active Medicati on ID: [id number] B rand Name: amlodipi ne Send Method: E-Prescr ibed Sub s Allowed: subs OK Medic ationGen ericName : amlodipi ne Not Available Not Available Not Available glipizide ER 2.5 mg tablet, extended release 24 hr 04/21 completed Medicati on ID: [id number] D uration Value: 90 Reason: () Brand [...] mg tablet 2017 active Medicati on ID: [id number] B rand Name: hydrochl orothiaz willis Send [...] mg tablet 2019 active Medicati on ID: [id number] D uration Value: 90 Brand Name: buspiron e Send Method: E-Prescr ibed Sub s Allowed: subs OK Medic ationGen ericName : buspiron e Not Available Not Available Not Available metformin ER 1,000 mg tablet,ex tended release 24hr (osmotic) 2017 active Medicati on ID: [id number] B rand Name: metformi n Send Method: E-Prescr ibed Sub s Allowed: subs OK Medic ationGen ericName : metformi n Not Available Not Available Not Available duloxetin e 60 mg capsule,d elayed release TAKE 1 CAPSULE DAILY active Not Available Not Available No t Available Tradjenta 5 mg tablet 2019 active Medicati on ID: [id number] D uration Value: 90 Brand Name: Tradjent [...] pen injector 2019 active Medicati on ID: [id number] D uration Value: 84 Brand Name: Kristi [...] Diagnosis SNOMED-CT Code Diagnosis ICD10 Code Diagnosis IMO Codes Diagnosis Note [id number] JORGE ALVARES [place] [facility] [address] [place] [address] 11/21/2024 08:43:51 11/24/2024 10:21:47 Sensorineural hearing loss of bilateral ears [id number] H90.3 [id number] JORGE ALVARES [place] [address] [address] 02/20/2025 08:52:52 02/24/2025 18:02:30 Sensorineural hearing loss of bilateral ears [id number] H90.3 [id number] JORGE ALVARES [place] [address] [address] 03/05/2025 12:48:02 03/06/2025 09:42:07 Sensorineural hearing loss of bilateral ears [id number] H90.3 Health Concerns Section Related Observation LastModified by Organization Evelyn bergman LastModified Time None Recorded Concern Status LastModified by Organization Details LastModified Time None Recorded Advance Directives Directive None Recorded Payers Insurance Date Sequence Insurance Name Policy Number Policy Parish Covered Member ID Parish Member ID Guarantor Name 03/05/2025 2 [place] [id number] Gerardo Wei [id number] Gerardo Wei 03/05/2025 1 MED[place] [facility] Gerardo Wei [id number] Gerardo Wei Notes Date Note Type [...] test at this time. JORGE ALVARES [address], [address], [facility] - [facility] 11/21/2024 09:43:29 02/20/2025 text/html Audiogram completed today showed stable hearing. Concerns: LHA has been not working for a couple weeks. RHA seems okay. Check/clean: RHA in GWO before and afte cleaning. LHA is only outputting static, microphones don't seem to be picking up sound. Donor Services Team Leader change did not fix issue. Will need to be sent out for repair. I gave him a demo for the mean time. Adjustments: updated to new test. Changed battery in the RHA. FU: 6 months. I will call when the LHA is back from repair, I will just need the RHA dropped off to pair them together. JORGE ALVARES 100 [facility],[address], [address], [facility] 02/20/2025 10:29:40 03/05/2025 text/html Returned loaner. Paired LHA to RHA. Everything was in GWO when he left the office. No charge for today's visit. JORGE ALVARES 100 [facility],[place] [address], [place], [address], [facility] - [facility] 03/05/2025 13:09:07
[2025-08-31 10:46] LABS: Alanine Aminotransferase 10 U/L (0-40); Albumin Level 4.1 g/dL (3.5-5.0); Alkaline Phosphatase 90 U/L (39-117); Anion Gap 13 (12-20); Aspartate Amino Transferase 19 U/L (5-37); Blood Urea Nitrogen 11 mg/dL (9-16); Calcium 9.6 mg/dL (8.4-10.2); Carbon Dioxide 27 mmol/L (22-29); Chloride 100 mmol/L (96-108); Cholesterol 140 mg/dL (<200); Estimated Glomerular Filt Rate > 60; HDL Cholesterol 51 mg/dL (>40); Potassium 3.9 mmol/L (3.3-5.1); Sodium 136 mmol/L (135-145); Total Protein 6.8 g/dL (6.5-8.0); Triglycerides 144 mg/dL (<150)
[2025-08-31 11:56] LABS: Microalbum/Creatinine Ratio Ur 35.3 ug/mg cr (<30)
== END 2025-08-31 08:29 | disposition home or self-care (01) ==
LOC: HO.HMGCLDS 08:28
PROVIDERS: PCP Internal Medicine; Visit Provider Internal Medicine
DX: I10 Essential (primary) hypertension (principal); E78.5 Hyperlipidemia, unspecified; E11.9 Type 2 diabetes mellitus without complications
CPT/HCPCS: 36415; 80053; 80061; 82043; 82570; 83036

== ENCOUNTER 2025-09-03 09:38 | Outpatient (AMB) | payer MEDICARE, SELFPAY ==
--- OUTSIDE RECORDS SUMMARY | 2024-12-31 03:45 | XMS_ITS ---
Author Organization [facility] Address [address] [place] [address] Care Team Providers Care Sales Professional Name Role Phone Charles SEQUEIRA, Kyung Primary Care Provider Unavaila Jacek Otoole Unavailable [phone] Frank Encounters Encounter Location Date Provider Diagnosis [address] [address] 12/31/2024 Jacek Parks Plan Of Treatment Next Appt Details Provider Name:Jacek Parks , 12/02/2025 11:00:00 AM, [address] [place] [address], [phone], Progress Notes * ERIBERTOGerardo GDOB:1945 (80 yo M)Acc No.[id number]:12/31/2024 Progress Note Patient: Gerardo WEN Provider: Kevan Parks DPM :1945 A ge:79 Y S ex:Male Date:12/31/2024 Address[address] [place], [place]-[address] Pcp:Kyung Soto MD Subjective: * Chief Complaints: * [address] Frank. * Medical History: Objective: * Vitals: Assessment: Plan: * Treatment: * Images: * The named appointment provid er may or may not be the originator of this progress note, and it is not deemed complete until electronically signed by the appointment provider. Sign off status: Pending * Provider: Kevan Parks DPM Date: 0 12/31/2024 Generated for Дмитрий Rice on: 11/03/2024 11:09 AM EST
--- OUTSIDE RECORDS SUMMARY | 2025-09-02 04:00 | XMS_ITS ---
[facility] Organization [facility] Address [address] [facility] [place] [address] Care Team Providers Care Edge Runner Name Role Phone Kyung Soto MD Primary Care Provider Unavaila Jacek Otoole Unavailable [phone] Allergies Allergen (clinical drug ingredient) Drug/Non Drug [...] AREA TWICE A DAY; Duration: 30 Active Azelastine HCl Activ e Trulicity Not-Taking glipiZIDE ER 5 MG 1 tablet Orally Once a day Not-Taking Extra Depth Orthopedic Shoes (1 Pair) with Customized Heat Molded Multidensity Innersoles (3 Pair) as directed Dx: NIDDM/Polyneuropathy (E11.42), Hammertoe Foot Deformity (M20.41,M20.42), Preulcerative Skin Lesion(s) (L85.1 Active Ammonium Lactate 12 % 1 application Externally to affected areas of dry skin to feet except for between the toes Twice a day; Duration: 30 days Active Fish Oil 1 capsule Orally Onc e a day; Duration: 30 day(s) Active Pravastatin Sodium 40 mg Active Omeprazole 40 mg Act oskar Multivitamins as directed Orally Active Lisinopril 40 mg Act oskar Gabapentin 600 mg 2 tabs Twice a day Active Eliquis 5 MG Orally Active dilTIAZem HCl Active metFORMIN HCl 1000 MG Orally Twice a day Active Carvedilol 25 MG Orally twice daily Active Naproxen 500 MG TAKE 1 TABLET BY MOUTH TWICE A DAY WITH FOOD Oral; Duration: 30 Not-Taking Jardiance Active DULoxetine HCl 60 MG 1 capsule Orally On ce a day Active Ozempic Active hydroCHLOROthiazide 25 mg Not-Taking Cymbalta 60 mg 1 capsule Orally onc e a day; Duration: 30 day(s) Not-Taking glipiZIDE 5 MG 1 tablet Orally Once a day Not-Taking Astelin 137 MCG/SPRAY 1 puff in each nostril Nasally Twice a day; Duration: 30 day(s) Not-Taking busPIRone HCl Not-Ta munir clonazePAM 0.5 MG 1 tablet Orally twic e a day Not-Taking Social History Tobacco Use: Social History Observation Description Date Details (start date - stop date) Never Smoker NA - NA Tobacco use other than smoking: Question Answer Notes Are you an other tobacco user? No Tobacco Control (Standard) Question Answer Notes Tobacco use: Nonsmoker Additional Findings: Tobacco non-user Current no nsmoker AUDIT-C (Standard) Question Answer Notes Did you have a drink containing alcohol in the p ast year? No Points 0 Interpretation Negative Vital Signs Height 6 ft 1 in in 09/02/2025 Weight 219 lbs 09/02/2025 BMI 28.89 kg/m2 09/02/2025 Blood pressure systolic 120 mm Hg 09/02/20 25 Blood pressure diastolic 72 mm Hg 025 Procedures Procedure Date Ordered Date Performed Result Body Sit e 12809-[id number] NAIL, 6 OR MORE 09/02/2025 N/A [id number] SKIN LESIONS, OVER 4 09/02/2025 N/A Encounters Encounter Location Date Provider Diagnosis [facility] [place] [address] [address] 09/02/2025 Jacek Parks Type 2 diabetes mellitus with diabetic polyneuropathy E11.42 and Tinea unguium B35.1 Assessments Encounter Date Diagnosis (ICD Code) Assessment Notes Treatment Notes Treatment Clinical Notes Section Notes 09/02/2025 Type 2 diabetes mellitus with diabetic polyneuropathy (ICD-10 - E11.42) 09/02/2025 Tinea unguium (ICD-10 - B35.1) Plan Of Treatment Pending Test Test Name Order Date [id number] NAIL, 6 OR MORE 09/02/2025 [id number] SKIN LESIONS, OVER 4 09/02/20 25 Next Appt Details Follow Up: prn, Reason: Provider Name:Jacek Parks , 12/02/2025 11:00:00 AM, [address] [facility], [address], [place], [address], Procedure Notes * Category Sub-Category Detail Notes Debride Nail 6-10 Nail debridement Due to the cl inical pathology outlined in the exam findings, performance of this nail treatment is medically necessary as its management by an unskilled/untrained nonprofessional would put this patients foot and overall health at risk. Therefore, debridement to affected nail(s), as described in exam ( TA, T1, T2, T3, T4, T5, T6, T7, T8, T9 ), was performed exclusively by the physician of record to reduce/remove overall nail length, girth, thickness, subungual debris, and necrotic tissue, by manual and/or electrical means through the use of a nail nipper and/or dremel-type cutter grinder, to a more viable healthy nail [...] to maintain effectiveness in symptomatic relief - 11738 Keratoma Treatment Parring or Cutting o f Benign Hyperkeratotic Lesion(s) (-57) More than 4 Lesions - Due to the at risk nature of the patients medical condition as documented in the exam findings, performance of this keratoderma treatment is medically necessary as its management by an unskilled/untrained nonprofessional would put this patients foot and overall health at risk. Therefore, the benign hyperkeratotic lesions, (12) in total, locations as stated and described in the exam ( Medial, IPJ, TA, Medial, IPJ, T5, SUB MTH (s), 1, B/L , SUB MTH (s), 2, B/L, SUB MTH (s), 3, B/L, SUB MTH (s), 5, B/L , Plantar, Heel, B/L ), were pared, and/or cut utilizing a sterile 15 blade, tissue nippers, and/or power dremel instrumentation by the physician of record - 12494 Progress Notes * Gerardo WEI GDOB:1945 (80 yo M)Acc No.[id number]:09/02/2025 Progress Note Patient: Gerardo WEN Provider: Kevan Parks DPM :1945 A ge:80 Y S ex:Male Date:09/02/2025 Address:[address] [place], [place] [id number] Pcp:Kyung Soto MD Subjective: * Chief Complaints: * A t Risk Footcare * HPI: A t Risk footcare: Pt States Last PCP Visit: D ate 0 05/18/2025 * ROS: G eneral/Constitutional: Nausea d enies. V omiting d enies. H silke Thirst d enies. L oss appetite d enies. C hills d enies. F atigue d enies.?Fever d enies. N ight Sweats d enies. U nexplained weight loss d enies. O phthalmologic: Blurred vision d enies. R ed eye d enies. ? H EENTM: Dentures d enies. D izziness d enies. G lasses/contacts a dmits. R etinopathy d enies. B lurred/double vision d enies. T MJ?denies. D ischarge/drainage d enies. I mplants d enies. H jed of hearing admits. D ifficulty chewing/swallowing/speaking d enies. N ose bleeds d enies.?Sore mouth d enies. S wollen glands d enies. R espiratory: On Oxygen d enies. P neumonia/pleurisy d enies.?Bronchitis d enies. E mphysema d enies. C oughing d enies. C ough blood?denies. S hortness of breath d enies. W heezing d enies. C ardiovascular: Pacemaker d enies. M SPECIAL SERVICE REPRESENTATIVE d enies. W PW d enies. C HF d enies. H eart attack d enies. S eptal defect d enies. R apid beat d enies. C hest pain d enies. A trial Fib. d enies. M urmur/Palpitations d enies. G astrointestinal: Hemorrhoids d enies. S tomach/Abdominal pain d enies. D ark blood stool d enies. I rritable bowel d enies. C onstipation d enies. D iarrhea d enies. V omiting d enies. H ematology: Swelling d enies. B ruising a dmits, on anticoagulants. B leeding problem a dmits, on anticoagulants. G enitourinary: Blood urine d enies. F requent/Painfu/urination/bladder control d enies. K idney stones d enies. I nfection (UTI) d enies. N ephropathy d enies. M usculoskeletal: Hammertoes a dmits. B unions a dmits. S coliosis/kyphosis d enies. M uscle cramps / walking d enies. G eneralized aches and pains?denies. W eakness d enies. I nteg.: [place] d enies. S cars d enies. C orns/calluses?admits. I ngrown nails a dmits. P ainful nails d enies. R ashes d enies. N eurologic: Difficulty sleeping d enies. B ipolar d enies. B rain disorder d enies. B alance trouble d enies. C onfusion d enies. F ainting/blackouts d enies. H eadache d enies. T remors d enies. * Medical History: * Surgical History: e lbow sx 1984prostate surgery 06/2012eye surgery 12/07/2015gall bladder 06/30/2016left knee replacement 12/28/2016skin cancer, cheek * Hospitalization/Major Diagno stic Procedure: B aystate- Dehydration and A-fib 01/2018 * Family History: M other: , diagnosed with Unspecified heart disease. F ather: . D aughter(s): alive. S on(s): alive. S pouse: alive. P aternal Grand Mother: diagnosed with Diabetic - NIDDM, Other malignant neoplasm of unspecified site. P aternal Grand Father: diagnosed with Family history of arthritis. 1 son(s) , 4 daughter(s) . . * Social History: T obacco Use: T obacco use other than smoking A re you an other tobacco user? N o Tobacco Control (Standard) T obacco use: N onsmoker A dditional Findings: Tobacco non-user C urrent nonsmoker D rugs/Alcohol: D rugs H ave you used drugs other than those for medical reasons in the past 12 months? N o M iscellaneous: C affeine: yes, frequency:, 2-3 cups per day. Children: yes, 5. Exercise: no. Marital status: . Occupation: Retired. D rug/Alcohol: A JORGE-C (Standard) D id you have a drink containing alcohol in the past year? N o P oints 0 I nterpretation N egative * Medications: T akingOzempic DULoxetine HCl 60 MG Capsule Delayed Release Particles 1 capsule Orally Once a day Jardiance Carvedilol 25 MG Tablet Orally twice daily dilTIAZem HCl Eliquis 5 MG Tablet Orally Gabapentin 600 mg 2 tabs Twice a day Lisinopril 40 mg metFORMIN HCl 1000 MG Tablet Orally Twice a day Multivitamins Tablet as directed Orally Omeprazole 40 mg Pravastatin Sodium 40 mg Fish Oil Capsule 1 capsule Orally Once a day Ammonium Lactate 12 % Cream 1 application Externally to affected areas of dry skin to feet except for between the toes Twice a day Clotrimazole 1 % Cream APPLY 1 APPLICATION TO AFFECTED AREA TWICE A DAY Extra Depth Orthopedic Shoes (1 Pair) with Customized Heat Molded Multidensity Innersoles (3 Pair) as directed Dx: NIDDM/Polyneuropathy (E11.42), Hammertoe Foot Deformity (M20.41,M20.42), Preulcerative Skin Lesion(s) (L85.1 Azelastine HCl Taking Ozempic Taking DULoxetine HCl 60 MG Capsule Delayed Release Particles 1 capsule Orally Once a day Taking Jardiance Taking Carvedilol 25 MG Tablet Orally twice daily Taking dilTIAZem HCl Taking Eliquis 5 MG Tablet Orally Taking Gabapentin 600 mg 2 tabs Twice a day Taking Lisinopril 40 mg Taking metFORMIN HCl 1000 MG Tablet Orally Twice a day Taking Multivitamins Tablet as directed Orally Taking Omeprazole 40 mg Taking Pravastatin Sodium 40 mg Taking Fish Oil Capsule 1 capsule Orally Once a day Taking Ammonium Lactate 12 % Cream 1 application Externally to affected areas of dry skin to feet except for between the toes Twice a day Taking Clotrimazole 1 % Cream APPLY 1 APPLICATION TO AFFECTED AREA TWICE A DAY Taking Extra Depth Orthopedic Shoes (1 Pair) with Customized Heat Molded Multidensity Innersoles (3 Pair) as directed Dx: NIDDM/Polyneuropathy (E11.42), Hammertoe Foot Deformity (M20.41,M20.42), Preulcerative Skin Lesion(s) (L85.1 Taking Azelastine HCl Not- Taking/PRNglipiZIDE ER 5 MG Tablet Extended Release 24 Hour 1 tablet Orally Once a day Trulicity clonazePAM 0.5 MG Tablet 1 tablet Orally [...] List reviewed and reconciled with the patientNot-Taking/PRN glipiZIDE ER 5 MG Tablet Extended Release 24 Hour 1 tablet Orally Once a day Not-Taking/PRN Trulicity Not-Taking/PRN clonazePAM 0.5 MG Tablet 1 tablet [...] reviewed and reconciled with the patient * Allergies: S ulfa Antibiotics: dontrell[Allergies Verified] Objective: * Vitals: H t: 6 ft 1 in, Wt: 219, BMI: 28.89, Shoe size: 13, BP: 120/72 mm Hg, BS: not taken, Wt-k.34 kg. * P ast Orders: L ab:HEMOGLOBIN A1C (GLYCOHEMOGLOBIN) (Order Date - 05/18/2025) (Collection Date & Time - 05/19/2025 08:49 AM) Value Reference Range HEMOGLOBIN A1C % (HH) 5.7 * Examination: O phthalmology Referral: DIABETES EYE EXAM P rocedure Performed: Y es D ate of Exam Performed 0 05/19/2025 D iabetic Retinopathy Screening: Y es R etinal Screening Performed: Y es F indings of Diabetic Eye Exam: n o retinopathy N eurological: SENSORY: N eurological exam demonstrates a loss of protective sensation by an absence of tested sensitivity to 5.07 [place]ona monofilament at 2 or more sites out of 5 total locations, each foot. N ails: NAILS are: E longated, overgrown, dystrophic, lytic, greater than 3mm thick, discolored and friable with crumbly malodorous subungual debris , TA, T1, T2, T3, T4, T5, T6, T7, T8, T9. D ermatologic: SKIN FINDINGS: S kin exam reveals Keratotic lesion(s) located at, Medial, IPJ, TA, Medial, IPJ, T5, SUB MTH (s), 1, B/L , SUB MTH (s), 2, B/L, SUB MTH (s), 3, B/L, SUB MTH (s), 5, B/L , Plantar, Heel, B/L. Assessment: * Assessment: 1. T ype 2 diabetes mellitus with diabetic polyneuropathy - E11.42 (Primary) 2 . T inea unguium - B35.1 Plan: * Treatment: * Procedures: D ebdarricke Nail 6-10: Nail debridement D ue to the clinical pathology outlined in the exam findings, performance of this nail treatment is medically necessary as its management by an unskilled/untrained nonprofessional would put this patients foot and overall health at risk. Therefore, debridement to affected nail(s), as described in exam ( T A, T1, T2, T3, T4, T5, T6, T7, T8, T9 ) , was performed exclusively by the physician of record to reduce/remove overall nail length, girth, thickness, subungual debris, and necrotic tissue, by manual and/or electrical means through the use of a nail nipper and/or dremel-type cutter grinder, to a more viable healthy nail [...] to maintain effectiveness in symptomatic relief - 37422. K eratoma Treatment: Parring or Cutting of Benign Hyperkeratotic Lesion(s) ( -57) More than 4 Lesions - Due to the at risk nature of the patients medical condition as documented in the exam findings, performance of this keratoderma treatment is medically necessary as its management by an unskilled/untrained nonprofessional would put this patients foot and overall health at risk. Therefore, the benign hyperkeratotic lesions, (12) in total, locations as stated and described in the exam ( M cindy, I PJ, T A, M cindy, I PJ, T 5, S UB MTH (s), 1 , B /L , S UB MTH (s), 2 , B /L, S UB MTH (s), 3 , B /L, S UB MTH (s), 5 , B /L , P lantar, H eel, B /L ) , were pared, and/or cut utilizing a sterile 15 blade, tissue nippers, and/or power dremel instrumentation by the physician of record - [id number]. * Procedure Codes: 1 1721 DEBRIDE NAIL, 6 OR MORE, Modifiers: XS 32272 TRIM SKIN LESIONS, OVER 4, Modifiers: XS * Follow Up: p rn * Images: * Sign off status: Completed true * Provider: Kevan Parks DPM Date: 11/02/2024 Generated for Дмитрий pace/De/Agustin on: 11/03/2024 11:10 AM EST History and Physical Notes * HPI (History of Present Illness) Category Sub-Category Detail Notes Category Not es At Risk footcare Pt States Last PCP Visit: Date: Examination Category Sub-Category Detail Notes Category Not es Neurological SENSORY: Neurological exa m demonstrates a loss of protective sensation by an absence of tested sensitivity to 5.07 [place]ona monofilament at 2 or more sites out of 5 total locations, each foot Dermatologic SKIN FINDINGS: Skin exam reveal s Keratotic lesion(s) located at, Medial, IPJ, TA, Medial, IPJ, T5, SUB MTH (s), 1, B/L , SUB MTH (s), 2, B/L, SUB MTH (s), 3, B/L, SUB MTH (s), 5, B/L , Plantar, Heel, B/L Ophthalmology Referral DIABETES EYE EXAM Procedu re Performed:: Yes Date of Exam Performed: 05/19/2025 Diabetic Retinopathy Screening:: Yes Retinal Screening Performed:: Yes Findings of Diabetic Eye Exam:: no retin opathy Nails NAILS are: Elongated, overg rown, dystrophic, lytic, greater than 3mm thick, discolored and friable with crumbly malodorous subungual debris , TA, T1, T2, T3, T4, T5, T6, T7, T8, T9
[2025-09-03 09:44] VITALS: BP 124/80; PULSE 93; RESP 17; TEMP 36.7; O2SAT 96; BMI 28.1
--- NOTE | 2025-09-03 09:44 | AM.OFFVISMDC ---
Intake Vital Signs 09/03/25 09:44 Height 6 ft 1 in Weight 213 lb BMI 28.1 BP 124/80 Blood Pressure Location Lt brachial Position Sitting Respiration 17 Pulse 93 Pulse Source Pulse Oximeter Temp 98.0 F Temp Source Oral Pulse Oximetry (%) 96 Oxygen Delivery Method Room Air Intake Visit Reasons: SWV G0439 Intake Note: Pt is here today for AWV. Allergies amoxicillin (Augmentin) Allergy (Unknown, Verified 09/03/25 09:51) diarrhea clavulanic acid (Augmentin) Allergy (Unknown, Verified 09/03/25 09:51) diarrhea Sulfa (Sulfonamide Antibiotics) (SULFA(SULFONAMIDE ANTIBIOTICS)) Allergy (Unknown, Verified 09/03/25 09:51) Swelling Medication List - Last Reconciled 09/03/25 by Kyung Soto MD apixaban (Eliquis) 5 mg PO BID azelastine 1 spray intranasal BID blood sugar diagnostic QD blood sugar diagnostic (Bina TechnologiesTouch Ultra Test strips) 1 qd blood-glucose meter ([employer] Ultra2 Meter) As directed carvedilol 25 mg PO BID clotrimazole 1% appl topical diltiazem HCl CD 240 mg PO DAILY duloxetine 60 mg PO DAILY empagliflozin (Jardiance) 25 mg PO DAILY gabapentin 1,200 mg (2 x 600 mg) PO BID ketoconazole 2% 1 appl topical DAILY lancets (Bina TechnologiesTouch UltraSoft Lancets) qd lisinopril 40 mg PO DAILY metformin 1,000 mg PO BID omeprazole 40 mg PO DAILY Ozempic (semaglutide) 1 mg (0.75 mL) subcut QWEEK NS pravastatin 40 mg PO DAILY HPI SWV G0439 HPI Details Initiated the conversation about Advanced Directives. Advanced Directives help? patients prepare for current and future decisions about their medical treatment? and place of care. Discussed with patient that it is a process where a patients? current condition and prognosis are reviewed, their wishes for information? regarding their illness are elicited, and likely medical dilemmas are presented? and options discussed. The form can be amended as needed, reviewed yearly and? make changes as needed IPPE/AWV ? year old presents? for her ? Annual? Wellness Visit, initial visit.? Medical / Social History Reviewed? Past Medical History ?Yes? . ? [place]? of Care / Care Team list updated ?Yes . ? Surgical/Hospitalization? History ?Yes . ? Current Medications? (including OTC and supplements) ?Yes . ? Family History ?Yes? . ? Tobacco? Control form ?Yes . ? AUDIT-C (Alcohol use) form? ?Yes . ? Illicit drug use in Social? History ?Yes . ? Current diagnosis of? depression? ?No ? Appropriate PHQ2/PHQ9? completed ?Yes . ? Data entered by ?Medical? Special Order Jeweler and reviewed by provider ? Fall Risk ? Fall? History? Have you had any falls with? injury in the past year? ?No . ? Have you had two or more? falls in the past year? ?No . ? Fall Risk Assessment: ?No? falls in the past year . ? HRA filled out by? the patient, reviewed by Provider and scanned. ? IPPE/AWV ? Balance? [place]? ?Yes . ? Tandem? walk ?Yes . ? Walk and? Turn ?Yes . ? Rise from? sit to stand ?Yes . ?Vision? Corrective? lens ?Yes ? Vision? screen ? Up-to-date, has an appointment [] for vision? screening and glaucoma screening ?Hearing? Whisper? test ?pass .? Initiated the conversation about Advanced Directives. Advanced Directives help? patients prepare for current and future decisions about their medical treatment? and place of care. Discussed with patient that it is a process where a patients? current condition and prognosis are reviewed, their wishes for information? regarding their illness are elicited, and likely medical dilemmas are presented? and options discussed. The form can be amended as needed, reviewed yearly and? make changes as needed Written? Plan?Completed. See Patient? Documents. [facility] Medical History (Updated 09/03/25 @ 15:38 by Kyung Soto MD) Paroxysmal A-fib Hx of prostatic malignancy Annual physical exam Hyponatremia Anxiety Hyperkalemia Hyperlipidemia HTN (hypertension) DM type 2 (diabetes mellitus, type 2) Surgical History History of laparoscopic cholecystectomy History of cataract surgery Family History Father No problems noted. Mother Mental health disorder Son No problems noted. Daughter No problems noted. Daughter No problems noted. Daughter No problems noted. Daughter No problems noted. Social History Housing: House Alcohol intake: never Patient Tobacco Use Status: Never used Tobacco e-Cigarette/Vaping Use: Never Used Second Hand Smoke Exposure: No service: Yes Current occupational status: retired Cognitive needs: No Hearing needs: Yes Vision needs: Yes Questionnaire Medicare Wellness Checkup What is your age?: 80 or older What gender do you identify with?: male During the past 4 weeks, how much have you been bothered by emotional problems such as feeling anxious, depressed, irritable, sad or downhearted, and blue?: not at all During the past 4 weeks, has your physical & emotional health limited your social activities with family, friends, neighbors, or groups?: not at all During the past 4 weeks, how much bodily pain have you generally had?: moderate pain During the past 4 weeks, was someone available to help you if you needed & wanted help?: yes, as much as I wanted During the past 4 weeks, what was the hardest physical activity you could do for at least 2 minutes?: very heavy Can you get to places out of walking distance without help? (For eg., can you travel alone on buses, taxis or drive your car?): Yes Can you go shopping for groceries or clothes without someone's help?: Yes Can you prepare your own meals?: Yes Can you do your housework without help?: Yes Because of any health problems, do you need the help of another person with your personal care needs such as eating, bathing, dressing or getting around the house?: No Can you handle your own money without help?: Yes During the past 4 weeks, how would you rate your health in general?: excellent During the past 4 weeks how have things been going for you?: very well; could hardly better Are you having difficulties driving your car?: no Do you always fasten your seat belt when you are in a car?: yes, usually During past 4 weeks, have you been bothered by the following: never: Falling or dizzy when standing up, Sexual problems?, Trouble eating well?, Teeth or denture problems?, Problems using the telephone? and Tiredness or fatigue? Have you fallen 2 or more times in the past year?: No Are you afraid of falling?: No Are you a smoker?: no During the past 4 weeks, how many drinks of wine, beer, or other alcoholic beverages did you have?: no alcohol at all Do you exercise for about 20 minutes 3 or more times a week?: yes, most of the time Have you been given information to help with the following?: yes: Hazards in your house that might hurt you? and yes: Keeping track of your medications? How often do you have trouble taking medicines the way you have been told to take them?: I always take medicine as prescribed How confident are you that you can control & manage most of your health problems?: very confident What is your race?: White Mini Mental State Exam (MMSE) Orientation What is the (year) (season) (date) (day) (month)?: year, season, date, day and month Where are we (state) (county) (town or city) (hospital) (floor)?: state, county, town or city, hospital/clinic and floor Registration Name of 3 unrelated objects clearly and slowly, then ask patient to repeat all 3 of them. (1st repeat determines score. Make sure they can repeat all three): object 1, object 2 and object 3 Attention & Calculation (CHOOSE ONE) Spell WORLD backwards (DLROW): 5 letters Recall Ask patient to repeat the 3 items from question #3.: object 1, object 2 and object 3 Language Show patient a wristwatch & ask what it is. Repeat for pencil.: watch and pencil Ask the patient to repeat the phrase 'No ifs, ands, or buts' after you.: correct Ask the patient to 'take a piece of paper with their right hand' 'fold paper in half' 'place paper on floor': take paper in right hand, fold paper in half and place paper on floor Print the sentence 'CLOSE YOUR EYES' on a piece. If patient actually closes eyes then score.: followed written direction Give patient a blank piece of paper & ask to write a sentence. Score if it contains a noun & verb.: sentence contains subject and verb Score Score: 29 PHQ-9 Over the last 2 weeks, how often have you been bothered by any of the following problems? 1. Little interest or pleasure in doing things: not at all 2. Feeling down, depressed, or hopeless: not at all 3. Trouble falling or staying asleep, or sleeping too much: not at all 4. Feeling tired or having little energy: not at all 5. Poor appetite or overeating: not at all 6. Feeling bad about yourself - or that you are a failure or have let yourself or your family down: not at all 7. Trouble concentrating on things, such as reading the newspaper or watching television: not at all 8. Moving or speaking so slowly that other people could have noticed. Or the opposite - being so fidgety or restless that you have been moving around a lot more than usual: not at all 9. Thoughts that you would be better off or of hurting yourself in some way: not at all Total score: 0 Depression Screening Interpretation: Negative Depression Screening Done: Yes Source: Developed by Drs. Fidencio Carl, Loren Quintanilla, Shawn Khan and colleagues, with an educational alyssia from [employer]. Review of Systems Const All systems reviewed & are unremarkable except as noted in HPI and below Eyes Reports no additional complaints ENT Reports no additional complaints Card Reports no additional complaints Resp Reports no additional complaints GI Reports no additional complaints Reports no additional complaints Physical Exam Vital Signs: Last Vital Signs Temp 98.0 F 09/03/25 09:44 Pulse 93 09/03/25 09:44 Resp 17 09/03/25 09:44 BP 124/80 09/03/25 09:44 Pulse Ox 96 09/03/25 09:44 Oxygen Delivery Method Room Air 09/03/25 09:44 BMI result Body Mass Index 28.1 Const General: no acute distress HEENT Head: Yes normal to inspection Eyes General: appearance normal, both eyes and all related structures Neck Neck: Yes no lymphadenopathy and Yes supple Resp Effort & Inspection: normal respiratory effort Auscultation: clear to auscultation bilaterally Cardio Rhythm: regular rhythm Heart sounds: S1 normal heart sound present and S2 normal heart sound present GI Inspection: Yes normal to inspection Palpation (GI): Soft to palpation Percussion: Yes normal to percussion Auscultation: normal bowel sounds Extrem Other: Diabetic foot exam skin is intact monofilament and vibration sensation intact bilaterally General: Yes no clubbing, cyanosis or edema Assessment & Plan Assessment & Plan (1) DM type 2 (diabetes mellitus, type 2): Code(s): E11.9 - Type 2 diabetes mellitus without complications Plan: A1c is 6.9, ADA diet increase physical activity weight loss discussed with the patient. Ozempic will be increased to 2 mg weekly patient will continue metformin and Jardiance and will follow-up in 4 months with a fasting labs before (2) HTN (hypertension): Code(s): I10 - Essential (primary) hypertension Plan: Continue current medications (3) Hyperlipidemia: Code(s): E78.5 - Hyperlipidemia, unspecified Plan: Continue statin (4) Paroxysmal A-fib: Comment: since 2018, on Eliquis established with [facility] Code(s): I48.0 - Paroxysmal atrial fibrillation Plan: Continue Eliquis beta kristyn and diltiazem Orders: Orders Hemoglobin A1c 4 Months E11.9 - Type 2 diabetes mellitus without complications, E78.5 - Hyperlipidemia, unspecified, I10 - Essential (primary) hypertension Complete Blood Count Auto Diff 4 Months E11.9 - Type 2 diabetes mellitus without complications, E78.5 - Hyperlipidemia, unspecified, I10 - Essential (primary) hypertension PSA,Total (Free>4and<10) 4 Months E11.9 - Type 2 diabetes mellitus without complications, E78.5 - Hyperlipidemia, unspecified, I10 - Essential (primary) hypertension Lipid Panel 4 Months E11.9 - Type 2 diabetes mellitus without complications, E78.5 - Hyperlipidemia, unspecified, I10 - Essential (primary) hypertension Comprehensive [place]. Panel Fast 4 Months E11.9 - Type 2 diabetes mellitus without complications, E78.5 - Hyperlipidemia, unspecified, I10 - Essential (primary) hypertension Microalbumin, Random (w Creat) 4 Months E11.9 - Type 2 diabetes mellitus without complications, E78.5 - Hyperlipidemia, unspecified, I10 - Essential (primary) hypertension Medications: New Ozempic (semaglutide) 2 mg (0.75 mL) subcut QWEEK 9 mL 0RF NS Changed From lancets (OneTouch UltraSoft Lancets) qd 100 ea 3RF To lancets qd 100 ea 3RF Refilled diltiazem HCl CD 240 mg PO DAILY 90 caps 3RF Discontinued Ozempic (semaglutide) Discontinued Reason: Doctor's Order 1 mg (0.75 mL) subcut QWEEK 9 mL 1RF NS Quality Reporting (2019) Depression/Bipolar (159/160/161/177) PHQ-9: Total score: 0 Coding Level of Care Code Medicare Subsequent (G0439) Diagnoses DM type 2 (diabetes mellitus, type 2) E11.9 HTN (hypertension) I10 Hyperlipidemia E78.5 Paroxysmal A-fib I48.0 CPT Codes Advance Care Planning - Advance Care Planning discussion: On file, no changes ([id number]) Advance Care Planning - Time spent: 1-15 minutes, on File ([id number]) Advance Care Planning Advance Care Planning discussion: On file, no changes Forms completed: Health Care Proxy Time spent: 1-15 minutes, on File
--- OUTSIDE RECORDS SUMMARY | 2025-09-03 11:10 | XMS_ITS | Encounter Summary ---
Author Organization [facility] Address [address] [place] [address] Care Team Providers Care County Adviser Name Role Phone Kyung Soto MD Primary Care Provider Gabbya ble Encounter Details Date Type Department Care Team Description 07/19/2021 SCAN Medical Records [address] [place] [address] Abstract, Provider Social History Tobacco Use Types Packs/Day Years Used Date Smoking Tobacco: Never Smokeless Tobacco: Never Sex Assigned at Date Recorded Not on file Job Start Date Occupation Industry Not on file Not on file Not on file documented as of this encounter Progress Notes * Luciana Yoo MD - 07/25/2021 8:33 AM EDT Please call patient and notify him that his labs look good. Electrolytes and kidney function good. Thanks. documented in this encounter Plan of Treatment Not on file documented as of this encounter Procedures Procedure Name Priority Date/Time Associated Diagnosis Comments OUTSIDE LAB Routine 07/19/2021 documented in this encounter Results * OUTSIDE LAB (07/19/2021) Provider Default LAB documented in this encounter Visit Diagnoses Not on filedocumented in this encounter Care Teams County Adviser Relationship Specialty Start Date End Date Kyung Soto MD PCP - General Internal Medicine 02/25/18 documented as of this encounter
--- OUTSIDE RECORDS SUMMARY | 2025-09-03 11:10 | XMS_ITS | Encounter Summary ---
Author Organization [facility] Address [address] [place] [address] Care Team Providers Care Building Services Technician Name Role Phone Kyung Soto MD Primary Care Provider Gina ortega Encounter Details Date Type Department Care Team Description 07/25/2021 Telephone Cardio PVC [address] [facility] [address] [place] [id number] Luciana Yoo MD [address] [place] [id number] Social History Tobacco Use Types Packs/Day Years Used Date Smoking Tobacco: Never Smokeless Tobacco: Never Alcohol Use Standard Drinks/Week Comments Not Currently 0 (1 standard drink = 0.6 oz pur e alcohol) Sex Assigned at Date Recorded Not on file Job Start Date Occupation Industry Not on file Not on file Not on file COVID-19 Exposure Response Date Recorded In the last month, have you been in contact with someone who was confirmed or suspected to have Coronavirus / COVID-19? No / Unsure 07/25/2021 12:36 PM EDT documented as of this encounter Miscellaneous Notes * Telephone Encounter - Luciana Yoo MD - 07/25/2021 8:35 AM EDT Hey guys, he is overdue for a follow up with me-last see in 12/2019. I left it up to him if he wanted to come back yearly or as needed only-at the time, he said he wanted to follow up yearly-but you can ask him if this is still the case. If it is, no need to set up follow up. If not, follow up with or Robin Jack first available. Thanks. documented in this encounter Plan of Treatment Not on file documented as of this encounter Visit Diagnoses Not on filedocumented in this encounter Care Teams Building Services Technician Relationship Specialty Start Date End Date Kyung Soto MD PCP - General Internal Medicine 02/25/18 documented as of this encounter
--- OUTSIDE RECORDS SUMMARY | 2025-09-03 11:10 | XMS_ITS | Encounter Summary ---
Author Organization [facility] Address [address] [place] [address] Care Team Providers Care Organic Gardening Teacher Name Role Phone Kyung Soto MD Primary Care Provider Gina ortega Encounter Details Date Type Department Care Team Description 04/25/2018 Release of Information Medical Records [address] [place] [id number] Abstract, Provider Social History Tobacco Use Types Packs/Day Years Used Date Smoking Tobacco: Never Smokeless Tobacco: Never Sex Assigned at Date Recorded Not on file Job Start Date Occupation Industry Not on file Not on file Not on file documented as of this encounter Plan of Treatment Not on file documented as of this encounter Visit Diagnoses Not on filedocumented in this encounter Care Teams Organic Gardening Teacher Relationship Specialty Start Date End Date Kyung Soto MD PCP - General Internal Medicine 02/25/18 documented as of this encounter
--- OUTSIDE RECORDS SUMMARY | 2025-09-03 11:10 | XMS_ITS | Clinical Summary ---
Author Organization [facility] Address [address] [place] [address] Care Team Providers Care Bottom Sander Name Role Phone Kyung Soto MD Primary Care Provider Unavaila ble Allergies Active Allergy Reactions Severity Noted Date Comments Sulfa Drugs 04/22/2018 Medications Medication Sig Dispensed Refills Start Date End Date Status omeprazole (PRILOSEC) 40 MG capsule Take 40 mg by mouth daily. 0 Active busPIRone (BUSPAR) 5 MG tablet Take 5 mg by mouth daily. 2 tablets once a day 0 Active gabapentin (NEURONTIN) 600 MG tablet Take 600 mg by mouth 2 times daily. 2 tablets twice a day 0 Active lisinopril (PRINIVIL,ZESTRIL) 40 MG tablet Take 40 mg by mouth daily. 0 Active metformin (GLUCOPHAGE) 1000 MG tablet Take 1,000 mg by mouth 2 times daily (with meals). 0 Active glipiZIDE (GLUCOTROL) 5 MG tablet Take 5 mg by mouth 2 times daily (before meals). 0 Active pravastatin (PRAVACHOL) 40 MG tablet Take 40 mg by mouth daily. 0 Active AZELASTINE HCL OP apply to the eye. 0 Active carvedilol (COREG) 25 MG tablet Take 1 Tab by mouth 2 times daily (with meals). 90 Tab 3 04/22/2018 Active diltiazem (CARDIZEM CD) 180 MG 24 hr capsule Take 1 Cap by mouth daily. 5 Cap 0 04/22/2018 Active Dulaglutide 0.75 MG/0.5ML Solution Pen-injector Inject into the skin once a week. 0 Active CPAP Historical (HISTORICAL CPAP) Inhale into the lungs. 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 Family History Medical History Relation Name Comments No Known Problems Father No Known Problems Mother Relation Name Status Comments Father Mother Social History Tobacco Use Types Packs/Day Years Used Date Smoking Tobacco: Never Smokeless Tobacco: Never Alcohol Use Standard Drinks/Week Comments Not Currently 0 (1 standard drink = 0.6 oz pur e alcohol) Sex Assigned at Date Recorded Not on file Job Start Date Occupation Industry Not on file Not on file Not on file Last Filed Vital Signs Vital Sign Reading Time Taken Comments Blood Pressure 180/100 07/25/2021 1:33 PM EDT Pulse 103 07/25/2021 1:07 PM EDT Temperature - - Respiratory Rate - - Oxygen Saturation 97% 07/25/2021 12:57 PM EDT Inhaled Oxygen Concentration - - Weight 106.1 kg (234 lb) 07/25/2021 12:57 PM EDT Height 185.4 cm (6' 1 ) 07/25/2021 12:57 PM EDT Body Mass Index 30.87 07/25/2021 12:57 PM EDT Plan of Treatment Health Maintenance Due Date Last Done Comments Covid-19 Vaccine (#1) 1945 DEPRESSION SCREEN 1957 DIABETES/HEART DISEASE: RANULFO AL CHOLESTEROL (LDL) 1963 DIABETES: ANNUAL EYE EXAM 1963 DIABETES: ANNUAL FOOT EXAM 1963 DIABETES: ANNUAL URINE PROTE IN TEST (MICROALBUMIN) 1963 DIABETES: BLOOD SUGAR CONTRO L TEST (HGBA1C) 1963 SHINGLES VACCINE (1 of 2) 1995 FALL RISK ASSESSMENT 2010 PNEUMOCOCCAL VACCINE (2 - PCV) 10/30/2013 10/30/2012 BMI CHECK/ADVISE 10/22/2024 04/22/2018, 04/22/2018 INFLUENZA (#1) 2025 07/17/2019, 06/22, 09/12/2017 DTAP/TDAP/TD (3 - Td or Tdap) 12/16/2025 12/16/2015, 03/13/2012 Care Teams Bottom Sander Relationship Specialty Start Date End Date Kyung Soto MD PCP - General Internal Medicine 02/25/18
--- OUTSIDE RECORDS SUMMARY | 2025-09-03 11:10 | XMS_ITS | Encounter Summary ---
Author Organization [facility] Address [address] [place] [address] Care Team Providers Care Manager Mission Name Role Phone Kyung Soto MD Primary Care Provider Kyung Alvarenga MD Primary Care Provider Gina ortega Encounter Details Date Type Department Care Team Description 02/22/2018 [facility] Medical Records [address] [place] [id number] [place] Peace Social History Tobacco Use Types Packs/Day Years [...] on filedocumented in this encounter Care Teams Manager Mission Relationship Specialty Start Date End Date Kyung Soto MD PCP - General Internal Medicine 02/25/18 Kyung Soto MD PCP - General 02/21/18 02/24/18 documented as of this encounter
--- OUTSIDE RECORDS SUMMARY | 2025-09-03 11:10 | XMS_ITS | Data Portability ---
Author Organization [place] - [facility], Allergy Address [address] [place] [address] Care Team Providers Care Field Service Engineer Name Role Phone [id number] Primary Care Provider Assessment No assessment recorded. [...] Recorded Time Impacted cerumen of bilateral ears [id number] Active 2017 Impacted cerumen, bilateral ; Note: Date Diagnosed : 11/05/2017 1:06 PM (H61.23) Not Available [facility] 4 02:33:48 Sensorine ural hearing loss of bilateral ears [id number] Active 2018 Sensorine ural hearing loss, bilateral ; Note: Date Diagnosed : 12/23/2018 10:38 AM (H90.3) Not Available [facility] 4 02:33:34 Impacted cerumen in right ear [id number] 78905 Active 2019 Impacted cerumen, right ear; Note: Date Diagnosed : 12/15/2019 4:53 PM (H61.21) Not Available [facility] 4 02:33:38 Otorrhagi a of right ear [id number] 79648 Active 2019 Otorrhagi a, right ear; Note: Date Diagnosed : 06/18/2020 10:22 AM (H92.21) Not Available [facility] 4 02:33:32 Problem Notes None recorded. Medical Equipment None Reported. Allergies Allergen ID Allergen Name Allergen Category Reaction Reaction Severity Criticality Documentation Date Start Date Code Code System Note Provider Name and Address Organization Details Recorded Time 96224 Substance with sulfonami de structure and antibacte rial mechanism of action (substanc e) medicatio n other Not available Not available 03/04/2024 55254 8003 SNOMED React ion: unkno wn, unspe cifie d;; Not Available [facility] 4 00:56:19 Medications Name Sig Start Date Stop Date Status Note LastModified by Organization Details LastModified Time carvedilo l 25 mg tablet TAKE 1 TABLET (25 MG) ORALLY 2 TIMES A DAY MUST ADMINIST ER WITH A MEAL/DADA D active Not Available Not Available No t Available gabapenti n 600 mg tablet TAKE 2 TABLETS TWICE A DAY active Not Available Not Available No t Available carvedilo l 12.5 mg tablet 04/21 completed Medicati on ID: [id number] D uration Value: 90 Reason: () Brand Name: carvedil ol Send Method: E-Prescr ibed Sub s Allowed: subs OK Medic ationGen ericName : carvedil ol Not Available Not Available Not Available pravastat in 40 mg tablet TAKE 1 TABLET DAILY active Not Available Not Available No t Available diltiazem CD 180 mg capsule,e xtended release 24 hr 2018 active Medicati on ID: [id number] D uration Value: 30 Brand Name: diltiaze [...] mg tablet 2018 active Medicati on ID: [id number] D uration Value: 30 Brand Name: clonazep am Send Method: E-Prescr ibed Sub s Allowed: subs OK Speci al Instruct ion: TAKE 1 TABLET BY MOUTH TWICE A DAY Medi cationGe nericNam e: clonazep am Not Available Not Available Not Available glipizide ER 5 mg tablet, extended release 24 hr 2019 active Medicati on ID: [id number] D uration Value: 90 Brand Name: glipizid [...] both ears 2019 active Medicati on ID: [id number] D uration Value: 7 Prescri bed By Name: JADEN Corona nd Name: ofloxaci n Send Method: E-Prescr ibed Sub s Allowed: subs OK Medic ationGen ericName : ofloxaci n Not Available Not Available Not Available OneTouch Ultra Test strips USE TO TEST ONCE A DAY. DX:E11.9 active Not Available Not Available No t Available amlodipin e 10 mg tablet 2017 active Medicati on ID: [id number] B rand Name: amlodipi ne Send Method: E-Prescr ibed Sub s Allowed: subs OK Medic ationGen ericName : amlodipi ne Not Available Not Available Not Available glipizide ER 2.5 mg tablet, extended release 24 hr 04/21 completed Medicati on ID: [id number] D uration Value: 90 Reason: () Brand [...] mg tablet 2017 active Medicati on ID: [id number] B rand Name: hydrochl orothiaz willis Send Method: E-Prescr ibed Sub s Allowed: subs OK Medic ationGen ericName : hydrochl orothiaz willis Not Available Not Available Not Available azelastin e 137 mcg (0.1 %) nasal spray SPRAY 1 SPRAY INTO EACH NOSTRIL TWICE A DAY active Not Available Not Available No t Available ketoconaz ole 2 % topical cream APPLY TOPICALL Y DAILY active Not Available Not Available No t Available lisinopri l 40 mg tablet TAKE 1 TABLET BY MOUTH EVERY DAY active Not Available Not Available No t Available clotrimaz ole 1 % topical cream APPLY TO AFFECTED AREA TOPICALL Y TWICE A DAY active Not Available Not Available No t Available glipizide 5 mg tablet TAKE 1 TABLET BY MOUTH TWICE A DAY active Not Available Not Available No t Available buspirone 15 mg tablet 2019 active Medicati on ID: [id number] D uration Value: 90 Brand Name: buspiron e Send Method: E-Prescr ibed Sub s Allowed: subs OK Medic ationGen ericName : buspiron e Not Available Not Available Not Available metformin ER 1,000 mg tablet,ex tended release 24hr (osmotic) 2017 active Medicati on ID: [id number] B rand Name: metformi n Send Method: E-Prescr ibed Sub s Allowed: subs OK Medic ationGen ericName : metformi n Not Available Not Available Not Available duloxetin e 60 mg capsule,d elayed release TAKE 1 CAPSULE DAILY active Not Available Not Available No t Available Tradjenta 5 mg tablet 2019 active Medicati on ID: [id number] D uration Value: 90 Brand Name: Tradjent [...] pen injector 2019 active Medicati on ID: [id number] D uration Value: 84 Brand Name: Kristi salgado Send Method: E-Prescr ibed Sub s Allowed: subs OK Speci al Instruct ion: INJECT 0.75MG (1 SYRINGE) SUBCUTAN EOUSLY ONCE A WEEK DIRECTED Medicat ionGener icName: Kristi salgado Not Available Not Available Not Available OneTouch Ultra2 Meter DIRECTED . DX:E11.9 active Not Available Not Available No t Available Ozempic 1 mg/dose (4 mg/3 mL) [...] ICD10 Code Diagnosis IMO Codes Diagnosis Note [id number] JORGE ALVARES [place] [address] [facility] 100 [place] [address] 11/21/2024 08:43:51 11/24/2024 10:21:47 Sensorineural hearing loss of bilateral ears [id number] H90.3 [id number] JORGE ALVARES [place] 100 [facility] 100 [place] [address] 02/20/2025 08:52:52 02/24/2025 18:02:30 Sensorineural hearing loss of bilateral ears [id number] H90.3 [id number] JORGE ALVARES [place] [address] [facility] [address] [place] [address] 03/05/2025 12:48:02 03/06/2025 09:42:07 Sensorineural hearing loss of bilateral ears [id number] H90.3 Health Concerns Section Related Observation LastModified by Organization Detai ls LastModified Time None Recorded Concern Status LastModified by Organization Details LastModified Time None Recorded Advance Directives Directive None Recorded Payers Insurance Date Sequence Insurance Name Policy Number Policy Parish Covered Member ID Parish Member ID Guarantor Name 09/03/2025 2 [place] [id number] Gerardo Wei [id number] Gerardo Wei 09/01/2025 1 [place] [employer] Gerardo Wei [id number] Gerardo Wei Notes Date Note Type [...] Will do hearing test at this time. EDUARDO ARNETT, AUD [address] [facility], [address], [place] - [facility] 11/21/2024 09:43:29 02/20/2025 text/html Audiogram completed today showed stable hearing. Concerns: LHA has been not working for a couple weeks. RHA seems okay. Check/clean: RHA in GWO before and afte cleaning. LHA is only outputting static, microphones don't seem to be picking up sound. Bridge Carpenter change did not fix issue. Will need to be sent out for repair. I gave him a demo for the mean time. Adjustments: updated to new test. Changed battery in the RHA. FU: 6 months. I will call when the LHA is back from repair, I will just need the RHA dropped off to pair them together. EDUARDO ARNETT, AUD [address] [facility],[place] [address], [place], [address], [place] - [facility] 02/20/2025 10:29:40 03/05/2025 text/html Returned loaner. Paired LHA to RHA. Everything was in GWO when he left the office. No charge for today's visit. EDUARDO ARNETT, [facility] [address] [facility],[place] [address], [place], [address], [facility] - [facility] 03/05/2025 13:09:07
--- OUTSIDE RECORDS SUMMARY | 2025-09-03 11:10 | XMS_ITS | Patient Health Record ---
[facility] Address [address] [place] [address] Care Team Providers Care Quality Director Name Role Phone Kyung Soto MD Primary Care Provider UnavailJacek Sebastian Unavailable [phone] Allergies Allergen (clinical drug ingredient) Drug/Non Drug Allergy documented on EMR Reaction Allergy Type Onset Date Status Substance with sulfonamide structure and antibacterial mechanism of action (substance) Sulfa Antibiotics rash Drug Allergy Active Results Component Value Reference Range Notes HEMOGLOBIN A1C (GLYCOHEMOGLO BIN) Reviewed date:01/29/2025 10:20:06 AM Interpretation: Performing Lab: Notes/Report: HEMOGLOBIN A1C % (HH) 6.1 HEMOGLOBIN A1C (GLYCOHEMOGLO BIN) Reviewed date:05/25/2025 08:50:25 AM Interpretation: Performing Lab: Notes/Report: HEMOGLOBIN A1C % (HH) 5.7 Reason For Referral No Information Medications Medication [...] e a day; Duration: 30 day(s) Active Carvedilol 25 MG Orally twice daily Active Jardiance Active DULoxetine HCl 60 MG 1 capsule Orally On ce a day Active Ozempic Active Azelastine HCl Activ e Trulicity Not-Taking glipiZIDE ER 5 MG 1 tablet Orally Once a day Not-Taking dilTIAZem HCl Active Extra Depth Orthopedic Shoes (1 Pair) with Customized Heat Molded Multidensity Innersoles (3 Pair) as directed Dx: NIDDM/Polyneuropathy (E11.42), Hammertoe Foot Deformity (M20.41,M20.42), Preulcerative Skin Lesion(s) (L85.1 Active glipiZIDE 5 MG 1 tablet Orally Once a day Not-Taking Astelin 137 MCG/SPRAY 1 puff in each nostril Nasally Twice a day; Duration: 30 day(s) Not-Taking busPIRone HCl Not-Ta munir clonazePAM 0.5 MG 1 tablet Orally twic e a day Not-Taking hydroCHLOROthiazide 25 mg Not-Taking Cymbalta 60 mg 1 capsule Orally onc e a day; Duration: 30 day(s) Not-Taking Naproxen 500 MG TAKE 1 TABLET BY MOUTH TWICE A DAY WITH FOOD Oral; Duration: 30 Not-Taking Lisinopril 40 mg Act oskar Gabapentin 600 mg 2 tabs Twice a day Active Eliquis 5 MG Orally Active Pravastatin Sodium 40 mg Active Omeprazole 40 mg Act oskar Multivitamins as directed Orally Active metFORMIN HCl 1000 MG Orally Twice a day Active Immunizations Vaccine Route Administration Date Status Comme nts COVID-19 Moderna Vaccine Unknown 12/01/2020 Administere d #2 12/29/20 Influenza Unknown 02/23/2016 Administered Influenza Unknown 07/27/2016 Administered Influenza Unknown 09/12/2017 Administered Influenza Unknown 08/09/2018 Administered Influenza Unknown 07/22/2019 Administered Influenza Unknown 05/25/2025 Refused Pneumococcal Unknown 09/21/2015 Administered Pneumococcal Unknown 08/08/2016 [...] ast year? No Points 0 Interpretation Negative Problems Problem Type SNOMED Code ICD Code Onset Dates Problem Status W/U Status Risk Notes Problem Acquired hammer toe of right foot ([id number] ) Other hammer toe(s) (acquired), right foot (M20.41) Active confirmed Response to treatment, Gigi gomez Problem Acquired hammer toe of left foot (1477376619480870 ) Other hammer toe(s) (acquired), left foot (M20.42) Active confirmed Response to treatment, Gigi gomez Problem Polyneuropathy due to type 2 diabetes mellitus (592164738) Type 2 diabetes mellitus with diabetic polyneuropathy (E11.42) Active confirmed Vital Signs Blood pressure diastolic 72 mm Hg 09/02/2025 Height 6 ft 1 in in 09/02/2025 Blood pressure systolic 120 mm Hg 09/02/2025 Weight 219 lbs 09/02/2025 BMI 28.89 kg/m2 09/02/2025 Procedures Procedure Date Ordered Date Performed Result Body Sit e 35119-ULSZODC NAIL, 6 OR MORE 09/25/2024 N/A 45219-SGMY SKIN LESIONS, OVER 4 09/25/2024 N/A 66208-DFQEUPU NAIL, 6 OR MORE 01/29/2025 N/A 26637-ZBHY SKIN LESIONS, OVER 4 01/29/2025 N/A 20961-MJVJPUS NAIL, 6 OR MORE 05/25/2025 N/A 66426-QJTR SKIN LESIONS, OVER 4 05/25/2025 N/A 72961-DPMWBWY NAIL, 6 OR MORE 09/02/2025 N/A 60487-RWBX SKIN LESIONS, OVER 4 09/02/2025 N/A Encounters Encounter Location Date Provider Diagnosis [address] [address] 09/25/2024 Jacek Parks Type 2 diabetes mellitus with diabetic polyneuropathy E11.42 ; Tinea unguium B35.1 and Xerosis of skin L85.[address] [address] 01/29/2025 Jacekconor Parks Type 2 diabetes mellitus with diabetic polyneuropathy E11.42 ; Tinea unguium B35.1 ; Other hammer toe(s) (acquired), right foot M20.41 and Other hammer toe(s) (acquired), left foot M20.[address] [address] 05/25/2025 Jacek Parks Type 2 diabetes mellitus with diabetic polyneuropathy E11.42 and Tinea unguium B35.1 [facility] [place] [address] [address] 09/02/2025 Jacek Parks Type 2 diabetes mellitus [...] E11.42) 01/29/2025 Tinea unguium (ICD-10 - B35.1) 05/25/2025 Type 2 diabetes mellitus with diabetic polyneuropathy (ICD-10 - E11.42) 05/25/2025 Tinea unguium (ICD-10 - B35.1) 09/02/2025 Type 2 diabetes mellitus with diabetic polyneuropathy (ICD-10 - E11.42) 09/02/2025 Tinea unguium (ICD-10 - B35.1) 01/29/2025 Other [...] X ray : Foot, left 3V 10/18/2017 58238-TYFFASU NAIL, 6 OR MORE 11/23/2017 84097-HHLZMHE NAIL, 6 OR MORE 02/05/2018 16001-TPXOCFE NAIL, 6 OR MORE 04/16/2018 05979-OFPPIZC NAIL, 6 OR MORE 2018 22282-SBHQJXL NAIL, 6 OR MORE 09/25/2018 77195-GRBRKTI NAIL, 6 OR MORE 12/26/2018 32516-ZFNCGIJ NAIL, 6 OR MORE 04/02/2019 68744-FTVOJJT NAIL, 6 OR MORE 06/04/2019 45940-CIPRKOM NAIL, 6 OR MORE 02/23/2016 29912-NRNOAXS NAIL, 6 OR MORE 05/24/2016 84076-DMVBUAE NAIL, 6 OR MORE 08/21/2016 10224-DXLRZTF NAIL, 6 OR MORE 10/30/2016 55668-JXSGYZS NAIL, 6 OR MORE 01/29/2017 20322-GZOGCEV NAIL, 6 OR MORE 04/05/2017 80740-OOUOVTO NAIL, 6 OR MORE 07/11/2017 30441-DYXTRTS NAIL, 6 OR MORE 09/19/2017 19060-FIWLKXA NAIL, 6 OR MORE 05/10/2015 29330-UBAPBHB NAIL, 6 OR MORE 07/19/2015 85661-ERTDNIM NAIL, 6 OR MORE 09/30/2015 34219-IVAEHBG NAIL, 6 OR MORE 12/16/2015 99813-HNSDBOK NAIL, 6 OR MORE 11/14/2012 84001-MDEBKWU NAIL, 6 OR MORE 09/21/2014 97030-JJTLEDR NAIL, 6 OR MORE 12/14/2014 04269-VNCONKG NAIL, 6 OR MORE 02/24/2015 76317-GECHMUX NAIL, 6 OR MORE 03/19/2013 10759-TGYKUJG NAIL, 6 OR MORE 06/26/2013 15434-PMIRKQJ NAIL, 6 OR MORE 09/10/2013 34037-MSPAUNL NAIL, 6 OR MORE 11/20/2013 84370-MRMAKME NAIL, 6 OR MORE 01/21/2014 76043-RLRCKDW NAIL, 6 OR MORE 05/04/2014 23269-QDHDFXP NAIL, 6 OR MORE 07/20/2014 40037-JNRLBUW NAIL, 6 OR MORE 08/13/2019 45195-ANCFMUR NAIL, 6 OR MORE 12/15/2019 71369-TXIXDYW NAIL, 6 OR MORE 07/15/2020 62974-DZQGBKI NAIL, 6 OR MORE 01/13/2021 93678-YGNWRIC NAIL, 6 OR MORE 04/11/2021 80489-OXHEVRJ NAIL, 6 OR MORE 07/13/2021 31691-DLKRFIB NAIL, 6 OR MORE 09/21/2021 99637-SMIJTEG NAIL, 6 OR MORE 12/07/2021 64753-JFFGION NAIL, 6 OR MORE 02/15/2022 40073-BRZMGFZ NAIL, 6 OR MORE 04/26/2022 96582-YGQVHSG NAIL, 6 OR MORE 07/17/2022 68685-DROGBMR NAIL, 6 OR MORE 09/25/2022 24732-NTSGBEF NAIL, 6 OR MORE 12/04/2022 97492-NGQUCIM NAIL, 6 OR MORE 02/12/2023 54974-YMRRKLC NAIL, 6 OR MORE 04/26/2023 73154-XKTBJCC NAIL, 6 OR MORE 07/05/2023 92362-LWTGNYK NAIL, 6 OR MORE 09/10/2023 06984-PQYFVZD NAIL, 6 OR MORE 11/19/2023 87722-LRZMQBF NAIL, 6 OR MORE 01/30/2024 73722-GKZEMYF NAIL, 6 OR MORE 04/14/2024 25121-ZPUKKLC NAIL, 6 OR MORE 06/26/2024 87512-UBHEXQF NAIL, 6 OR MORE 09/25/2024 55892-MQLSBRM NAIL, 6 OR MORE 01/29/2025 71013-QQZGYEL NAIL, 6 OR MORE 05/25/2025 71205-LTBDOPS NAIL, 6 OR MORE 09/02/2025 25985-Tirakocg Plate 07/20/2014 51355-Hykokmdw Plate 05/04/2014 90931-Vlipdyyl Plate 01/21/2014 34647-Esaycwup Plate 11/20/2013 91765-Efjaoxav Plate 12/14/2014 97242-Kaghtwri Plate 09/21/2014 79630-Yfkvghnw Plate 01/06/2013 93266-Psvhayzm Plate 05/10/2015 06257-Ojofoiic Plate Each Additional 28676-Sqdvbxka Plate Each Additional 11/2013 12130-Ewucvbdc Plate Each Additional 09870-Xaitoqwk Plate Each Additional 64018- Debride <25 sq cm 10/18/2017 20655- Debride <25 sq cm 02/05/2018 56681 I&D ABSCESS- SIMPLE,SINGLE 013 23526-YOTM SKIN LESIONS, OVER 4 09/02/20 25 60179-LLBM SKIN LESIONS, OVER 4 05/25/20 25 67849-CRMC SKIN LESIONS, OVER 4 01/30/20 25 74229-EPZR SKIN LESIONS, OVER 4 09/25/20 66679-PMNE SKIN LESIONS, OVER 4 06/26/20 53360-YXRV SKIN LESIONS, OVER 4 04/14/20 67453-BSXY SKIN LESIONS, OVER 4 01/30/20 19310-KGRM SKIN LESIONS, OVER 4 11/19/19 47114-HIGZ SKIN LESIONS, OVER 4 09/10/20 67462-BUOK SKIN LESIONS, OVER 4 07/05/20 71939-UVHN SKIN LESIONS, OVER 4 04/26/20 57055-ONIR SKIN LESIONS, OVER 4 02/13/20 28001-XUMN SKIN LESIONS, OVER 4 12/04/19 56712-ZFRB SKIN LESIONS, OVER 4 09/25/20 86210-NGJF SKIN LESIONS, OVER 4 07/17/20 68754-JZKH SKIN LESIONS, OVER 4 04/26/20 25267-DEUK SKIN LESIONS, OVER 4 02/16/20 12750-ICCB SKIN LESIONS, OVER 4 12/07/19 65829-EMZF SKIN LESIONS, OVER 4 09/21/20 90519-BDEI SKIN LESIONS, OVER 4 07/13/20 21 49834-JYCW SKIN LESIONS, OVER 4 04/11/20 76054-SSGI SKIN LESIONS, OVER 4 01/14/20 43048-AFCT SKIN LESIONS, OVER 4 07/15/20 20 37184-MVWL SKIN LESIONS, OVER 4 12/15/19 20 56533-BSRA SKIN LESIONS, OVER 4 08/13/20 10581-KQTR SKIN LESIONS, OVER 4 02/06/20 18 10938-MNKI SKIN LESIONS, OVER 4 11/23/19 18 40173-WCMK SKIN LESIONS, OVER 4 06/25/20 18 93353-BFQO SKIN LESIONS, OVER 4 04/16/20 18 23965-ZVCJ SKIN LESIONS, OVER 4 06/04/20 19 39593-ZZVT SKIN LESIONS, OVER 4 04/02/20 42802-XBRR SKIN LESIONS, OVER 4 12/27/19 19 15005-SJYL SKIN LESIONS, OVER 4 09/25/20 18 64386-LIOO SKIN LESIONS, OVER 4 09/19/20 28881-VLUW SKIN LESIONS, OVER 4 07/11/20 17 43639-CDNN SKIN LESIONS, OVER 4 01/30/20 17 63465-QITD SKIN LESIONS, OVER 4 06/15/20 17 93544-ZXKO SKIN LESIONS, OVER 4 10/30/19 17 18495-ANWN SKIN LESIONS, OVER 4 08/21/20 16 74730-KQZW SKIN LESIONS, OVER 4 05/24/20 16 41408-BEFY SKIN LESIONS, OVER 4 02/23/20 16 89966-ILOL SKIN LESIONS, OVER 4 07/20/20 14 21670-UVMJ SKIN LESIONS, OVER 4 05/10/20 15 40789-EJPJ SKIN LESIONS, OVER 4 12/16/19 16 47782-XKKD SKIN LESIONS, OVER 4 07/19/20 15 60562-NWRN SKIN LESIONS, OVER 4 09/30/20 15 96048-ZFVN SKIN LESIONS, OVER 4 09/21/20 14 77315-KCQG SKIN LESIONS, OVER 4 12/14/19 15 16458-DYJY SKIN LESIONS, OVER 4 02/25/20 15 19094-CDDL SKIN LESIONS, 2 TO 4 05/04/20 14 94147-BGTD SKIN LESIONS, 2 TO 4 01/22/20 14 61295-SVAH SKIN LESIONS, 2 TO 4 11/20/19 14 Next Appt Details Provider Name:Jacek Garcia Charly , 12/02/2025 11:00:00 AM, [address] [facility], [address], [place], [address], Insurance Providers Payer Name Payer Address Payer Phone Subscriber Number Group Number Insured Name Patient Relationship to Insured Coverage Start Date Coverage End Date Medicare National [employer] [address] [place] [address] [id number] EribertoGerardo burnett Self - patient is the insured 0 [employer] [address] [place] [address] [id number] Gerardo Wei Self - patient is the [...]
== END 2025-09-03 10:34 | disposition home or self-care (01) ==
LOC: HO.HMCC 09:39
PROVIDERS: PCP Internal Medicine; Visit Provider Internal Medicine
DX: Z00.00 Encounter for general adult medical examination without abnormal findings (principal); E11.69 Type 2 diabetes mellitus with other specified complication; I48.0 Paroxysmal atrial fibrillation; I10 Essential (primary) hypertension; E78.5 Hyperlipidemia, unspecified